=== PATIENT | female | born 1990 | race Caucasian/White ===

== ENCOUNTER → 2018-01-16 18:10 | Outpatient (CLI) | payer MEDICAID, SELFPAY ==
[2018-01-20 15:41] LABS: HPV Reflexed? NOT INDICATED
== END ==
PROVIDERS: Visit Provider Nurse Practitioner Women's Health
DX: Z12.4 Encounter for screening for malignant neoplasm of cervix (principal)
CPT/HCPCS: 88175; G0145

== ENCOUNTER → 2018-01-21 16:35 | Outpatient (CLI) | payer MEDICAID, SELFPAY ==
[2018-01-21 17:49] LABS: Prolactin 17.6 ng/mL; Thyroid Stim Hormone (TSH) 1.02 uIU/mL (0.358-3.74)
[2018-01-21 17:51] LABS: Progesterone Level 13.64 ng/mL (See Comment)
== END ==
PROVIDERS: Family Provider Family Medicine; PCP Family Medicine; Visit Provider Nurse Practitioner Women's Health
DX: N92.6 Irregular menstruation, unspecified (principal)
CPT/HCPCS: 36415; 84144; 84146; 84443

== ENCOUNTER → 2018-01-28 16:33 | Outpatient (CLI) | payer MEDICAID, SELFPAY ==
[2018-01-28 18:45] LABS: Estradiol 35.6 pg/mL
== END ==
PROVIDERS: Family Provider Family Medicine; PCP Family Medicine; Visit Provider Nurse Practitioner Women's Health
DX: N92.6 Irregular menstruation, unspecified (principal)
CPT/HCPCS: 36415; 82670; 83001

== ENCOUNTER → 2021-03-14 15:18 | Outpatient (CLI) | payer MEDICAID, SELFPAY ==
[2021-02-08 13:20] VITALS: BMI 25.7
--- NOTE | 2021-03-14 15:19 | MRI_ITS ---
STUDY: MRI LUMBAR SPINE WITHOUT CONTRAST REASON FOR EXAM: Female, 30 years old. pain TECHNIQUE: Standardized fat and water weighted pulse sequences were obtained in the sagittal and axial following administration of . COMPARISON: None FINDINGS: T12-L1: Normal endplates. Normal disc height, hydration and morphology. Normal bilateral facet joints. Normal central canal and bilateral lateral recesses. Normal bilateral intervertebral neural foramina. Normal lumbar lordosis. There is no substantial scoliosis. Normal conus medullaris that terminates at the L1-L2 level. L1-2: Normal endplates. Normal disc height, hydration and morphology. Normal bilateral facet joints. Normal central canal and bilateral lateral recesses. Normal bilateral intervertebral neural foramina. L2-3: Normal endplates. Normal disc height, hydration and morphology. Normal bilateral facet joints. Normal central canal and bilateral lateral recesses. Normal bilateral intervertebral neural foramina. L3-4: Normal endplates. Normal disc height, hydration and morphology. Normal bilateral facet joints. Normal central canal and bilateral lateral recesses. Normal bilateral intervertebral neural foramina. L4-5: Normal endplates. Normal disc height, hydration and morphology. Normal bilateral facet joints. Normal central canal and bilateral lateral recesses. Normal bilateral intervertebral neural foramina. L5-S1: Normal endplates. Normal disc height, hydration and morphology. Normal bilateral facet joints. Normal central canal and bilateral lateral recesses. Normal bilateral intervertebral neural foramina. Normal visualized sacral ala. Normal visualized paraspinous soft tissue structures. There is an incompletely visualized presumed cystic possibly adnexal structure in the pelvis at 5.5 cm. MRI/Spine Lumbar (Routine) IMPRESSION: 1. Normal lumbar spine. 2. Patent canal, no neural compression. 3. Pelvic cystic structure, refer to pelvic ultrasonography. Electronically Signed: Margo Harris MD at 16:57 EDT Tel , Service support ,
== END ==
PROVIDERS: PCP Family Medicine; Referring Provider Orthopaedic Surgery; Visit Provider Orthopaedic Surgery
DX: M51.37 Other intervertebral disc degeneration, lumbosacral region (principal)
CPT/HCPCS: 72148

== ENCOUNTER 2025-06-10 05:27 | Day surgery (SDC) | payer MEDICAID, SELFPAY ==
[2025-06-10] VITALS (9 sets, daily range): BP systolic 87–112; BP diastolic 58–85; PULSE 81–94; RESP 14–16; TEMP 36.1–36.6; O2SAT 97–100; BMI 25.4
--- OUTSIDE RECORDS SUMMARY | 2025-06-10 05:30 | XMS RPT_ITS | CCD ---
Author Organization [facility] Care Team Providers Care Civil Engineering Specialist Name Role Phone Joyce Montoya PA-C Unavailable Joyce Montoya PA-C Unavailable Podiatry Provider Unavailable Unavailable ENT Provider Unavailable Unavailable Jasvir HARDING, Dr. Sherman Unavailable Orthopedic Provider Unavailable Unavailable Physical Therapy, Gio Mcmahan Unavailable Sterile Proc Tech/Gynecology Prov. Unavailable Un available [facility], [facility] Unavail able Neurology Provider Unavailable Unavailable Cody KING, Tramaine Garcia Unavailable Ella Ferrari MD Unavailable Jeffrey Collins MD Unavailable Whitney MEYERS, Rosemarie Samuel Unavailable Kinza CAR CHANGER, Michaela Unavailable Bel Dias Unavailable Vess CAR CHANGER, Neilee L Unavailable Unavailable Adolfo CAR CHANGER, Leslie Shirley Unavailable Unavailable Jeremy GARG, Ysabel Wright Unavailable Unavailable Danny CAR CHANGER, Nadia Linares Unavailable Unavailab harry Rc CAR CHANGER, Rebeca Ramirez Unavailable Unavailab harry Mathew CAR CHANGER, Page Unavailable Unavailsalina Head PA-C, Manju Garzon Unavailable [phone] Rosemarie Beltran RN Unavailable Unavaila chris Schultz NP-C, Ernesto Figueredo Unavailable Guerrero CAR CHANGER, Genny Unavailable Unavailable Raul WIN, Jennie Sharma Unavailable Ekta CAR CHANGER, Tess Unavailable Unavailable Fernie SANTOS, Genny Unavailable Unavailable Wai SANTOS, Roro Unavailable Unavailable Vahe SANTOS, Beena Unavailable Unavailable Abdirizak CAR CHANGER, Kadeem Unavailable Unavailable Unavailable Unavailable Antunez LATRICEKarolina Unavailable Unavailabl e Physical Therapy Provider Unavailable Unavai lable MONTOYA, JOYCE PAC Consulting Unavailable MONTOYA, JOYCE PAC Primary Care Unavailable MONTOYA, JOYCE PAC Admitting Unavailable MONTOYA, JOYCE PAC Attending Unavailable PROVIDER, UNKNOWN Consulting Unavailable MONTOYA, JOYCE PAC Consulting Unavailable MONTOYA, JOYCE PAC Primary Care Unavailable MONTOYA, JOYCE PAC Admitting Unavailable MONTOYA, JOYCE PAC Attending Unavailable PROVIDER, UNKNOWN Consulting Unavailable ANA, MAT PAC Primary Care Unavailable ANA, MAT PAC Admitting Unavailable MONTOYA, JOYCE PAC Consulting Unavailable ANA, MAT PAC Attending Unavailable PROVIDER, UNKNOWN Consulting Unavailable MONTOYA, JOYCE PAC Attending Unavailable MONTOYA, JOYCE PAC Consulting Unavailable MONTOYA, JOYCE PAC Primary Care Unavailable MONTOYA, JOYCE PAC Admitting Unavailable PROVIDER, UNKNOWN Consulting Unavailable VASSAS, MANJU Attending Unavailable VASSAS, MANJU Primary Care Unavailable VASSAS, MANJU Admitting Unavailable MONTOYA, JOYCE PAC Consulting Unavailable MONTOYA, JOYCE PAC Referring Unavailable PROVIDER, UNKNOWN Consulting Unavailable VASSAS, MANJU Attending Unavailable VASSAS, MANUJ Primary Care Unavailable VASSAS, MANJU Admitting Unavailable MONTOYA, JOYCE PAC Consulting Unavailable PROVIDER, UNKNOWN Consulting Unavailable VEGA ROSADO Attending Unavailable VEGA ROSADO Primary Care Unavailable VEGA ROSADO Admitting Unavailable MONTOYA, JOYCE PAC Referring Unavailable MONTOYA, JOYCE PAC Consulting Unavailable PROVIDER, UNKNOWN Consulting Unavailable DEON JUAREZ DO Attending Unavailable DEON JUAREZ DO Primary Care Unavailable DEON JUAREZ DO Admitting Unavailable MONTOYA, JOYCE PAC Consulting Unavailable MONTOYA, JOYCE PAC Referring Unavailable PROVIDER, UNKNOWN Consulting Unavailable MONTOYA, JOYCE PAC Consulting Unavailable JORDAN BEAN DR Attending Unavailable JORDAN BEAN DR Primary Care Unavailable JORDAN BEAN DR Admitting Unavailable PROVIDER, UNKNOWN Consulting Unavailable Seville TERESE-CRosemarie Primary Care Provider Whitney GUDINO-CRosemarie Referring Provider [phone] Tramaine Fuentes MD Attending Provider Dr. Jr Pacheco MD Attending Provider [phone] Tramaine Fuentes Attending Unavailable Seville Rosemarie GUDINO Primary Care Unavailable Seville Rosemarie GUDINO Referring Unavailable [facility] Unavailable Jr Pacheco Attending Unavailable Tramaine Fuentes Attending Unavailable Tramaine Fuentes Referring Unavailable [facility] Rosemarie [facility] Unavailable Medications Current Medications Medication Drug Class(es) Dates Sig (Normalized) Sig (Original) acetaminophen 500 mg / pamabrom 25 mg oral tablet (2 sources) Start: 05-14-2025 Acetaminophen-Pama brom (Midol) 500-25 mg tablet Active 1 {tbl} PO EVERY 6 HOURS as needed May 14, 2025 12:00am famciclovir 500 mg oral tablet (20 sources) Herpes Simplex Virus Nucleoside Analog DNA Polymerase Inhibitor Start: 10-30-2024 famciclovir 500 mg tablet ; 3 (three) Tablet now for 0 days Quantity: 3 {Tablet} Refills: 0 Ordered: 30-Oct-2024 MIRA Montoya Start: 30-Oct-2024 Start: 01-15-2024 End: 09-23-2024 famciclovir 500 mg tablet ; 3 (three) Tablet now for 0 days Quantity: 3 {Tablet} Refills: 0 Ordered: 23-Sep-2024 DANIELLE Carreno Start: 15-Jan-2024 End: 23-Sep-2024 Status: Inactive Start: 11-02-2020 End: 01-17-2021 Famciclovir 500 MG Oral Tabl et ; 3 (three) Tablet now for 0 days Quantity: 3 {Tablet} Refills: 0 Ordered: 17-Jan-2021 LATRICE Solano Start: 02-Nov-2020 End: 17-Jan-2021 Status: Inactive 72 hr scopolamine 0.0139 mg/hr transdermal system (20 sources) Anticholinergic Start: 11-20-2023 apply 1 dose transdermal route once daily as needed scopolamine 1 mg over 3 days transdermal patch ; 1 (one) Patch every 3rd day prn for 0 days Quantity: 6 {Patch} Refills: 0 Ordered: 20-Nov-2023 DANIELLE Carreno Start: 20-Nov-2023 Start: 11-15-2021 End: 03-20-2022 apply 1 dose transdermal route every hour Scopolamine 1 MG/3DAYS Transdermal Patch 72 Hour ; 1 (one) Patch every 3rd day for 0 days Quantity: 6 {Patch} Refills: 0 Ordered: 20-Mar-2022 DANIELLE Enciso Start: 15-Nov-2021 End: 20-Mar-2022 Status: Inactive Completed/Discontinued Medications Medication Drug Class(es) Dates Sig (Normalized) Sig (Original) acetaminophen 325 mg / HYDROcodone bitartrate 5 mg oral tablet (20 sources) Opioid Agonist NORCO, 5-325MG (Oral Tablet) ; (5-325 MG) Status: Inactive [id number] actuat albuterol 0.09 mg/actuat metered dose inhaler (20 sources) beta2-Adrenergic Agonist Start: 11-18-2019 End: 05-11-2020 take 2 puff(s) by inhalation every four to six hours ProAir HFA 108 (90 Base) MCG/ACT Inhalation Aerosol Solution ; 2 (two) puffs Every 4-6 hours for 0 days Quantity: 1 {Inhaler} Refills: 0 Ordered: 11-May-2020 LATRICE Solano Start: 18-Nov-2019 End: 11-May-2020 Status: Inactive Comments: Maximum 12 puffs/day Start: 06-04-2019 End: 07-14-2019 take 2 puff(s) by inhalation every four to six hours as needed Ventolin HFA 108 (90 Base) MCG/ACT Inhalation Aerosol Solution ; 2 (two) puff(s) every 4-6hrs prn for 0 days Quantity: 1 {Inhaler} Refills: 0 Ordered: 14-Jul-2019 BRITANY Luna Start: 04-Jun-2019 End: 14-Jul-2019 Status: Inactive Comment on above: Maximum 12 puffs/day amoxicillin 875 mg / clavulanate 125 mg oral tablet (20 sources) Penicillin-class Antibacterial Start: 7 End: 7 take 1 tablet by mouth twice daily at mealtime Augmentin 875-125 MG Oral Tablet ; 1 Tab two times daily for 10 days Quantity: 20 {Tablet} Refills: 0 Ordered: 19-Jun-2017 MIRA Olson Start: 19-Jun-2017 End: 29-Jun-2017 Status: Inactive Comments: Take with food Comment on above: Take with food azithromycin 250 mg oral tablet (20 sources) Macrolide Antimicrobial Start: 9 End: 9 Zithromax Z-Vance 250 MG Oral Tablet ; 2 (two) Tabs day one, then one daily for 4 days for 0 days Quantity: 1 {Package} Refills: 0 Ordered: 14-Jul-2019 BRITANY Luna Ysabel Wright Start: 04-Jun-2019 End: 14-Jul-2019 Status: Inactive Start: 09-27-2015 End: 09-30-2015 take 1 tablet by mouth once daily AZITHROMYCIN, 500MG (Oral Tablet) ; 1 (one) Tablet daily for 3 days Quantity: 3 {Tablet} Refills: 0 Ordered: 27-Sep-2015 MD Ella Ferrari Start: 27-Sep-2015 End: 30-Sep-2015 Status: Inactive Start: 09-29-2014 End: 04-15-2015 ZITHROMAX Z-VANCE, 250MG (Oral Tablet) ; 2 (two) Tabs day one, then one daily for 4 days for 0 days Quantity: 1 {Package} Refills: 0 Ordered: 15-Apr-2015 LATRICE Delgado Start: 29-Sep-2014 End: 15-Apr-2015 Status: Inactive ciprofloxacin 250 mg oral tablet (20 sources) Quinolone Antimicrobial Start: 08-31-2023 End: 09-05-2023 ciprofloxacin 250 mg tablet ; 1 (one) tablet two times daily for 5 days Quantity: 10 {Tablet} Refills: 0 Ordered: 31-Aug-2023 MIRA Montoya Start: 31-Aug-2023 End: 05-Sep-2023 Status: Inactive Start: 05-14-2023 End: 05-19-2023 Cipro 250 mg tablet ; 1 (one ) Tablet two times daily for 5 days Quantity: 10 {Tablet} Refills: 0 Ordered: 14-May-2023 MIRA Montoya Start: 14-May-2023 End: 19-May-2023 Status: Inactive cyclobenzaprine hydrochloride 10 mg oral tablet (20 sources) Muscle Relaxant Start: 01-17-2021 End: 10-20-2021 Cyclobenzaprine HCl 10 MG Oral Tablet ; 1 (one) Tablet beofre bed if needed for muscle spasms for 0 days Quantity: 30 {Tablet} Refills: 0 Ordered: 20-Oct-2021 LATRICE Dash Start: 17-Jan-2021 End: 20-Oct-2021 Status: Inactive Comments: may cause drowsiness Comment on above: may cause drowsiness methylPREDNISolone 4 mg oral tablet (20 sources) Corticosteroid Start: 04-10-2016 End: 04-16-2016 MEDROL, 4MG (Oral Tablet Therapy Pack) ; 1 Tab as directed for 6 days Quantity: 1 {dose_pack} Refills: 0 Ordered: 01-Jun-2016 MIRA Olson Start: 10-Apr-2016 End: 16-Apr-2016 Status: Inactive Start: 01-22-2014 End: 01-28-2014 MEDROL (VANCE), 4MG (Oral Tabl et) ; 1 (one) Tablet as directed on pack for 6 days Quantity: 1 {Dose_Pack} Refills: 0 Ordered: 22-Jan-2014 MD Ella Ferrari Start: 22-Jan-2014 End: 28-Jan-2014 Status: Inactive Naproxen (20 sources) Nonsteroidal Anti-inflammatory Drug Naproxen Status: Inactive oseltamivir 75 mg oral capsule (20 sources) Neuraminidase Inhibitor Start: 017 End: take 1 capsule by mouth twice daily Tamiflu 75 MG Oral Capsule ; 1 (one) Cap twice daily for 5 days Quantity: 10 {Capsule} Refills: 0 Ordered: 24-Nov-2016 SHAHNAZ Schultz Start: 24-Nov-2016 End: 29-Nov-2016 Status: Inactive phenazopyridine hydrochloride 100 mg oral tablet (20 sources) Start: 014 End: 014 take 1 tablet by mouth three times daily PYRIDIUM, 100MG (Oral Tablet) ; 1 (one) Tablet TID for 2 days Quantity: 6 {Tablet} Refills: 0 Ordered: 13-May-2014 MIRA Head Start: 13-May-2014 End: 15-May-2014 Status: Inactive predniSONE 20 mg oral tablet (20 sources) Start: 023 End: predniSONE 20 mg tablet ; 1 (one) Tablet as directed for 0 days Quantity: 20 {Tablet} Refills: 0 Ordered: 23-Sep-2024 DANIELLE Carreno Start: 20-Aug-2023 End: 23-Sep-2024 Status: Inactive Comments: Take 3tabs qd for 3 days thenTake 2tabs qd for 3 days thenTake 1tab qd for 3 days thenTake 1/2tab qd for 4 days. Start: 03-20-2022 End: 06-29-2022 take 3 tablets by mouth once daily, then take 2 tablets by mouth once daily, then take 1 tablet by mouth once daily, then take 0.5 tablet by mouth once daily predniSONE 20 MG Oral Tablet ; 1 (one) Tablet as directed for 0 days Quantity: 20 {Tablet} Refills: 0 Ordered: 29-Jun-2022 LATRICE Dash Amanda Start: 20-Mar-2022 End: 29-Jun-2022 Status: Inactive Comments: Take 3tabs qd for 3 days thenTake 2tabs qd for 3 days thenTake 1tab qd for 3 days thenTake 1/2tab qd for 4 days. Comment on above: Take 3tabs qd for 3 days thenTake 2tabs qd for 3 days thenTake 1tab qd for 3 days thenTake 1/2tab qd for 4 days. progesterone 200 mg oral capsule (20 sources) Progesterone Start: 07-08-2024 End: 09-23-2024 proGESTerone micronized 200 mg capsule ; 1 (one) Capsule by mouth and 1 capusle vaginal at night before bed for 0 days Quantity: 60 {Capsule} Refills: 2 Ordered: 23-Sep-2024 DANIELLE Carreno Start: 08-Jul-2024 End: 23-Sep-2024 Status: Inactive Start: 01-29-2023 End: 02-12-2023 take 1 capsule by mouth at bedtime Progesterone 200 MG Oral Capsule ; 1 (one) Capsule at bedtime for 0 days Quantity: 30 {Capsule} Refills: 3 Ordered: 12-Feb-2023 DANIELLE Carreno Start: 29-Jan-2023 End: 12-Feb-2023 Status: Inactive sulfamethoxazole 800 mg / trimethoprim 160 mg oral tablet (20 sources) Dihydrofolate Reductase Inhibitor Antibacterial, Sulfonamide Antimicrobial Start: 08-27-2023 End: 09-01-2023 sulfamethoxazole 800 mg-trimethoprim 160 mg tablet ; 1 (one) tablet two times daily for 5 days Quantity: 10 {Tablet} Refills: 0 Ordered: 27-Aug-2023 MIRA Montoya Start: 27-Aug-2023 End: 01-Sep-2023 Status: Inactive Start: 03-14-2023 End: 03-19-2023 take 1 tablet by mouth twice daily Sulfamethoxazole-Trimethoprim 800-160 MG Oral Tablet ; 1 (one) Tablet two times daily for 5 days Quantity: 10 {Tablet} Refills: 0 Ordered: 14-Mar-2023 MIRA Montoya Start: 14-Mar-2023 End: 19-Mar-2023 Status: Inactive Start: 03-20-2022 End: 03-23-2022 take 1 tablet by mouth twice daily Sulfamethoxazole-Trimethoprim 800-160 MG Oral Tablet ; 1 (one) Tablet two times daily for 3 days Quantity: 6 {Tablet} Refills: 0 Ordered: 20-Mar-2022 MIRA Montoya Start: 20-Mar-2022 End: 23-Mar-2022 Status: Inactive Start: 04-04-2018 End: 04-11-2018 take 1 tablet by mouth twice daily Bactrim DS 800-160 MG Oral Tablet ; 1 Ta b two times daily for 7 days Quantity: 14 {Tablet} Refills: 0 Ordered: 04-Apr-2018 MIRA Olson Start: 04-Apr-2018 End: 11-Apr-2018 Status: Inactive SUMAtriptan 50 mg oral tablet (20 sources) Serotonin-1b and Serotonin-1d Receptor Agonist Start: 10-27-2015 End: 06-19-2017 Imitrex 50 MG Oral Tablet ; 1 (one) Tablet Tablet at headache onset and then repeat dose 2 hours later if headache persists for 0 days Quantity: 9 {Tablet} Refills: 0 Ordered: 19-Jun-2017 LATRICE Solano Start: 27-Oct-2015 End: 19-Jun-2017 Status: Inactive traMADol hydrochloride 50 mg oral tablet (20 sources) Opioid Agonist Start: 04-10-2016 End: 06-19-2017 take 1 tablet by mouth every six hours as needed Ultram 50 MG Oral Tablet ; 1 (one) Tablet Tablet every 6 hours as needed for 0 days Quantity: 30 {Tablet} Refills: 0 Ordered: 19-Jun-2017 LATRICE Solano Start: 10-Apr-2016 End: 19-Jun-2017 Status: Inactive Comments: Medication taken as needed. Comment on above: Medication taken as needed. Problems Active Problems Problem Classification Problem Date Documented Da te Episodic/Chronic Abdominal pain (20 sources) Finding of sensation of abdomen; Translations: [Unspecified abdominal pain] 01-26-2023 Episodic Acute bronchitis (20 sources) Acute bronchitis; Translations: [Acute bronchitis, unspecified] 06-19-2017 Episodic Administrative/social admission (20 sources) Issue of repeat prescriptions 07-19-2016 Episodic Allergic reactions (20 sources) Contact dermatitis; Translations: [Unspecified contact dermatitis, unspecified cause] 03-23-2022 Episodic Conditions associated with dizziness or vertigo (20 sources) Dizziness; Translations: [Dizziness and giddiness] 10-20-2021 Episodic Contraceptive and procreative management (20 sources) Reproductive finding; Translations: [Encounter for procreative management, unspecified] 06-06-2016 Episodic Genitourinary symptoms and ill-defined conditions (20 sources) Dysuria; Translations: [Dysuria] 03-14-2023 Episodic Headache; including migraine (20 sources) Acute headache; Translations: [Headache] 10-27-2015 Episodic Hemorrhage during ; abruptio placenta; placenta previa (20 sources) Antepartum hemorrhage; Translations: [Antepartum hemorrhage, unspecified, unspecified trimester] 08-30-2016 Episodic Influenza (20 sources) Influenza; Translations: [Influenza due to unidentified influenza virus with other respiratory manifestations] 11-24-2016 Episodic Lymphadenitis (20 sources) Cervical lymphadenopathy; Translations: [Localized enlarged lymph nodes] 03-03-2019 Episodic Menstrual disorders (20 sources) Missed period; Translations: [Irregular menstruation, unspecified] 02-02-2023 Chronic Noninfectious gastroenteritis (20 sources) Acute gastroenteritis; Translations: [Noninfective gastroenteritis and colitis, unspecified] 07-24-2017 Episodic Other bone disease and musculoskeletal deformities (20 sources) Costal chondritis; Translations: [Chondrocostal junction syndrome [Tietze]] 04-10-2016 Episodic Other circulatory disease (20 sources) Pulmonary congestion ; Translations: [Other specified symptoms and signs involving the circulatory and respiratory systems] 06-04-2019 Episodic Other complications of (20 sources) H/O: miscarriage; Translations: [Supervision of with other poor reproductive or obstetric history, unspecified trimester] 02-05-2023 Episodic Other connective tissue disease (20 sources) Pain in right foot; Translations: [Pain in right foot] 05-12-2020 Episodic Other connective tissue disease (20 sources) Muscle spasm of cervical muscle of neck; Translations: [Other muscle spasm] 12-17-2017 Episodic Other connective tissue disease (20 sources) Osteophyte of bone; Translations: [Enthesopathy, unspecified] 12-10-2017 Episodic Other female genital disorders (20 sources) Abnormal uterine bleeding; Translations: [Abnormal uterine and vaginal bleeding, unspecified] 08-27-2023 Chronic Other gastrointestinal disorders (20 sources) Dysphagia; Translations: [Dysphagia, unspecified] 10-20-2021 Episodic Other injuries and conditions due to external causes (20 sources) Injury of shoulder region; Translations: [Unspecified injury of shoulder and upper arm, unspecified arm, initial encounter] 08-27-2023 Episodic Other injuries and conditions due to external causes (20 sources) Foreign body in vagina; Translations: [Foreign body in vulva and vagina, initial encounter] 03-25-2014 Episodic Other nervous system disorders (20 sources) Carpal tunnel syndrome of left wrist; Translations: [Carpal tunnel syndrome, left upper limb] 04-04-2018 Chronic Other nervous system disorders (20 sources) Hyperreflexia; Translations: [Abnormal reflex] 07-14-2019 Episodic Other non-traumatic joint disorders (20 sources) Pain in left knee; Translations: [Pain in joint, lower leg] 11-04-2018 Episodic Other non-traumatic joint disorders (20 sources) Ankle pain; Translations: [Pain in right ankle and joints of right foot] 03-11-2018 Episodic Other non-traumatic joint disorders (20 sources) Pain in right knee; Translations: [Pain in joint, lower leg] 03-13-2014 Episodic Other non-traumatic joint disorders (20 sources) Pain in right shoulder; Translations: [Pain in joint, shoulder region] Onset: 10-02-2024 09-23-2024 Episodic Other nutritional; endocrine; and metabolic disorders (20 sources) Overweight in adulthood with body mass index of 25 or more but less than 30; Translations: [Body mass index (BMI) 26.0-26.9, adult] 06-04-2019 Episodic Other nutritional; endocrine; and metabolic disorders (12 sources) Body mass index 25-29 - overweight; Translations: [Body mass index (BMI) 26.0-26.9, adult] 06-04-2019 Episodic Other and delivery including normal (20 sources) ; Translations: [Encounter for supervision of normal , unspecified, unspecified trimester] 08-23-2016 Episodic Other screening for suspected conditions (not mental disorders or infectious disease) (20 sources) Imaging result abnormal; Translations: [Abnormal findings on diagnostic imaging of other specified body structures] 12-18-2017 Chronic Other screening for suspected conditions (not mental disorders or infectious disease) (20 sources) Other specified abnormal findings of blood chemistry; Translations: [Other abnormal blood chemistry] 08-27-2023 Episodic Other skin disorders (20 sources) Nodule of buttock; Translations: [Localized swelling, mass and lump, trunk] 04-04-2018 Episodic Other skin disorders (20 sources) Pigmented skin lesion ; Translations: [Disorder of pigmentation, unspecified] 07-10-2022 Episodic Other skin disorders (20 sources) Mass of sacrum; Translations: [Localized swelling, mass and lump, trunk] 12-18-2017 Episodic Other upper respiratory infections (20 sources) Acute pharyngitis; Translations: [Acute pharyngitis, unspecified] 09-29-2015 Episodic Otitis media and related conditions (20 sources) Acute suppurative otitis media without spontaneous rupture of ear drum; Translations: [Acute suppurative otitis media without spontaneous rupture of ear drum, bilateral] 06-19-2017 Episodic Pneumonia (except that caused by tuberculosis or sexually transmitted disease) (20 sources) Atypical pneumonia; Translations: [Pneumonia, unspecified organism] 07-14-2019 Episodic Residual codes; unclassified (20 sources) Tobacco user; Translations: [Tobacco use] 08-27-2023 Episodic Residual codes; unclassified (20 sources) Edema of face ; Translations: [Localized edema] 08-27-2023 Episodic Spondylosis; intervertebral disc disorders; other back problems (4 sources) Degeneration of lumbosacral intervertebral disc; Translations: [Degeneration of intervertebral disc of lumbosacral region] 02-08-2021 Chronic Spondylosis; intervertebral disc disorders; other back problems (20 sources) Pain in the coccyx; Translations: [Sacrococcygeal disorders, not elsewhere classified] Onset: 01-09-2025 06-04-2019 Episodic Unclassified (20 sources) Abortions, spontaneous Onset: 01-29-2023 05-14-2023 Comment on above: 1. Unclassified (20 sources) Number of Children 05-14-2023 Comment on above: 1. Unclassified (20 sources) Number of Pregnancies 05-14-2023 Comment on above: 2. Unclassified (20 sources) Vaginal deliveries 05-14-2023 Comment on above: 1. Unclassified (14 sources) Transition into care - The patient is transitioning into care from an emergency room and a summary of care was reviewed. 07-24-2017 Unclassified (1 source) Follow up from hospital stay - Name of Hospital: [facility]. Date of Admission: 09/20/24. Date of Discharge: 09/21/24. The patient was hospitalized for upper extremity and shoulder pain . New medications include bactrim and ketorolac . Patient did not have any consultations ordered while in the hospital. No post hospital therapies were ordered. Patient was discharged to home. Current Symptoms: shoulder pain right . 09-23-2024 Unclassified (3 sources) [ADDITIONAL REASON] Follow up from hospital stay - Name of Hospital: [facility]. Date of Admission: 09/20/24. Date of Discharge: 09/21/24. The patient was hospitalized for upper extremity and shoulder pain . New medications include bactrim and ketorolac . Patient did not have any consultations ordered while in the hospital. No post hospital therapies were ordered. Patient was discharged to home. Current Symptoms: shoulder pain right . Note for Follow up from hospital stay: Patient reports that she has been having pain in her right shoulder since she had a surgery for a tubal ligation in July. She has been using Tylenol and Ibuprofen without lasting relief of her pain. She reports numbness in her arm at times, but denies any weakness of the arm. Her shoulder x-ray was normal in the ER. 09-23-2024 Unclassified (9 sources) Follow up from hospital stay - Name of Hospital: [facility]. Date of Admission: 09/20/24. Date of Discharge: 09/21/24. The patient was hospitalized for upper extremity and shoulder pain . New medications include bactrim and ketorolac . Patient did not have any consultations ordered while in the hospital. No post hospital therapies were ordered. Patient was discharged to home. Current Symptoms: shoulder pain right . Note for Follow up from hospital stay: Patient reports that she has been having pain in her right shoulder since she had a surgery for a tubal ligation in July. She has been using Tylenol and Ibuprofen without lasting relief of her pain. She reports numbness in her arm at times, but denies any weakness of the arm. Her shoulder x-ray was normal in the ER. 09-23-2024 Urinary tract infections (20 sources) Urinary tract infectious disease; Translations: [Urinary tract infection, site not specified] 11-07-2016 Episodic Viral infection (20 sources) Herpes labialis; Translations: [Herpesviral vesicular dermatitis] 11-02-2020 Episodic Past or Other Problems Problem Classification Problem Date Documented Date Episodic/Chronic Spontaneous (20 sources) Miscarriage; Translations: [Complete or unspecified spontaneous without complication] Onset: 06-06-2024 08-27-2023 Episodic Comment on above: recheck quant, dropp ing well Unclassified (20 sources) UTI - Symptoms include dysuria, urinary frequency, urinary urgency, dark urine, malodorous urine and back pain, but do not include hematuria, flank pain or abdominal pain. The pain is located in the back (low back). There is no radiation. The patient describes the pain as aching. Onset was sudden 1 week(s) ago. There is no known event that preceded symptom onset. The symptoms occur constantly. The patient describes this as moderate in severity and worsening. Associated symptoms do not include fever, chills, nausea, urinary incontinence, urethral discharge or vaginal discharge. The frequency of episodes has been 2 time(s) a year. Risk factors do not include indwelling catheter or current . Note for UTI: Used AZO yesterday with little relief of symptoms. 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 The horse suddenly jerked its head and she reports feeling something pop in her shoulder.) and has been occurring for 4 days. The course has been constant. The pain is characterized as a moderate sharp stabbing. The pain is described as being located in the right shoulder and is aggravated by any movement (Patient has bee wearing her arm in a sling she bought to prevent movement.). Relieving factors include nothing (Reports no relief from Tylenol or Ibuprofen). The symptoms have been associated with painful ROM, but have not been associated with muscle swelling, joint swelling, popping/crepitus, warmth, erythema, fever or chills. The shoulder pain was preceded by trauma. 08-20-2023 Unclassified (20 sources) Edema - The onset of the edema has been acute and has been occurring in a persistent pattern for 1 day (3 hours ( pt woke up at 630 am and noticed it then)) . The edema occurs abruptly. The edema is characterized as mild , and the course of the edema has been increasing (Patient feels that it has been getting worse). It affects the face (left cheek). The edema was precipitated by nothing (Denies any new exposures). The symptoms are relieved by nothing (Patient has not yet tried any OTC treatment). There have been no associated symptoms. Note for Edema: She denies any pain, facial weakness, vision changes, itching, or rash.She reports that she has a pus pocket above one of her upper teeth on the left side. She states that the dentist is aware of this and told her it is not a problem. She denies any associated tooth pain or fever. 07-17-2023 Unclassified (20 sources) UTI - Symptoms include dysuria, urinary frequency, hematuria (Reports blood when wiping after urinating), dark urine and back pain, but do not include urinary urgency, malodorous urine, flank pain or abdominal pain. The pain is located in the back. There is no radiation. The patient describes the pain as sharp, aching and burning. Onset was gradual 1 week(s) ago. There is no known event that preceded symptom onset. The symptoms occur constantly. The patient describes this as moderate in severity and worsening. Associated symptoms do not include fever, chills, nausea, vomiting or vaginal discharge. Note for UTI: Patient has not tried any OTC treatments at this time. 05-14-2023 Unclassified (20 sources) UTI - Symptoms include dysuria, urinary frequency, urinary urgency and malodorous urine, but do not include hematuria, dark urine, flank pain, abdominal pain or back pain. There is no assiciated pain. Onset was sudden 1 week(s) ago. There is no known event that preceded symptom onset. The symptoms occur frequently. The patient describes this as moderate in severity and unchanged. Symptoms are not relieved by phenazopyridine (Last took 3 days ago.). Associated symptoms do not include fever, chills, nausea, vomiting or vaginal discharge. 03-14-2023 Unclassified (20 sources) Menstrual problems - The menstrual problems are characterized as heavy menses and have been occurring in an episodic pattern. Each episode lasts 2 hours. The first day of the last menstrual period was : (currently). Currently : no (miscarriage). The symptoms have been associated with dizziness, but have not been associated with abdominal pain, anxiety, breast engorgement, chills, abdominal cramps, depression, diaphoresis, painful intercourse, fever, hot flashes, nausea, pallor, syncope, vomiting, weight gain, weight loss, acne, low back pain, hirsutism, galactorrhea or stress. There is no medical history of diabetes, thyroid disease, , miscarriage, pelvic inflammatory disease, ectopic , uterine/cervical cancer, emotional problems, endometriosis, blood dyscrasias, anorexia nervosa, gonadal dysgenesis, hypoplastic uterus, menopause, endocrine disorder or vaginitis. The patient denies the use of oral contraceptives, anticoagulants, aspirin, digitalis, adrenal steroids, thyroid medications or chemotherapy. There is no history of use of intrauterine device, hormone replacement therapy, infertility treatment or radiation treatment. Note for Menstrual problems: pt states bleeding is still very heavy changing pads every two hours went to ER- ER doctor was going to give medication to slow down bleeding and did not approve it 02-12-2023 Unclassified (20 sources) Absence of Menstruation/Amenorrh ea - Contraception is not used. The first day of the LMP was : (12/26/22). Menstrual history is described as regular. Note for Absence of menstruation: having abdominal cramping and did have some spotting a couple of days ago, no other symptoms 01-26-2023 Unclassified (20 sources) Procedure - Patient is here today to have skin lesion removed from the right side of neck. Patient had this lesion evaluated approximately 2 weeks ago and wanted to reschedule at a later time for removal. 07-10-2022 Unclassified (20 sources) Skin lesion - The skin lesion appeared gradually and has been occurring for years (pt states she has had it almost her whole life.). It has been increasing in size. The lesion is characterized as brown, murphy, crusty and raised above the skin. The lesion is located on the neck (right side.). Note for Skin lesion: lesion is skin colored with some brown/martins coloring. Patient reports that is feels firm to touch. She reports that she is not bothered by the spot, but her wanted her to have it checked. 06-29-2022 Unclassified (20 sources) Rash - The onset of the rash has been sudden and has been occurring in a persistent pattern for 3 days. The course has been increasing. The rash is characterized as red and raised above the skin. The rash was first seen on the lower extremity (both legs). It spread to the lower extremity (Has been spreading up both legs, but she also feels itchy all over.). There has been associated itching and erythema, while there has been no associated pain, drainage or edema. There has been associated itching, while there has been no chills, fever, malaise or pain. Note for Rash: Patient was working outside before the rash started 03-20-2022 Unclassified (20 sources) [ADDITIONAL REASON] UTI - Symptoms include dysuria, urinary frequency, urinary urgency, dark urine, abdominal pain (lower) and back pain, but do not include hematuria, malodorous urine or flank pain. The pain is located in the suprapubic area, in the back and in the left lumbar area. There is no radiation. The patient describes the pain as burning. Onset was sudden 1 week(s) ago. There is no known event that preceded symptom onset. The symptoms occur constantly. Symptoms are relieved by cranberry juice (helps only temporarily). Associated symptoms do not include fever, nausea or vaginal discharge. Note for UTI: Patient has a history of frequent UTIs 03-20-2022 Unclassified (20 sources) Dizziness - The onset of the dizziness has been sudden and has been occurring in a persistent pattern for 3 weeks. The course has been constant. The dizziness is characterized as spinning of the environment. The dizziness is precipitated by position change, head turning and standing suddenly. There has been associated nausea, vomiting, tinnitus and neck pain (She has noted a tender spot on the back of her head/neck that seems to make the dizziness worse when she presses on it), while there has been no associated headache, fever, ear pain, ear fullness, neck stiffness, visual changes, facial paralysis or falling episodes. The dizziness is relieved by rest. The dizziness is exacerbated by head turning, bending over, lying down, rolling over in bed, getting up quickly, standing and walking. The symptoms have been associated with tinnitus, while the symptoms have not been associated with anxiety, diplopia, fever, headache, loss of balance, loss of hearing, neurologic disease, paresthesia, recent head trauma or syncope. Note for Dizziness: States she has been wearing bands to help with vertigo and nausea along with going to chiropractor. This has worked for her in the past, but does not seem to be helping now. She reports that this usually happens once a year. Has tried meclizine in the past without relief of symptoms. Saw neurology 2 years ago for similar symptoms and was diagnosed with severe vertigo.States it feels like something is stuck in throat when she swallows and when she is laying down. This has been happening for the past 2 weeks. She denies any pain with swallowing. Has not noted worsening of symptom with swallowing solids vs liquids. 10-20-2021 Unclassified (20 sources) Back pain - The onset of the back pain has been gradual and has been occurring in an intermittent pattern for months. The course has been increasing. The pain is characterized as a dull ache (spasms). The pain is located in the lower back (left) and does not radiate. There are no precipitating factors. The symptoms have no relieving factors. There has been no associated bladder dysfunction, dysmenorrhea, dysuria, fever, hip pain, history of back surgery, incontinence of stool, incontinence of urine, leg weakness, paresthesias in leg or trauma. Note for Back pain: she was in office for this in August 2020 , had back xrays followed by physical therapy/she stopped the PT -stated it was not helping 01-17-2021 Unclassified (20 sources) Back pain - The onset of the back pain has been gradual and has been occurring in a persistent pattern for 2 months. The course has been increasing. The pain is characterized as stabbing and piercing. The pain is located in the lower back (left flank) and does not radiate. There are no precipitating factors. The symptoms are aggravated by exertion and have no relieving factors. The pain has been associated with flank pain, while there has been no associated abdominal pain, chills, bladder dysfunction, dysuria or fever. Note for Back pain: LMP last week 08-24-2020 Unclassified (20 sources) Foot pain - The pain is in the right foot and is located in the lateral column. The onset of the foot pain was sudden following no specific incident and has been occurring in a persistent pattern for 2 months. The course has been increasing. The pain is moderate. The pain is characterized as a dull aching. The pain is aggravated by physical activity and prolonged standing. The pain has not been relieved by anything. There has been no associated swelling or pain in ankle. There have been no previous diagnostic tests. There have been no previous evaluations. 05-11-2020 Unclassified (18 sources) Follow up consultation - The patient is here to follow-up after Emergency Room/Urgent Care on : (11/15/2019). Current symptoms include cough (chest hurts with coughing and shortness of breath). Note for Consultation follow-up: treated with injections-rocephin and augmentin-pneumonia; negative for flu; cough is worse at night when fever returns... 11-18-2019 Unclassified (18 sources) [ADDITIONAL REASON] Transition into care - The patient is transitioning into care from an emergency room and a summary of care was not provided. 11-18-2019 Unclassified (20 sources) Follow up consultation - The patient is here to follow-up after Emergency Room/Urgent Care on : (07/13/19). Current symptoms include dizziness (had been vomiting initially, but no nausea or vomiting today.). Note for Consultation follow-up: Pt. was given an rx antivert in ER, which she did not fill, since she has had it before and it was ineffective. They requested referral to neuro; labs reviewed : CBC, CMP, UA all WNL 07-14-2019 Unclassified (20 sources) Cold Symptoms - Symptoms include sneezing, nasal congestion, runny nose, non-purulent sputum, ear pain (draining), ear fullness, sore throat, dry cough (left rib area pain with cough), wheezing, fever, chills, general malaise and headache. The onset was gradual 5 day(s) ago. The symptoms occur frequently. The patient describes this as moderate in severity and worsening. Current treatment includes non-prescription cold medication and cough suppressants. The patient has been exposed to an individual with similar symptoms. Patient denies history of seasonal allergies, recurrent sinusitis, asthma or recurrent ear infections. 06-04-2019 Unclassified (20 sources) Lump - Patient is here today with a concern of lump located on left side of jawline. Noticed the lump being present yesterday and has increased in size. Will have pain of the area if she turns her head to the left. Area is tender to touch. No sore throat, mouth/toothpain, fever or chills. 03-03-2019 Unclassified (20 sources) Knee Pain - The onset of the knee pain has been sudden following no specific incident (woke up one morning with knee pain and popping) and has been occurring in a persistent pattern for 2 weeks. The course has been gradually worsening. The knee pain is moderate in the left knee. The knee pain is characterized as a dull aching. The knee pain is described as being located in the anterior knee. The knee pain is aggravated by physical activity. There were no relieving factors. The symptoms have been associated with catching, locking, painful ROM, decreased ROM and popping/crepitus, but have not been associated with joint swelling, instability, warmth, erythema, fever or other joint complaints. There were no previous diagnostic tests. There were no previous evaluations. There has been no previous physical therapy. There has been no previous surgeries. Assistive devices include bracing. Note for Knee pain: denies historical injury to knee 10-31-2018 Unclassified (18 sources) UTI - Symptoms include dysuria, urinary frequency, urinary urgency, dark urine, abdominal pain and back pain, but do not include hematuria or flank pain. The pain is located in the suprapubic area and in the back. The pain radiates to the back. The patient describes the pain as burning. Onset was gradual 1 week(s) ago. The symptoms occur frequently. The patient describes this as moderate in severity and worsening. Symptoms are relieved by cranberry juice. Associated symptoms do not include fever, chills, nausea, vomiting or urinary incontinence. 04-04-2018 Unclassified (18 sources) [ADDITIONAL REASON] Wrist Pain - The pain is in the left wrist. The onset of the wrist pain has been gradual and has been occurring in a persistent pattern for months. The course has been worsening. The wrist pain is characterized as a moderate to severe burning sensation. Aggravating factors include any movement. There are no relieving factors. Associated features include painful ROM, but do not include joint swelling, instability, popping/crepitus, warmth, erythema or fever. 04-04-2018 Unclassified (20 sources) Ankle pain - The onset of the ankle pain has been sudden following no specific incident and has been occurring in a persistent pattern for 2 days. The course has been gradually worsening. The pain is characterized as a moderate sharp stabbing. The pain is in the right ankle and is described as being located in the lateral ankle. The pain is aggravated by physical activity. There are no relieving factors. There have been no previous diagnostic tests. There has been no previous medication use. Note for Ankle pain: Pt. has used an haresh wrap and ankle brace with no improvement. requesting off work slip for today 03-11-2018 Unclassified (20 sources) Neck Pain - The onset of the neck pain has been gradual following no specific incident and has been occurring in a persistent pattern for 4 days. The course has been gradually worsening. The neck pain is described as a moderate sharp stabbing. The neck pain is described as being located in the right lateral neck and radiating to the into right shoulder. Aggravating factors include lifting, position of arm and extension. There have been no relieving factors. Associated features include neck stiffness, shoulder pain (right) and arm weakness, but there is no associated catching, fever or paresthesias in arms. There have been no previous diagnostic tests. There have been no previous evaluations. There has been no previous physical therapy. There has been no previous neck surgery. Previous medications have included anti-inflammatory medication (ibuprofen). 12-17-2017 Unclassified (20 sources) tailbone pain - present for 3 months, feels it on the inside but is not visible on the outside, pain is at the base of the tailbone and has worsened recently , but has not gotten larger. She denies trauma/fall...denies drainage from area 09-11-2017 Unclassified (20 sources) Back pain - The onset of the back pain has been sudden and has been occurring in a persistent pattern for 1 day. The course has been constant. The pain is characterized as a dull ache. The pain is located in the lower back and does not radiate. There are no precipitating factors. The symptoms are relieved by nothing (has used tylenol and ibuprofen). There has been no associated abdominal pain, dysuria or fever. Note for Back pain: Recently had gastroenteritis which is improving. Across entire low back.Pain increases with movement.No radiation.No numbness/tingling. 07-30-2017 Unclassified (19 sources) Follow up consultation - The patient is here to follow-up after Emergency Room/Urgent Care on : (07/23/2017). Current symptoms include diarrhea, dizziness. Note for Consultation follow-up: patient went to ER for vomiting and diarrhea but had a syncopal episode while there, pt states that at one point her BP was extremely low. She received 3 L of fluid and sent home dx:syncope secondary to dehydration--afebrile Continues with diarrhea, but vomiting has resolved 07-24-2017 Unclassified (20 sources) [ADDITIONAL REASON] Transition into care - The patient is transitioning into care from an emergency room and a summary of care was reviewed. 07-24-2017 Unclassified (20 sources) Cold Symptoms - Symptoms include nasal congestion, runny nose, purulent discharge, ear fullness, sore throat, scratchy throat, dry cough, productive cough, wheezing, fever, chills and general malaise, but do not include sneezing or ear pain. The onset was sudden 4 day(s) ago. The symptoms occur constantly. The patient describes this as moderate in severity and worsening. Current treatment includes non-prescription cold medication (dayquil & nyquil). Risk factors include smoking. The patient has not been exposed to an individual with a cough or an individual with similar symptoms. Patient denies history of seasonal allergies, recurrent sinusitis or asthma. 06-19-2017 Unclassified (20 sources) UTI - Symptoms include dysuria, urinary frequency, hematuria, malodorous urine, abdominal pain and back pain. The pain is located in the suprapubic area. There is no radiation. The patient describes the pain as burning and colicky (cramping started today). Onset was gradual 2 day(s) ago. There is no known event that preceded symptom onset. The patient describes this as moderate in severity and worsening. Associated symptoms do not include fever, chills, nausea, vomiting, urethral discharge or vaginal discharge. Risk factors do not include current or diaphragm use. Note for UTI: Has not taken anything for symptoms. 11-07-2016 Unclassified (20 sources) threatened - lmp 07/23/2016, started bleeding sunday, went to er, bloodwork showed , no u/s done/ 08-30-2016 Unclassified (20 sources) Follow up consultation - The patient is here to follow-up after Emergency Room/Urgent Care on : (04/08/16). Current symptoms include chest pain (Pt. continues with left chest discomfort radiating into abdomen with palpatino of the central sternum. Ibuprofen is ineffective. Percocet helps at times, but makes her sleepy. Notes that deep breaths, movement, and plapation increase her pain. denies fever, SOB, diaphoresis...). Note for Consultation follow-up: EKG and CXR were negative in ER; patient declines IVs and Labs in the ER 04-10-2016 Unclassified (20 sources) Headache - The onset of the headache has been sudden and has been occurring in a persistent pattern for hours (started at 3am and hasn't let up. At 4am she took ibuprofen 800mg without improvement.). The course has been constant. The headache is characterized as severe and pounding. The headache is experienced upon awakening and any time of the day (no diurnal variation). The headache is described as being located in the entire head. The symptoms are aggravated by noise and bright light. The symptoms have been associated with nausea and vomiting, while the symptoms have not been associated with migraine in the past or sore throat. Note for Headache: Pain is 8/10. Currently on menses. No family history of migraines. No recent cold symptoms. Headache is in entire head but is moving behind eyes. 10-27-2015 Unclassified (20 sources) Cold Symptoms - Symptoms include nasal congestion, runny nose, ear pain (bilateral), sore throat and facial pain (pressure), but do not include ear fullness, hoarseness, dry cough, productive cough, fever, chills, general malaise or headache. The onset was sudden 1 day(s) ago (started last evening.). The symptoms occur constantly. The patient describes this as mild and worsening. The patient is not currently being treated for this problem. 09-27-2015 Unclassified (20 sources) Follow up consultation - The patient is here to follow-up after Emergency Room/Urgent Care on : (04-12-15). Follow up visit with no current symptoms. Note for Consultation follow-up: Pt was in the ER for abd pain. Was told it was likely an ovarian cyst since this has happened 2 months back to back.... Pain has resolved. 04-15-2015 Unclassified (20 sources) Cold Symptoms - Symptoms include nasal congestion, runny nose, ear pain, ear fullness, dry cough, productive cough, fever (upset stomach x one week, vomited this am, diarrhea) and general malaise, but do not include sneezing, sore throat or wheezing. The onset was gradual 1 week(s) ago. The symptoms occur frequently. The patient describes this as moderate in severity and unchanged. The patient is not currently being treated for this problem. The patient has not been exposed to an individual with similar symptoms. Patient denies history of seasonal allergies, recurrent sinusitis, recurrent strep pharyngitis, asthma, tonsillectomy or recurrent ear infections. 09-29-2014 Unclassified (20 sources) Cold Symptoms - Symptoms include ear pain and sore throat, but do not include sneezing, nasal congestion, runny nose, dry cough, wheezing, fever, general malaise, headache or facial pain. The onset was sudden 1 day(s) ago. The symptoms occur frequently. The patient describes this as mild and worsening. The patient is not currently being treated for this problem. Risk factors include smoking. The patient has not been exposed to an individual with strep. Patient denies history of seasonal allergies, recurrent sinusitis, recurrent strep pharyngitis, asthma, tonsillectomy or recurrent ear infections. 09-08-2014 Unclassified (20 sources) Cold Symptoms - Symptoms include sneezing, nasal congestion, runny nose, purulent discharge and scratchy throat, but do not include ear pain, ear fullness, dry cough, productive cough, fever, headache or facial pain. The onset was gradual 10 day(s) ago. The symptoms occur constantly. The patient describes this as moderate in severity and worsening. The patient is not currently being treated for this problem. Risk factors include smoking. The patient has not been exposed to an individual with similar symptoms. Patient denies history of seasonal allergies. 06-16-2014 Unclassified (20 sources) UTI - Symptoms include dysuria, urinary frequency, urinary urgency and back pain. The pain is located in the back. There is no radiation. The patient describes the pain as aching. Onset was sudden 1 week(s) ago. The symptoms occur constantly. The patient describes this as moderate in severity and unchanged. Symptoms are not relieved by cranberry juice. Associated symptoms include vomiting, but do not include fever or chills. Note for UTI: No frequent UTIs. 05-13-2014 Unclassified (20 sources) possible retained condom - partner was wearing a condom last night with intercourse. However, he was unable to find the condom when they were done. She does not believe it is still within her, however partner is conviced that it is. Denies pain, foul odor, discharge 03-25-2014 Unclassified (20 sources) Follow up consultation - The patient is here to follow-up after Emergency Room/Urgent Care on : (03/08/14). Current symptoms include decreased ROM and joint injury. There is no family history of other condition(s). Note for Consultation follow-up: Pt saw [facility] 11/25/13 with c/o right knee pain and an MRI was done at the time. Pt was to see an orthopedic Dr, but was unable to get off of work for an appt. Pt was wrestling with brother this weekend and heard her knee pop and c/o pain and swelling to area. Knee was wrapped in ER but nothing further was done. Pt. notes that her boss is very upset with her taking off of work, but she is going to take care of her knee this time and do whatever it takes. 03-09-2014 Unclassified (17 sources) Rash - The onset of the rash has been acute and has been occurring in a persistent pattern for 5 hours. The course has been increasing. The rash is characterized as red. The rash was first seen on the trunk (Chest). It spread to the trunk (abdomen). There has been associated itching. 01-22-2014 Unclassified (17 sources) [ADDITIONAL REASON] Eye Symptoms - The onset of the eye symptoms has been acute and has been occurring in an increasing pattern for 1 day. The course has been increasing. The eye symptoms are described as moderate and involve the left eye. The symptoms are described as pain, itching and drainage. There has been associated watery eyes. 01-22-2014 Unclassified (20 sources) Knee pain - The onset of the knee pain has been sudden following an incident not at work and has been occurring in a persistent pattern for 2 months. The course has been worsening. The knee pain is moderate. Note for Knee pain: she had an MRI of the right knee which was normal and then was referred for Physical Therapy, she did this for 6 weeks but the last week of PT her sx became worse. 01-13-2014 Unclassified (18 sources) Follow up consultation - The patient is here to follow-up after Emergency Room/Urgent Care on : (11/19/13). Current symptoms include other (knee pain). Note for Consultation follow-up: playing Wii she twisted her right knee, she is feeling crackles and Pops in that knee, xray did not show any fractures. She continues to be unable to bear weight, remains in knee immobilizer. SHe continues to use ice and ibuprofen. ER felt that a tear was possible and she states since it has not started to feel better in this past week, she would like to proceed with additional testing. pain is present down the entire front of the right knee; she states that pain is present all of the time, and there is giving way of the knee when she tries to bear weight..... 11-25-2013 Unclassified (18 sources) [ADDITIONAL REASON] Transition into care - The patient is transitioning into care from an emergency room . 11-25-2013 Unclassified (20 sources) Cold Symptoms - Symptoms include runny nose, non-purulent sputum, ear pain (bilateral), sore throat and general malaise, but do not include sneezing, nasal congestion, dry cough, productive cough, fever or headache. The onset was sudden 3 hour(s) ago. The symptoms occur constantly. The patient describes this as mild and unchanged. The patient is not currently being treated for this problem. Risk factors include smoking. The patient has not been exposed to an individual with an upper respiratory infection or an individual with strep. Patient denies history of seasonal allergies, recurrent sinusitis, recurrent strep pharyngitis, asthma, tonsillectomy or recurrent ear infections. Note for Upper respiratory infection: she awoke with sypmtoms this morning 10-14-2013 Unclassified (10 sources) UTI - Symptoms include dysuria, urinary frequency, urinary urgency, dark urine, abdominal pain (lower) and back pain, but do not include hematuria, malodorous urine or flank pain. The pain is located in the suprapubic area, in the back and in the left lumbar area. There is no radiation. The patient describes the pain as burning. Onset was sudden 1 week(s) ago. There is no known event that preceded symptom onset. The symptoms occur constantly. Symptoms are relieved by cranberry juice (helps only temporarily). Associated symptoms do not include fever, nausea or vaginal discharge. Note for UTI: Patient has a history of frequent UTIs 03-20-2022 Unclassified (10 sources) [ADDITIONAL REASON] Rash - The onset of the rash has been sudden and has been occurring in a persistent pattern for 3 days. The course has been increasing. The rash is characterized as red and raised above the skin. The rash was first seen on the lower extremity (both legs). It spread to the lower extremity (Has been spreading up both legs, but she also feels itchy all over.). There has been associated itching and erythema, while there has been no associated pain, drainage or edema. There has been associated itching, while there has been no chills, fever, malaise or pain. Note for Rash: Patient was working outside before the rash started 03-20-2022 Unclassified (12 sources) Transition into care - The patient is transitioning into care from an emergency room and a summary of care was not provided. 11-18-2019 Unclassified (12 sources) [ADDITIONAL REASON] Follow up consultation - The patient is here to follow-up after Emergency Room/Urgent Care on : (11/15/2019). Current symptoms include cough (chest hurts with coughing and shortness of breath). Note for Consultation follow-up: treated with injections-rocephin and augmentin-pneumonia; negative for flu; cough is worse at night when fever returns... 11-18-2019 Unclassified (13 sources) Eye Symptoms - The onset of the eye symptoms has been acute and has been occurring in an increasing pattern for 1 day. The course has been increasing. The eye symptoms are described as moderate and involve the left eye. The symptoms are described as pain, itching and drainage. There has been associated watery eyes. 01-22-2014 Unclassified (13 sources) [ADDITIONAL REASON] Rash - The onset of the rash has been acute and has been occurring in a persistent pattern for 5 hours. The course has been increasing. The rash is characterized as red. The rash was first seen on the trunk (Chest). It spread to the trunk (abdomen). There has been associated itching. 01-22-2014 Unclassified (12 sources) Transition into care - The patient is transitioning into care from an emergency room . 11-25-2013 Unclassified (12 sources) [ADDITIONAL REASON] Follow up consultation - The patient is here to follow-up after Emergency Room/Urgent Care on : (11/19/13). Current symptoms include other (knee pain). Note for Consultation follow-up: playing Wii she twisted her right knee, she is feeling crackles and Pops in that knee, xray did not show any fractures. She continues to be unable to bear weight, remains in knee immobilizer. SHe continues to use ice and ibuprofen. ER felt that a tear was possible and she states since it has not started to feel better in this past week, she would like to proceed with additional testing. pain is present down the entire front of the right knee; she states that pain is present all of the time, and there is giving way of the knee when she tries to bear weight..... 11-25-2013 Unclassified (12 sources) Wrist Pain - The pain is in the left wrist. The onset of the wrist pain has been gradual and has been occurring in a persistent pattern for months. The course has been worsening. The wrist pain is characterized as a moderate to severe burning sensation. Aggravating factors include any movement. There are no relieving factors. Associated features include painful ROM, but do not include joint swelling, instability, popping/crepitus, warmth, erythema or fever. 04-04-2018 Unclassified (12 sources) [ADDITIONAL REASON] UTI - Symptoms include dysuria, urinary frequency, urinary urgency, dark urine, abdominal pain and back pain, but do not include hematuria or flank pain. The pain is located in the suprapubic area and in the back. The pain radiates to the back. The patient describes the pain as burning. Onset was gradual 1 week(s) ago. The symptoms occur frequently. The patient describes this as moderate in severity and worsening. Symptoms are relieved by cranberry juice. Associated symptoms do not include fever, chills, nausea, vomiting or urinary incontinence. 04-04-2018 Unclassified (11 sources) [ADDITIONAL REASON] Follow up consultation - The patient is here to follow-up after Emergency Room/Urgent Care on : (07/23/2017). Current symptoms include diarrhea, dizziness. Note for Consultation follow-up: patient went to ER for vomiting and diarrhea but had a syncopal episode while there, pt states that at one point her BP was extremely low. She received 3 L of fluid and sent home dx:syncope secondary to dehydration--afebrile Continues with diarrhea, but vomiting has resolved 07-24-2017 Results Test Name Value Interpretation Reference Range Facility Orthopedic Visit Reporton Orthopedic Visit Report [facility] [address] [place] [address] OFFICE VISIT Date of Service: 05/14/25 MR#: [id number] Acct: [id number] Name: CANDIE ALCARAZ Rep #: [id number] : 1990 Provider: Dr. Tramaine rivera MD Age/Sex: 34/F Location[place] [facility] Status: Signed Intake Vital Signs 02/08/21 13:20 05/14/25 12:57 Height 5 ft 3 in 5 ft 3 in Weight: 147 lb 2 oz BMI 26.0 Intake Visit Reasons: RIGHT SHOULDER Chief Complaint: Right shoulder pain Accompanied by: Self Is patient in pain?: Yes Pain scale (1-10): 8 Allergies No Known Allergies Allergy (Verified 05/14/25 13:00) Medications ???Medication ???Instructions ???Recorded ???Confirmed ???Type acetaminophen-pamabrom 500 mg-25 1 tab PO Q6H PRN 05/14/25 05/14/25 History mg tablet (Midol) Have you fallen in the past year?: No PFSH Medical History (Updated 05/14/25 @ 13:32 by Tramaine Fuentes MD) Right rotator cuff tear Right shoulder pain Surgical History Surgical history of tubal ligation H/O knee surgery Social History Smoking Status: Light Smoker (<10/day) alcohol intake: never substance use type: does not use caffeine: Yes frequency: 1-2 times per week seatbelt use: never do you feel safe at home: Yes additional social history: Frank- ([facility]) Patient works at [employer] HPI RIGHT SHOULDER Details: This documentation accurately reflects the service provided and the decisions made by me, Dr. Tramaine Fuentes MD 05/14/25 1053. Part of today???s visit was documented by [ ], acting as scribe. CANDIE ALCARAZ is a 34 year old F here today for R shoulder pain, NEED XR. work at [employer]. RHD. anterior / lat pain. loses strength. no numbness. going down the arm. 1 year hx. no injury. going to the back. did 6 weeks of PT at [place] and for the neck as well. POS night time symptoms, never had it before. no surgery on the shoulder. 1/2 PPD smoker. Supplemental Info R shoulder xr 4 view - nil acute. normal GH joint space. MRI of the right shoulder without contrast on 12/04/2024 radiologist conclusion 1. Articular surface tear of the supraspinatus tendon. 2. Interstitial tear of the supraspinatus muscle at the myotendinous junction. 3. 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 I independently reviewed the imaging. Concur with radiologist report. Coding Level of Care Code Off vis,new,level 4 Diagnoses Right shoulder pain M25.511 Right rotator cuff tear M75.101 Assessment and Plan Assessment and Plan (1) Right shoulder pain: Status: Acute Plan: CANDIE ALCARAZ is a 34 year old F here today for R shoulder pain, patient has a small partial articular surface tear of the supraspinatus tendon. This is likely causing her shoulder pain. The patient failed 3 months of physical therapy. Patient is not interested in further conservative management including declining cortisone injections and other continue nonoperative management. Surgery would be in the form of right shoulder arthroscopy, subacromial decompression, rotator cuff repair. This would likely do a takedown and the repair given the articular surface tear has retracted somewhat significantly and would be quite difficult to capture using trans tendon repair techniques. Patient understands is a half pack-a-day smoker that can increase the chance of complications as well as decrease the chance of healing of this tear. Patient understands we will try to quit or cut back and wishes to proceed with the surgery as booked. Pros and cons risks and benefits were discussed with the patient including but not limited to infection, pain, stiffness, bleeding, damage to surrounding structures, neurovascular injury, recu rrence or retear, failure or wear of hardware or fixation, instability, fracture, deep vein thrombosis and pulmonary embolism, anesthetic risks, , patient dissatisfaction, need for further surgery and other risks. Patient understood and wished to proceed with surgery, and signed the informed consent documentation. Patient counselled on non-operative and operative means of treating shoulder pain. Conservative options include but not limited to: 1. Rest and Activity Modification: Giving your shoulder time to heal by avoiding movements that cause pain can help. This may involve limiting overhead activities or heavy lifting. 2. Physical Therapy: A physical therapist can guide you through exercises that strengthen the muscles around the shoulder, improve flexibility, and reduce strain on the rotator cuff tendon. 3. Ice and Heat Therapy: Applying ice to the sh (more content not included)... Normal [facility] Shoulder min 2 Viewson 05-14 Shoulder min 2 Views [facility] [address] [place] [address] Shoulder min 2 Views MR#: [id number] Acct: [id number] Name: JACQUICANDIE MICHAEL Nikko Rep #: [id number] : 1990 F 34 From: Sp Chin MD PCP: Rosemarie Olson PA-C Status: DEP AMB Study: Shoulder min 2 Views Date of Exam: 05/14/25 Exam# [id number] Ordering Dr: Tramaine Fuentes MD PROCEDURE: SHOULDER MIN 2 VIEWS 05/14/2025 REASON FOR EXAM: ONGOING PAIN, NKI TECHNIQUE: SHOULDER MIN 2 VIEWS COMPARISON: Right shoulder 09/20/2024. FINDINGS: There is no evidence of fracture or dislocation. There is no arthritis of the glenohumeral joint. There is mild arthritis of the acromioclavicular joint. The periarticular soft tissues are normal. RAD/Shoulder min 2 Views IMPRESSION: Normal right shoulder. Reading Location: [place] [address] CC: MIRA Olson; Dr. Tramaine Fuentes MD Down Filler: Signed Normal [facility] MR SHOULDER W/O RTon 025 MR SHOULDER W/O RT [address] [address] Patient: CANDIE ALACRAZ Phone#: : 1990 Age: 34 Gender: F Pt. Type: Out Account: [id number] Location: [facility] Ordering: JOYCE MONTOYA Exam Date: 12/04/2024/13:55 Family Phys: Charge Code: [id number] Physician: [place] Order #: [id number] Dose#: PROCEDURE: MRI SHOULDER RT WITHOUT CONTRAST COMPARISON: None. INDICATIONS: Right shoulder pain TECHNIQUE: A variety of imaging planes and parameters were utilized for visualization of suspected pathology. Images were performed without contrast. FINDINGS: ROTATOR CUFF REGION CUFF TENDONS: Articular surface tear and interstitial tear of the supraspinatus tendon myotendinous junction. Subscapularis tendon is thickened wavy suspicious for chronic injury. CUFF MUSCLES: Interstitial tear of the supraspinatus myotendinous junction. DELTOID: Normal. No significant atrophy or tear. LONG BICEPS TENDON: Normal. No abnormal signal, attrition, or tear. LABRUM/BICEPS ANCHOR SUPERIOR: There is tear of the superior labrum. ANTERIOR/INFERIOR: There is tear of the anterior labrum. POSTERIOR: Normal. No posterior labrum abnormality. CAPSULE ANTERIOR/INFERIOR: The middle glenohumeral ligament is thickened and wavy consistent with chronic tear. POSTERIOR: Normal. No visible capsular laxity or thickening. AC JOINT REGION AC JOINT: Mild degenerative changes present at the acromioclavicular joint. AC LIGAMENTS: Normal acromioclavicular ligament. CC LIGAMENTS: Normal coracoclavicular ligaments. ACROMION: Normal horizontal (Type I) configuration. SUBACROMIAL BURSA: Normal. No significant effusion. HYALINE CARTILAGE: Normal. No visible cartilage narrowing or focal defect. OTHER BONES: There is mild superior subluxation at the glenohumeral joint. OTHER OBSERVATIONS: Negative. No other significant findings or glenohumeral effusion. CONCLUSION: 1. Articular surface tear of the supraspinatus tendon. 2. Interstitial tear of the supraspinatus muscle at the myotendinous junction. Continued Report - Page 2 of 2 Patient: CANDIE ALCARAZ Phone#: : 1990 Age: 34 Gender: F Pt. Type: Out Account: [id number] Location: 052 Ordering: JOYCE MONTOYA Exam Date: 12/04/2024/13:55 Family Phys: Charge Code: [id number] Physician: [place] Order #: [id number] Dose#: 3. 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 Dictated by: Sima Perez MD on 12/05/2024 at 16:54 Approved by: Sima Perez MD on 12/05/2024 at 17:06 Normal [facility] URINE CULTURE [CCL]on 2023 Bacteria identified Cx Nom (U) URCUL See Results Below See Below CULTURE, URINE KLEBSIELLA (ENTEROBACTER) AEROGENES >=100,000 CFU/ml Klebsiella (enterobacter) aerogenes ORGANISM: KLEBSIELLA (ENTEROBACTER) AEROGENES ANTIBIOTIC DANIELA DILUTN DANIELA INTERP Ampicillin Resistant Cefepime <=1 Susceptible Ertapenem <=0.5 Susceptible Meropenem <=0.25 Susceptible Ampicillin/Sulbact Resistant Piperacillin/Tazobac <=4 Susceptible Gentamicin <=1 Susceptible Tobramycin <=1 Susceptible Trimeth sulfameth <=20 Susceptible Ciprofloxacin <=0.25 Susceptible Nitrofurantoin 64 Intermediate This test was developed and its performance characteristics determined by the [facility]'s [facility] [place] ([facility]). It has not been cleared or approved by the FDA. [facility] is regulated under CLIA as qualified to perform high-complexity testing. This test is used for clinical purposes. It should not be regarded as investigational or for research. SOURCE: Urine (Nonspecific) [facility] [employer] [address] [place] [address] Tanvir Cain III, M.D. [id number] SEND TO IC YES Normal [facility] Comment on above: Performed By: #### 2 [id number] ####[facility],[address] [place] [address] CHEST (PE PROTOCOL)on CT CHEST (PE PROTOCOL) [address] [address] Patient: CANDIE ALCARAZ Phone#: : 1990 Age: 33 Gender: F Pt. Type: ER Account: [id number] Location: [facility] Ordering: DEON JUAREZ Exam Date: 09/21/2024/0:14 Family Phys: JOYCE MONTOYA Charge Code: [id number] Physician: [place] Order #: [id number] Dose#: 3.7 mGy PROCEDURE: CT CHEST WITH CONTRAST FOR PE COMPARISON: None. INDICATIONS: Chest pain. TECHNIQUE: After obtaining the patient's consent, CT images were obtained with non-ionic intravenous contrast material. Multi-planar images were created to optimize visualization of vascular anatomy with MPR/MIPS and 3D imaging. All CT scans at this facility use dose modulation, iterative reconstruction, and/or weight based dosing when appropriate to reduce radiation dose to as low as reasonably achievable. IV CONTRAST: Omnipaque 350,80ml TOTAL DOSE: 3.7 CTDIvol(mGy) FINDINGS: VASCULATURE: Normal. No visible pulmonary arterial thrombus or attenuation. AORTA: Normal. No aneurysm or dissection. LUNGS: Normal. No visible pulmonary disease. MARIA LUISA: Normal. No mass or adenopathy. MEDIASTINUM: Normal. No mass or adenopathy. CARDIAC: Normal. No enlargement, pericardial thickening, or significant calcification. PLEURA: Normal. No mass or effusion. CHEST WALL: Normal. No mass or axillary adenopathy. LIMITED ABDOMEN: Normal. Limited images of the upper abdomen are unremarkable. BONES: Normal. No bony lesion or fracture. OTHER: Negative. CONCLUSION: 1. There is no evidence of pulmonary embolus. 2. There is no evidence of acute pulmonary abnormality. Dictated by: Sima Perez MD on 09/21/2024 at 20:59 Continued Report - Page 2 of 2 Patient: CANDIE ALCARAZ Phone#: : 1990 Age: 33 Gender: F Pt. Type: ER Account: [id number] Location: 052 Ordering: DEON JUAREZ Exam Date: 09/21/2024/0:14 Family Phys: JOYCE MONTOYA Charge Code: [id number] Physician: [place] Order #: [id number] Dose#: 3.7 mGy Approved by: Sima Perez MD on 09/21/2024 at 21:03 Normal [facility] ED MED ADMINISTRATION DETAIL on 09-21-2024 ED MED ADMINISTRATION DETAIL Lead C Developer Medication Administration Record [address] [address] [id number] 09/20/2024 Patient: CANDIE ALCARAZ Sex: Female : 1990 Age: 33y MEASUREMENTS: Wt: 72.6 kg ALLERGIES: No known drug allergies Medication Ordered Medication Administration Date/Time IV NS 0.9 % 1000 21:08 09/20 IV NS 0.9 % 1000 mL started in bag#1 1000 mL at Started mL at 999 mL/hr 999 mL/hr via Site# 1. - 21:09 Irene Campbell R.N. 21:08 09/20/2024 (NOW x1) Irene Campbell, 01:00 09/21 Medication Discontinued: bag #1 infused upon R.N. discharge. Total amount infused: 1000 mL. IV patency established. Stopped IV site checked: no pain, redness, or swelling. IV flushed thoroughly 01:00 09/21/2024 post-medication administration. - 01:53 Nancy Domingo R.N. Scanned KetorOLAC 22:49 09/20 KetorOLAC (Toradol) IVP 30 mg given via Site# 1. Given (Toradol) IVP 30 mg Allergies verified and confirmed 5 rights. IV patency established. IV 22:49 09/20/2024 (NOW x1) site checked: no pain, redness, or swelling. IV flushed thoroughly Bry Lopez R.N. pre-medication administration. IVP given by cdw. Information Scanned reviewed with patient including reason for taking this medication. Verbalizes understanding. (8 right shoulder pain). - 22:52 Bry Lopez R.N. 23:50 09/20 Medication Response: No adverse reaction. Symptoms are the same. The patient feels the same. ED physician notified. - 01:52 Irene Campbell R.N. 1 of 2 Lead C Developer Medication Ordered Medication Administration Date/Time cefTRIAXone 01:03 09/21 cefTRIAXone (Rocephin) IVPB 1gm/50ml NS 1 g Started (Rocephin) IVPB started at 100 mL/hr diluted in sodium chloride IVPB 0.9 % 01:03 09/21/2024 1gm/50ml NS 1 g Minibag+ 50 mL via Site# 1. Allergies verified and confirmed 5 Irene Campbell, diluted in sodium rights. IV patency established. IV site checked: no pain, redness, or R.N. chloride IVPB 0.9 % swelling. IV flushed thoroughly pre-medication administration. Stopped Minibag+ 50 mL at Information reviewed with patient including sedative warning. 01:44 09/21/2024 100 mL/hr (NOW x1) Verbalizes understanding. - 01:03 Nancy Domingo R.N. 01:44 09/21 Medication Discontinued: IV infused upon discharge. Scanned Total amount infused: 50 mL. IV patency established. IV site checked: no pain, redness, or swelling. IV flushed thoroughly post-medication administration. - 01:54 Irene Campbell R.N. HYDROmorphone 01:00 09/21 HYDROmorphone (Dilaudid) IVP 1 mg given via Site# Given (Dilaudid) IVP 1 mg 1. Allergies verified and confirmed 5 rights. IV patency established. 01:00 09/21/2024 (NOW x1, HIGH IV site checked: no pain, redness, or swelling. IV flushed thoroughly CLAYTON Domingo pre-medication administration. IVP given by nurse. Information R.N. MEDICATION) reviewed with patient including reason for taking this medication, Scanned signs of allergic reaction and precautions. Verbalizes understanding. - 01:00 Irene Campbell R.N. 01:44 09/21 Medication Response: Pain is improving. Symptoms have improved. The patient feels better. - 01:54 Irene Campbell R.N. Zofran IVP 4 mg 00:58 09/21 Zofran IVP 4 mg given via Site# 1. Allergies verified Given (NOW x1) and confirmed 5 rights. IV patency established. IV site checked: no 00:58 09/21/2024 pain, redness, or swelling. IV flushed thoroughly pre-medication rossy Domingo. IVP given by nurse. Information reviewed with R.Hayden. patient including reason for taking this medication, signs of allergic Scanned reaction and precautions. Verbalizes understanding. - 00:58 Irene Campbell R.N. 2 of 2 [facility] ED NURSES CLINICAL NOTEon ED NURSES CLINICAL NOTE Nurse Narrative Nurse Clinical [address] [place] [address] [phone] 09/20/2024 Patient: CANDIE ALCARAZ Sex: Female : 1990 Age: 33y Disposition: Discharge to Home Disposition Decision Time: :09/21/2024 Departure Time: 01:50 09/21/2024 TRIAGE Arrived by private vehicle. Historian: patient. Triage time: 19:25 09/20/2024. Acuity: LEVEL 3. Chief Complaint: RIGHT UPPER EXTREMITY PAIN. Onset. (2 months). -- 19:09/20/24 CASSY Hinds R.N. 19:09/20/24. BP: 141/90 MAP: 107. HR: 84. RR: 18. O2 saturation: 98% Temperature: 98.2 F. Pain level now 10/10. -- 19:09/20/24 CASSY Hinds R.N. 19:09/20/24. SEPSIS SCREEN: NEGATIVE. SIRS criteria negative. No possible sources of infection. -- :09/20/24 CASSY Hinds R.N. Measurements: 19:09/20/24 Wt: 72.6 kg -- :09/20/24 CASSY Hinds R.N. Medications: ondansetron HCl 4 mg tablet: 1 tablet every six to eight hours . -- :09/20/24 CASSY Hinds R.N. 1 of 4 Nurse Narrative Allergies: no known drug allergies -- 19:09/20/24 CASSY Hinds R.N. Problems: no known problem -- :09/20/24 CASSY Hinds R.N. ADDITIONAL SURGERIES: Knee Surgery. left -- :09/20/24 CASSY Hinds R.N. Dilatation Curettage -- 09/20/24 CASSY Hinds R.N. Tubal Ligation -- :09/20/24 CASSY Hinds R.N. History 19:09/20/24. SOCIAL HX: Never smoker. No alcohol use or drug use. The patient has not traveled outside the [place] Infectious disease exposure: No infectious disease exposure. ABUSE ASSESSMENT: The patient answered yes to the question(s) Do you feel safe in your home? and no to the question(s) Are you afraid to go home?. FALL RISK ASSESSMENT: Fall risk assessment completed. No risk factors identified. -- 09/20/24 CASSY Hinds R.N. 19:09/20/24. SELF HARM ASSESSMENT: Self harm assessment was performed. The patient answered no to the question(s) Have you recently felt down, depressed, or hopeless? and Do you have thoughts of harming or killing yourself?. -- 19:09/20/24 CASSY Hinds R.N. Interventions 19:09/20/24. Advanced care plan discussed with patient. Patient does not have advanced directive. -- 09/20/24 CASSY Hinds R.N. PHYSICAL ASSESSMENT 2 of 4 Nurse Narrative 19:45 09/20/24. Ambulatory to room. GENERAL / NEURO / PSYCH: Oriented X 4. Alert. Appears in no acute distress. The patient has numbness. EXTREMITIES: Right scapula area: tenderness. Limited ROM in the right arm secondary to pain (diminished abduction). Limited ROM present. Neuro-vascular status intact to the extremity. No upper extremity edema. SKIN: Skin intact. Skin is warm and dry. -- 19:45 09/20/24 CASSY Campbell R.N. NURSING PROGRESS NOTES 20:44 09/20/24. Site #1 started via IV in the right antecubital space with an 18g angiocath with aseptic technique and good blood return; 1 attempt. Blood drawn: rainbow set tube(s). Saline lock flushed with 5 mL saline. -- 21:09 09/20/24 CASSY Campbell R.N. 21:08 09/20/24. IV NS 0.9 % 1000 mL started in bag#1 1000 mL at 999 mL/hr via Site# 1. -- 21:09 09/20/24 CASSY Campbell R.N. 22:38 09/20/24. BP: 119/72 MAP: 87 mmHg. HR: 61 bpm. -- 22:59 09/20/24 CASSY Lopez R.N. 22:42 09/20/24. HR: 62 bpm. O2 saturation: 97%. -- 22:59 09/20/24 CASSY Lopez R.N. 22:49 09/20/24. KetorOLAC (Toradol) IVP 30 mg given via Site# 1. Allergies verified and confirmed 5 rights. IV patency established. IV site checked: no pain, redness, or swelling. IV flushed thoroughly pre-medication administration. IVP given by cdw. Information reviewed with patient including reason for taking this medication. Verbalizes understanding. (8/10 right shoulder pain). -- 22:52 09/20/24 CASSY Lopez R.N. 22:54 09/20/24. The patient is calm and resting quietly. GENERAL / NEURO / PSYCH: Alert. Oriented X 4. RESPIRATORY: No respiratory distress. EXTREMITIES: Neuro-vascular status intact to the extremity. SKIN: Skin is warm. Family at bedside. -- 22:59 09/20/24 CASSY Lopez R.N. 22:55 09/20/24. BP: 126/78 MAP: 88 mmHg. HR: 55 bpm. -- 22:59 09/20/24 CASSY Lopez R.N. 22:57 09/20/24. HR: 69 bpm. O2 saturation: 93%. -- 22:59 09/20/24 CASSY Lopez R.N. 00:58 09/21/24. Zofran IVP 4 mg given via Site# 1. Allergies verified and confirmed 5 rights. IV patency established. IV site checked: no pain, redness, or swelling. IV flushed thoroughly pre-medication administration. IVP given by nurse. Information reviewed with patient including reason for taking this medication, signs of allergic reaction and precautions. Verbalizes understanding. -- 00:58 09/21/24 CASSY Campbell R.N. (more content not included)... [facility] ED ORDER SHEET ([facility] ONLY)on 09-21-2024 ED ORDER SHEET (CPOE ONLY) Order Sheet Order Sheet [address] [address] [id number] 09/20/2024 Patient: CANDIE ALCARAZ Sex: Female : 1990 Age: 33y MEASUREMENTS: Wt: 72.6 kg ALLERGIES: No known drug allergies MEDICATION/IV/DRIP/FLUI D ORDERS Order Description Priority Entered Acknowledged Completed IV NS 0.9 %1000 mL at 999 20:34 09/20/2024 20:49 21:09 mL/hr (NOW x1) Deon Juarez D.O. 09/20/2024 09/20/2024 Nancy Chandra R.N. Ondansetron ODT PO2 mg 20:57 09/20/2024 Cancelled: Wrong Order (NOW x1) Deon Juarez D.O. 20:57 EST Deon Juarez D.O. KetorOLAC (Toradol) IVP30 mg 22:42 09/20/2024 22:47 22:52 (NOW x1) Deon Juarez D.O. 09/20/2024 09/20/2024 Bry Gan R.N. R.N. cefTRIAXone (Rocephin) IVPB 00:09 09/21/2024 00:33 01:03 1gm/50ml NS1 g diluted in Deon Juarez D.O. 09/21/2024 09/21/2024 sodium chloride IVPB 0.9 % Irene Bonilla Minibag+ 50 mL at 100 mL/hr Nancy Campbell R.N. (NOW x1) HYDROmorphone (Dilaudid) 00:52 09/21/2024 00:52 01:00 1 of 4 Order Sheet IVP1 mg (NOW x1, HIGH ALERT Deon Juarez D.O. 09/21/2024 09/21/2024 MEDICATION) Nancy Chandra R.N. Zofran IVP4 mg (NOW x1) 00:52 09/21/2024 00:52 00:58 Deon Juarez D.O. 09/21/2024 09/21/2024 Nancy Chandra R.N. LAB ORDERS Order Description Priority Entered Acknowledged Collected Completed CBC w Diff Stat Stat 20:29 09/20/2024 20:29 09/20/2024 20:49 09/20/2024 Florentino Hackett R.N. [place], R.N. Troponin-I Stat Stat 20:29 09/20/2024 20:29 09/20/2024 20:49 09/20/2024 Florentino Hackett R.N. [place], R.N. EKG - ED Stat Stat 20:29 09/20/2024 20:29 09/20/2024 20:49 09/20/2024 Florentino Hackett R.N. [place], R.N. CMP Stat Stat 20:29 09/20/2024 20:29 09/20/2024 20:49 09/20/2024 Florentino Hackett R.N. [place], R.N. HCG, Qual Serum Stat Stat 20:29 09/20/2024 20:29 09/20/2024 20:49 09/20/2024 Florentino Hackett R.N. [place], R.N. CRP Stat Stat 20:31 09/20/2024 20:49 09/20/2024 Florentino Hackett R.N. Lipase Stat Stat 20:31 09/20/2024 20:49 09/20/2024 20:49 09/20/2024 Florentino Hackett R.N. [place], R.N. 2 of 4 Order Sheet Urinalysis Stat Stat 20:34 09/20/2024 20:49 09/20/2024 21:57 09/20/2024 Florentino Hackett R.N. [place], R.N. Urine Culture [CCL] Stat Stat 00:09 09/21/2024 00:32 09/21/2024 00:50 09/21/2024 Florentino Hackett R.N. [place], R.N. DIAGNOSTIC STUDY ORDERS Order Description Priority Entered Acknowledged Completed CT Chest PE Study Stat Stat 20:29 09/20/2024 20:29 00:50 Deon Juarez D.O. 09/20/2024 09/21/2024 Nancy Chandra R.N. Order Comments: 20:29 09/20/2024: Status: Not . Deon Juarez D.O. Reason for Study: Chest Pain Shoulder R Complete Stat Stat 20:30 09/20/2024 20:30 21:57 Deon Juarez D.O. 09/20/2024 09/20/2024 Nancy Chandra R.N. Reason for Study: Shoulder Pain STAFF ORDERS Order Description Priority Entered Acknowledged Collected Completed Oxygen titrate to 92% 20:29 09/20/2024 20:29 09/20/2024 20:49 09/20/2024 Florentino Hackett R.N. [place], R.N. [employer] 20:29 09/20/2024 20:29 09/20/2024 20:49 09/20/2024 Florentino Hackett R.N. [place], R.N. Vital signs every 15 20:29 09/20/2024 20:29 09/20/2024 20:49 09/20/2024 minutes Florentino Hackett 3 of 4 Order Sheet Nancy Campbell R.N. IV Saline Lock 20:29 09/20/2024 20:29 09/20/2024 20:49 09/20/2024 Florentino Hackett R.N. [place], R.N. [Electronically signed by Deon Juarez D.O. (09/21/2024 06:44 EST)] 4 of 4 [facility] ED PHYSICIAN CLINICAL REPORT on 09-21-2024 ED PHYSICIAN CLINICAL REPORT Narrative Physician Clinical Narrative [address] [address] [id number] 09/20/2024 Patient: CANDIE ALCARAZ Sex: Female : 1990 Age: 33y Disposition: Discharge to Home Disposition Decision Time: 01:21 09/21/2024 Departure Time: 01:50 09/21/2024 Measurements Wt: 72.6 kg Initial Vital Sign Measured Time BP MAP HR RR O2Sat ETCO2 Temp Pain GCS RTS 19:27 09/20/2024 141/90 107 84 18 98% 98.2 F 10 Time Seen: 19:32 09/20/2024. Arrived- By private vehicle. Historian- patient. HISTORY OF PRESENT ILLNESS Chief Complaint: UPPER EXTREMITY PAIN and ; ;(complaining of right shoulder pain ever since she had a tubal ligation 2 months ago. Denies any injury.). Severity is described as being moderate in degree. The quality is noted to be sharp. It is described as radiating to the right shoulder. This started 2 months ago. Modifying factors- worsened by movement. Made better by not moving. Symptoms located in the area of the right scapula. No chest pain, difficulty breathing, swelling, sensory loss or motor loss. No repetitive hand use at work. The patient has not had redness. Patient denies an injury. Similar symptoms previously. None. Recent medical care: The patient was seen recently by a health care provider. 1 of 12 Narrative REVIEW OF SYSTEMS EYES: No eye discomfort. : No difficulty with urination, urinary frequency or hematuria. NEUROLOGICAL: No headache. PSYCHIATRIC: No depression. THROAT: No sore throat. RESPIRATORY: No cough. SKIN: No skin rash. CONSTITUTIONAL: No fever or chills. MUSCULOSKELETAL: No neck pain. GI: No abdominal pain, nausea, vomiting or diarrhea. ENDO/HEME/LYMPH: No enlarged lymph nodes. Status: Not . PAST HISTORY See nurses notes. no known problem Surgeries: Dilatation Curettage Knee Surgery: Body Site left Tubal Ligation Medications: ondansetron HCl 4 mg tablet: 1 tablet every six to eight hours . Allergies: no known drug allergies SOCIAL HISTORY Never smoker. No alcohol use or drug use. ADDITIONAL NOTES The nursing notes have been reviewed. PHYSICAL EXAM Appearance: Alert. Oriented X3. No acute distress. Eyes: Pupils equal, round and reactive to light. ENT: Nose normal. Pharynx normal. 2 of 12 Narrative Neck: Normal inspection. Neck supple. CVS: Normal heart rate and rhythm. Heart sounds normal. Respiratory: No respiratory distress. Decreased air movement in the right lung base. No crackles or rhonchi. Abdomen: Soft and nontender. No organomegaly. Back: Soft tissue tenderness in the right upper thoracic paraspinous region. (no redness warmth or erythema. No crepitance.). Skin: Skin intact. Skin warm and dry. Extremities: Upper extremities normal to inspection. Upper extremities exhibit normal ROM. Upper extremities nontender. No upper extremity edema. Extremities otherwise negative. Neuro: Oriented X 3. No motor deficit. No sensory deficit. LABS, X-RAYS, AND EKG 12-LEAD EKG: EKG time: 20:46 09/20/2024. Normal sinus rhythm. Rate: 60. Normal P waves. Normal QRS complex. Normal axis. Normal ST and T waves. The study has been interpreted contemporaneously by me. Interpretation time: 20:47 09/20/2024. Chest CT: No acute disease. Laboratory Tests: C-REACTIVE PROTEIN Final AMI: 09/20/2024 20:50:00 EST MsgRcvd: 09/20/2024 21:43 EST Lab Test Result Reference Status Received Comments 09/20/2024 21:43 CRP <0.50 mg/dl 0.00 - 0.90 Final EST CBC + DIFF Final AMI: 09/20/2024 20:50:00 EST MsgRcvd: 09/20/2024 21:34 EST Lab Test Result Reference Status Received Comments 09/20/2024 21:34 CBC-COMPLETE CBC + DIFF Final EST BLOOD COUNT 3 of 12 Narrative 09/20/2024 21:34 WBC 7.6 x 10/UL 4.5 - 10.8 Final EST 4.07 x 10/UL 09/20/2024 21:34 RBC 4.10 - 5.30 Final Below low normal EST 09/20/2024 21:34 HEMOGLOBIN 13.2 g/dl 12.0 - 16.0 Final EST 09/20/2024 21:34 HEMATOCRIT 37.8 % 34.0 - 46.0 Final EST 09/20/2024 21:34 MCV 93 fl 80 - 99 Final EST 09/20/2024 21:34 MCH 32 pg 27 - 33 Final EST 09/20/2024 21:34 MCHC 35 X10 3 32 - 36 Final EST 09/20/2024 21:34 RDW/CV 12.7 % 12.0 - 15.6 Final EST 09/20/2024 21:34 PLATELET 312 x10/UL 150 - 450 Final EST 09/20/2024 21:34 AUTOMATED MPV 7.9 fl 6.6 - 10.5 Final EST DIFFERENTIAL 09/20/2024 21:34 NEUT % 50.5 % 46.0 - 76.0 Final EST 09/20/2024 21:34 LYMPH % 39.0 % 20.0 - 45.0 Final EST 09/20/2024 21:34 MONOS % 5.3 % 0.0 - 10.0 Final EST 09/20/2024 21:34 EO % 4.8 % 0.0 - 7.0 Final EST 4 of 12 Narrative 09/20/2024 21:34 BASO % 0.3 % 0.0 - 2.0 Final EST 2.94 x10/UL 09/20/2024 21:34 Lymph # 0.80 - 2.80 Final Above high normal EST 09/20/2024 21:34 Neut # 3.82 x10/UL 1.50 - 7.1 (more content not included)... [facility] ED SUPER BILLon 09-21-2024 ED SUPER BILL [place] [id number] [facility] [place] [address] [phone] 09/20/2024 Patient: CANDIE ALCARAZ Sex: Female : 1990 Age: 33y Item Facility Professional Category Description Code Code Quantity Fee Total Nurse/E/M EMERGENCY 148903 1 $0.00 $0.00 DEPARTMENT VISIT HIGH/URGENT SEVERITY (91607-38) Nurse/IV/IM/Infusions Drip/IVPB initial 230571 1 $0.00 $0.00 (31812) Nurse/IV/IM/Infusions Hydration 977378 4 $0.00 $0.00 additional hour (91111) Nurse/IV/IM/Infusions IVP additional 195922 3 $0.00 $0.00 push (63086) Grand Total $0.00 Providers Deon Juarez D.O. Chief Complaint 1 of 2 [facility] UPPER EXTREMITY PAIN and ; ;(complaining of right shoulder pain ever since she had a tubal ligation 2 months ago. Denies any injury.). Principal Diagnosis Acute urinary tract infection with cystitis. No hematuria. Not associated with indwelling catheter. (right shoulder pain). ICD-10 Codes N30.90: Cystitis, unspecified without hematuria 2 of 2 [facility] ED VISIT SUMMARYon ED VISIT SUMMARY Visit Overview Visit Overview [address] [address] [id number] 09/20/2024 Patient: CANDIE ALCARAZ Sex: Female : 1990 Age: 33y 09/21/2024 06:44 AM EST ED Arrival:19:12 09/20/2024 EST Status:not Recent Travel:no Language:eng Adv Directive:No Isolation Status: Ethnicity:N Fall Risk:no risk Infectious Disease Exposure:no Measurements:160.0 lb / 72.6 kg Self-Harm Status:no risk Sepsis Screen:negative Chief Complaint:RIGHT UPPER EXTREMITY PAIN and (2 months) ALLERGIES No Known Drug Allergies HOME MEDICATIONS ondansetron HCl 4 mg tablet: 1 tablet every six to eight hours . PAST MEDICAL HISTORY / PROBLEMS None See nurses notes PAST SURGICAL HISTORY 1 of 3 Visit Overview Dilatation Curettage Knee Surgery. left Tubal Ligation SOCIAL HISTORY Smoking status: No Alcohol use: No Drug use: No ED COURSE MEDICATIONS GIVEN IN EMERGENCY DEPARTMENT 21:08 09/20/24 IV NS 0.9 % 1000 mL 999 mL/hr 22:49 09/20/24 KetorOLAC (Toradol) IVP 30 mg 00:58 09/21/24 Zofran IVP 4 mg 01:00 09/21/24 HYDROmorphone (Dilaudid) IVP 1 mg cefTRIAXone (Rocephin) IVPB 1gm/50ml NS 1 g diluted in sodium chloride IVPB 0.9 % 01:03 09/21/24 Minibag+ 50 mL 100 mL/hr IV SITE INFORMATION INTAKE OUTPUT REASSESMENT (most recent) 22:54 09/20/24. The patient is calm and resting quietly. GENERAL / NEURO / PSYCH: Alert. Oriented X 4. RESPIRATORY: No respiratory distress. EXTREMITIES: Neuro-vascular status intact to the extremity. SKIN: Skin is warm. Family at bedside. VITAL SIGNS First Vitals Last Vitals Temp 19:27 09/20/24 98.2 F Temp 01:45 09/21/24 BP 19:27 09/20/24 141/90 BP 01:45 09/21/24 HR 19:27 09/20/24 84 HR 01:45 09/21/24 RR 19:27 09/20/24 18 RR 01:45 09/21/24 O2 Sat 19:27 09/20/24 98% O2 Sat 01:45 09/21/24 2 of 3 Visit Overview First Vitals Last Vitals Pain 19:27 09/20/24 10 Pain 01:45 09/21/24 4 ETCO2 19:27 09/20/24 ETCO2 01:45 09/21/24 GCS 19:27 09/20/24 GCS 01:45 09/21/24 RTS 19:27 09/20/24 RTS 01:45 09/21/24 PROCEDURES NURSING INTERVENTIONS LABS / STUDIES LABS / STUDIES ORDERED CBC w Diff CMP CRP CT Chest PE Study EKG - ED HCG, Qual Serum Lipase Shoulder R Complete Troponin-I Urinalysis Urine Culture [CCL] CLINICAL IMPRESSION ACUTE URINARY TRACT INFECTION WITH CYSTITIS. NO HEMATURIA. NOT ASSOCIATED WITH INDWELLING CATHETER 3 of 3 [facility] ED VITALS FLOW SHEETon 09-21 ED VITALS FLOW SHEET Vitals Vital Sign Flow Sheet [facility] [address] [place] [address] [id number] 09/20/2024 Patient: CANDIE ALCARAZ Sex: Female : 1990 Age: 33y Measurements Wt: 72.6 kg Measured Time BP MAP HR RR O2Sat ETCO2 Temp Pain GCS RTS 01:45 09/21/2024 4 01:42 09/21/2024 73 89% 01:38 09/21/2024 112/74 81 68 01:37 09/21/2024 66 91% 01:32 09/21/2024 72 91% 01:27 09/21/2024 83 88% 01:23 09/21/2024 109/70 87 75 01:22 09/21/2024 69 90% 01:17 09/21/2024 69 91% 01:12 09/21/2024 78 91% 01:08 09/21/2024 124/78 98 83 01:07 09/21/2024 77 92% 01:02 09/21/2024 71 95% 00:57 09/21/2024 84 96% 00:53 09/21/2024 115/82 92 77 1 of 5 Vitals Measured Time BP MAP HR RR O2Sat ETCO2 Temp Pain GCS RTS 00:52 09/21/2024 82 97% 00:47 09/21/2024 76 96% 00:42 09/21/2024 79 97% 00:38 09/21/2024 111/69 83 78 00:37 09/21/2024 78 96% 00:32 09/21/2024 82 97% 00:27 09/21/2024 84 99% 00:24 09/21/2024 116/75 89 83 00:21 09/21/2024 81 98% 00:16 09/21/2024 76 97% 00:07 09/21/2024 78 97% 00:02 09/21/2024 85 97% 23:57 09/20/2024 79 97% 23:53 09/20/2024 112/75 87 69 23:52 09/20/2024 67 99% 23:47 09/20/2024 75 97% 23:42 09/20/2024 64 99% 23:38 09/20/2024 109/72 83 57 23:37 09/20/2024 0% 23:32 09/20/2024 60 100% 23:27 09/20/2024 57 97% 23:23 09/20/2024 117/74 89 56 23:22 09/20/2024 61 97% 23:17 09/20/2024 69 86% 23:12 09/20/2024 64 96% 2 of 5 Vitals Measured Time BP MAP HR RR O2Sat ETCO2 Temp Pain GCS RTS 23:08 09/20/2024 109/70 83 55 23:07 09/20/2024 67 98% 23:02 09/20/2024 66 97% 22:57 09/20/2024 69 93% 22:55 09/20/2024 126/78 88 55 22:52 09/20/2024 58 100% 22:47 09/20/2024 67 98% 22:42 09/20/2024 62 97% 22:38 09/20/2024 119/72 87 61 22:37 09/20/2024 64 94% 22:32 09/20/2024 71 98% 22:27 09/20/2024 69 97% 22:23 09/20/2024 115/71 95 66 22:22 09/20/2024 66 98% 22:17 09/20/2024 63 100% 22:08 09/20/2024 126/78 93 65 22:07 09/20/2024 62 100% 22:02 09/20/2024 78 99% 21:57 09/20/2024 75 100% 21:53 09/20/2024 128/89 97 58 21:52 09/20/2024 74 100% 21:47 09/20/2024 72 100% 21:42 09/20/2024 61 94% 21:38 09/20/2024 117/78 98 58 21:37 09/20/2024 65 99% 3 of 5 Vitals Measured Time BP MAP HR RR O2Sat ETCO2 Temp Pain GCS RTS 21:32 09/20/2024 58 100% 21:27 09/20/2024 62 100% 21:23 09/20/2024 126/80 93 58 21:22 09/20/2024 69 100% 21:17 09/20/2024 62 99% 21:12 09/20/2024 62 99% 21:09 09/20/2024 115/77 91 60 21:07 09/20/2024 58 99% 21:02 09/20/2024 59 96% 20:57 09/20/2024 68 99% 20:53 09/20/2024 112/78 92 55 20:52 09/20/2024 64 100% 20:39 09/20/2024 136/57 100 55 20:37 09/20/2024 61 96% 20:32 09/20/2024 70 99% 20:27 09/20/2024 76 99% 20:23 09/20/2024 138/84 102 64 20:22 09/20/2024 66 99% 20:17 09/20/2024 70 97% 20:08 09/20/2024 120/80 88 69 20:07 09/20/2024 74 95% 20:02 09/20/2024 78 98% 19:57 09/20/2024 80 100% 19:53 09/20/2024 123/78 88 76 19:52 09/20/2024 75 98% 4 of 5 Vitals Measured Time BP MAP HR RR O2Sat ETCO2 Temp Pain GCS RTS 19:47 09/20/2024 88 94% 19:42 09/20/2024 71 98% 19:27 09/20/2024 141/90 107 84 18 98% 98.2 F 10 5 of 5 [facility] C-REACTIVE PROTEINon 024 CRP [Mass/Vol] mg/L Normal 0.00 - 0.90 [facility] Comment on above: Performed By: #### 2 [id number] #### [facility],[address] [place] [address] CBC + DIFFon 09-20-2024 Baso # 0.02 x10EE3/UL Normal 0.00 - 0.10 [facility] Comment on above: Performed By: #### 2 [id number] #### [facility],[address] [place] [address] 89197 Basophils/100 WBC (Bld) 0.3 % Normal 0.0 - 2.0 [facility] Comment on above: Performed By: #### 2 [id number] #### [facility],[address] [place] [address] CBC + DIFF Normal [facility] Comment on above: Result Comment: CBC- COMPLETE BLOOD COUNT Performed By: #### 2 [id number] #### [facility],[address] [place] [address]347 EO # 0.36 x10EE3/UL Normal 0.00 - 0.50 [facility] Comment on above: Performed By: #### 2 53874 #### [facility],[address] [place] [address] 35655 Eosinophils/100 WBC (Bld) 4.8 % Normal 0.0 - 7.0 [facility] Comment on above: Performed By: #### 2 [id number] #### [facility],[address] [place] [address] 08167 Erythrocyte distribution width (RBC) [Ratio] 12.7 % Normal 12.0 - 15.6 [facility] Comment on above: Performed By: #### 2 [id number] #### [facility],[address] [place] [address] 60803 Hematocrit (Bld) [Volume fraction] 37.8 % Normal 34.0 - 46.0 [facility] Comment on above: Performed By: #### 2 [id number] #### [facility],[address] [place] [address] 31222 Hemoglobin (Bld) [Mass/Vol] 13.2 g/dL Normal 12.0 - 16.0 [facility] Comment on above: Performed By: #### 2 61165 #### [facility],[address] [place] [address] 23581 Lymph # 2.94 x10EE3/UL High 0.80 - 2.80 [facility] Comment on above: Performed By: #### 2 92874 #### [facility],[address] [place] [address] 81496 Lymphocytes/100 WBC (Bld) 39.0 % Normal 20.0 - 45.0 [facility] Comment on above: Performed By: #### 2 08174 #### [facility],[address] [place], [place] [id number] MANUAL DIFF N/A Normal [facility] Comment on above: Performed By: #### 2 86937 #### [facility],[address] [place], [place] [id number] MCH (RBC) [Entitic mass] 32 pg Normal 27 - 33 [facility] Comment on above: Performed By: #### 2 34191 #### [facility],[address] [place] [address] 17018 MCHC 35 X10 3 Normal 32 - 36 [facility] Comment on above: Performed By: #### 2 [id number] #### [facility],[address] [place] [address] 97254 MCV (RBC) [Entitic vol] 93 fL Normal 80 - 99 [facility] Comment on above: Performed By: #### 2 27281 #### [facility],[address] [place] [address]001 [place] # 0.40 x10EE3/UL Normal 0.20 - 1.00 [facility] Comment on above: Performed By: #### 2 02137 #### [facility],[address] [place] [address] 18516 MONOS % 5.3 % Normal 0.0 - 10.0 [facility] Comment on above: Performed By: #### 2 18728 #### [facility],[address] [place] [address] 18659 Morphology Steffen (Bld) [Interp] N/A Normal [facility] Comment on above: Performed By: #### 2 60576 #### [facility],[address] [place] [address] 99035 Neut # 3.82 x10EE3/UL Normal 1.50 - 7.10 [facility] Comment on above: Performed By: #### 2 58686 #### [facility],[address] [place] [address] 37093 Neutrophils/100 WBC (Bld) 50.5 % Normal 46.0 - 76.0 [facility] Comment on above: Performed By: #### [id number] #### [facility],[address] [place] [address] [id number] PLATELET 312 x10EE3/UL Normal 150 - 450 [facility] Comment on above: Performed By: #### [id number] #### [facility],[address] [place] [address] [id number] Platelet mean volume (Bld) [Entitic vol] 7.9 fL Normal 6.6 - 10.5 [facility] Comment on above: Result Comment: AUTO MATED DIFFERENTIAL Performed By: #### [id number] #### [facility],[address] [place] [address] [id number] RBC 4.07 x 10EE6/UL Low 4.10 - 5.30 [facility] Comment on above: Performed By: #### 2 73460 #### [facility],[address] [place] [address] 66932 WBC 7.6 x 10EE3/UL Normal 4.5 - 10.8 [facility] Comment on above: Performed By: #### 2 63860 #### [facility],[address] [place] [address] 02696 CMP with eGFRon 09-20-2024 AGE 33 years Normal [facility] Comment on above: Performed By: #### 2 18395 #### [facility],[address] [place] [address] 70316 Albumin [Mass/Vol] 4.1 g/dL Normal 3.4 - 5.0 [facility] Comment on above: Performed By: #### 2 81758 #### [facility],[address] [place] [address] 72195 Albumin/Globulin [Mass ratio] 1.3 {ratio} Normal 0.9 - 1.6 [facility] Comment on above: Performed By: #### 2 17925 #### [facility],[address] [place] [address] 47343 ALK PHOS 66 U/L Normal 46 - 116 [facility] Comment on above: Performed By: #### 2 17657 #### [facility],[address] [place] [address] 17092 ALT [Catalytic activity/Vol] 16 U/L Normal 16 - 63 [facility] Comment on above: Performed By: #### 2 26616 #### [facility],[address] [place] [address] 43357 Anion gap [Moles/Vol] 11 mmol/L Normal 10 - 20 [facility] Comment on above: Performed By: #### 2 80649 #### [facility],[address] [place] [address] 95249 AST [Catalytic activity/Vol] 14 U/L Normal 13 - 39 [facility] Comment on above: Performed By: #### 2 73405 #### [facility],[address] [place] [address] 41366 B/C RATIO 22 ratio Normal 0 - 30 [facility] Comment on above: Performed By: #### 2 91817 #### [facility],[address] [place] [address] 92072 Bilirubin [Mass/Vol] 0.3 mg/dL Normal 0.2 - 1.0 [facility] Comment on above: Performed By: #### 2 75963 #### [facility],[address] [place] [address] 54102 Calcium [Mass/Vol] 9.2 mg/dL Normal 8.5 - 10.1 [facility] Comment on above: Performed By: #### 2 60875 #### [facility],[address] [place] [address] 53396 Chloride [Moles/Vol] 106 mmol/L Normal 98 - 107 [facility] Comment on above: Performed By: #### 2 69460 #### [facility],[address] [place], [place] [address] CMP with eGFR Normal [facility] Comment on above: Result Comment: COMP REHENSIVE METABOLIC PANEL Performed By: #### 2 28202 #### [facility],[address] [place] [address] CO2 [Moles/Vol] 27.8 mmol/L Normal 21.0 - 32.0 [facility] Comment on above: Performed By: #### 2 49203 #### [facility],[address] [place], [place] [address] Creatinine [Mass/Vol] 0.79 mg/dL Normal 0.55 - 1.02 [facility] Comment on above: Performed By: #### 2 19779 #### [facility],[address] [place], [place] [address] GFR/1.73 sq M.predicted among non-blacks MDRD (S/P/Bld) [Vol rate/Area] mL/min/{1.73_m2} Normal 60 - 999 [facility] Comment on above: Performed By: #### 2 28300 #### [facility],[address] [place] [address] Result Comment: ACCO RDING TO THE NATIONAL KIDNEY DISEASE EDUCATION PROGRAM(NKDE), A NORMAL eGFR IS A VALUE GREATER THAN OR EQUAL TO 60 ML/MIN/1.73 SQ METERS. CHRONIC KIDNEY DISEASE: <60mL/MIN/1.73 SQ METERS KIDNEY FAILURE: <15mL/MIN/1.73 SQ METERS THIS TEST SHOULD ONLY BE USED FOR PATIENTS 18 YEARS OF AGE AND OLDER. Globulin (S) [Mass/Vol] 3.2 g/dL Normal 1.5 - 3.8 [facility] Comment on above: Performed By: #### 2 41093 #### [address] [address] Glucose [Mass/Vol] 95 mg/dL Normal 74 - 106 [facility] Comment on above: Performed By: #### 2 96657 #### [address] [address] Potassium [Moles/Vol] 3.6 mmol/L Normal 3.5 - 5.1 [facility] Comment on above: Performed By: #### 2 47441 #### [address] [address] Protein [Mass/Vol] 7.3 g/dL Normal 6.4 - 8.2 [facility] Comment on above: Performed By: #### 2 72433 #### [address] [address] Sodium [Moles/Vol] 141 mmol/L Normal 136 - 145 [facility] Comment on above: Performed By: #### 2 78138 #### [address] [address] Urea nitrogen [Mass/Vol] 17 mg/dL Normal 7 - 18 [facility] Comment on above: Performed By: #### 2 04528 #### [address] [address] LIPASEon 09-20-2024 Lipase [Catalytic activity/Vol] 35.0 U/L Normal 15.0 - 78.0 [facility] Comment on above: Result Comment: *PLE ASE NOTE THAT RANGES FOR LIPASE HAVE CHANGED OF 09/28/23 DUE TO AN ASSAY UPDATE BY THE CHAIR INSPECTOR AND LEVELER.THE NEW ASSAY RANGE IS 6-250 U/L, WITH A REFERENCE RANGE OF 16-77 U/L. Performed By: #### 2 62091 #### [facility],[address] [place] [address] SERUM QUALon 09-20 EXTERNAL QC DONE? YES Normal [facility] Comment on above: Performed By: #### 2 15061 #### [facility],[address] [place] [address] INTERNAL QC PASS Normal [facility] Comment on above: Performed By: #### 2 89928 #### [facility],[address] [place] [address] SER Negative Normal NEGATIVE [facility] Comment on above: Performed By: #### 2 35143 #### [facility],[address] [place] [address] SHOULDER COMPLETE RTon 09-20 SHOULDER COMPLETE RT [place] [address] Patient: CANDIE ALCARAZ Phone#: : 1990 Age: 33 Gender: F Pt. Type: ER Account: [id number] Location: [facility] Ordering: DEON JUAREZ Exam Date: 09/20/2024/20:50 Family Phys: JOYCE MONTOYA Charge Code: 803262 Physician: [place] Order #: [id number] Dose#: PROCEDURE: X-RAY SHOULDER COMPLETE RT MIN 2 VIEWS COMPARISON: [facility], XR, SHOULDER RT, 08/20/2023, 15:21. INDICATIONS: Shoulder pain. FINDINGS: BONES: Normal. No significant arthropathy or acute abnormality. No fracture or dislocation. SOFT TISSUES: Negative. No visible soft tissue swelling. EFFUSION: None visible. OTHER: Negative. CONCLUSION: No acute osseous abnormality Dictated by: Audra Allen MD on 09/20/2024 at 21:14 Approved by: Audra Allen MD on 09/20/2024 at 21:18 Normal [facility] TROPONINon 09-20-2024 HS TROPONIN 4.6 pg/mL Normal 0.0 - 51.4 [facility] Comment on above: Performed By: #### 2 47584 #### [facility],[address] [place] [address] 20220 URINALYSISon 09-20-2024 Amorphous NONE Normal [facility] Comment on above: Performed By: #### 2 44515 #### [facility],[address] [place] [address] 91046 Bacteria 4+ Normal [facility] Comment on above: Performed By: #### 2 84750 #### [facility],[address] [place] [address] 73351 Bilirubin Ql (U) Negative Normal NORMAL: NEGATIVE [facility] Comment on above: Performed By: #### 2 34838 #### [facility],[address] [place], [place] [phone] Casts NONE Normal [facility] Comment on above: Performed By: #### 2 18580 #### [facility],[address] [place] [address] 47488 Clarity (U) very cloudy Normal NORMAL: CLEAR [facility] Comment on above: Performed By: #### 2 93485 #### [facility],[address] [place] [address] 05763 Color (U) yellow Normal NORMAL: YELLOW [facility] Comment on above: Performed By: #### 2 93898 #### [facility],[address] [place] [address] 47457 Crystals LM Nom (Urine sed) NONE Normal [facility] Comment on above: Performed By: #### 2 28249 #### [facility],[address] [place] [address] 59983 Epi Cells MODERATE Normal [facility] Comment on above: Performed By: #### 2 36420 #### [facility],[address] [place] [address] 23291 Glucose Ql (U) NORM Normal NORMAL: NORMAL [facility] Comment on above: Performed By: #### 2 71539 #### [facility],[address] [place] [address] 39930 Hemoglobin Ql (U) 50 Abnormal NORMAL: NEGATIVE [facility] Comment on above: Performed By: #### 2 21644 #### [facility],[address] [place] [address] 55292 Ketone Negative Normal NORMAL: NEGATIVE [facility] Comment on above: Performed By: #### 2 55905 #### [facility],[address] [place] [address] 82626 Leukocytes 100 Abnormal NORMAL: NEGATIVE [facility] Comment on above: Performed By: #### 2 59871 #### [facility],[address] [place], [place] [phone] Mucous NONE Normal [facility] Comment on above: Performed By: #### 2 50279 #### [facility],[address] [place] [address] 16923 Nitrite Ql (U) Positive Normal NORMAL: NEGATIVE [facility] Comment on above: Performed By: #### 2 41161 #### [facility],[address] [place] [address] 59979 pH (U) 6 [pH] Normal NORMAL: 5.0-8.0 [facility] Comment on above: Performed By: #### 2 63731 #### [facility],[address] [place] [address] 34527 Protein Ql (U) 15 Abnormal NORMAL: NEGATIVE [facility] Comment on above: Performed By: #### 2 48481 #### [facility],[address] [place] [address] 03398 Rbc 0-5 Normal 0-3/hpf [facility] Comment on above: Performed By: #### 2 33242 #### [facility],[address] [place] [address] Sp Percival 1.025 Normal NORMAL: 1.010-1.030 [facility] Comment on above: Performed By: #### 2 34597 #### [facility],[address] [place] [address] Specimen Type R Normal [facility] Comment on above: Performed By: #### 2 75084 #### [facility],[address] [place] [address] Urinalysis dipstick W Reflex Microscopic panel (U) SEE BELOW Normal [facility] Comment on above: Result Comment: MICR OSCOPIC Performed By: #### 2 63234 #### [facility],[address] [place] [address] Urobilinog NORM Normal NORMAL: NORMAL [facility] Comment on above: Performed By: #### 2 61215 #### [place] [address] Wbc 1-5 Normal 0-5/hpf [facility] Comment on above: Performed By: #### 2 99293 #### [facility],[address] [place] [address] Yeast NONE Normal [facility] Comment on above: Performed By: #### 2 33795 #### [place] [address] Final Surgical Pathology Rep [facility] 07-24-2024 Final Surgical Pathology Report . 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 Centrally the serosal surface has a area of defect measuring 1.5 x 1.2 cm. In the container is a adherent portion of soft tissue and blood clot measuring 3 x 1.5 x 0.7 cm. A1 -A3- dilated fallopian tube with separately received blood clot. RS-3 Ella Woody, Pathologists' Field Captain (ASCP) Performed by ELLA WOODY MICROSCOPIC DESCRIPTION: The microscopic examination is performed, except in the case of Gross Only. Electronically Signed by Pathology Report verified by [facility] MERON DOUGLASS Sign out Date: 07/24/2024 11:23 Performing Lab: [facility], [address] [place] [address] Pathology Dept Disclaimer If ancillary studies were utilized, the following Laboratory Developed Test (LDT) disclaimer will apply: Under CLIA requirements, [facility] is qualified to perform high complexity testing. For all ancillary stains, positive and negative controls stain appropriately. Performance characteristics of immunohistochemical and chromogenic in-situ hybridization tests have been determined by [facility]. These tests are used for clinical purposes, They should not be regarded as investigational or for research. Normal [facility] BB TYPE & SCREENon 4 ABO O Normal [facility] Comment on above: Performed By: #### 2 38409 #### [facility],[address] [place] [address] ANTIBODY SCR Negative Normal [facility] Comment on above: Performed By: #### 2 21145 #### [facility],[address] [place] [address] BB TYPE & SCREEN Normal [facility] Comment on above: Result Comment: TYPE , Rh, AND SCREEN Performed By: #### 2 35464 #### [facility],[address] [place] [address] Rh Nom (Bld) Positive Normal [facility] Comment on above: Performed By: #### 2 54203 #### [facility],[address] [place] [address] CBC + DIFFon 07-20-2024 Baso # 0.02 x10EE3/UL Normal 0.00 - 0.10 [facility] Comment on above: Performed By: #### 2 89210 ####[facility],[address] [place] [address] 51895 Basophils/100 WBC (Bld) 0.2 % Normal 0.0 - 2.0 [facility] Comment on above: Performed By: #### 2 22057 ####[facility],[address] [place] [address] CBC + DIFF Normal [facility] Comment on above: Result Comment: CBC- COMPLETE BLOOD COUNT Performed By: #### 2 94604 ####[facility],[address] [place] [address] 64519 EO # 0.21 x10EE3/UL Normal 0.00 - 0.50 [facility] Comment on above: Performed By: #### 2 17826 ####[facility],[address] [place] [address] 22974 Eosinophils/100 WBC (Bld) 2.6 % Normal 0.0 - 7.0 [facility] Comment on above: Performed By: #### 2 77488 ####[facility],[address] [place] [address] 90153 Erythrocyte distribution width (RBC) [Ratio] 12.4 % Normal 12.0 - 15.6 [facility] Comment on above: Performed By: #### 2 46215 ####[facility],[address] [place] [address] 96671 Hematocrit (Bld) [Volume fraction] 36.7 % Normal 34.0 - 46.0 [facility] Comment on above: Performed By: #### 2 52531 ####[facility],[address] [place] [address] 59415 Hemoglobin (Bld) [Mass/Vol] 12.1 g/dL Normal 12.0 - 16.0 [facility] Comment on above: Performed By: #### 2 14448 ####[facility],[address] [place] [address] 64140 Lymph # 2.81 x10EE3/UL High 0.80 - 2.80 [facility] Comment on above: Performed By: #### 2 42120 ####[facility],[address] [place] [address] 10527 Lymphocytes/100 WBC (Bld) 34.5 % Normal 20.0 - 45.0 [facility] Comment on above: Performed By: #### 2 80350 ####[facility],[address] [place] [address] 23674 MANUAL DIFF N/A Normal [facility] Comment on above: Performed By: #### 2 46580 ####[facility],[address] [place], [place] [address] MCH (RBC) [Entitic mass] 31 pg Normal 27 - 33 [facility] Comment on above: Performed By: #### 2 90346 ####[facility],[address] [place] [address] 37421 MCHC 33 X10 3 Normal 32 - 36 [facility] Comment on above: Performed By: #### 2 40635 ####[facility],[address] [place] [address] 37349 MCV (RBC) [Entitic vol] 93 fL Normal 80 - 99 [facility] Comment on above: Performed By: #### 2 47082 ####[facility],[address] [place] [address] 11498 [place] # 0.38 x10EE3/UL Normal 0.20 - 1.00 [facility] Comment on above: Performed By: #### 2 29130 ####[facility],[address] [place] [address] 56376 MONOS % 4.7 % Normal 0.0 - 10.0 [facility] Comment on above: Performed By: #### 2 54155 ####[facility],[address] [place] [address] 77993 Morphology Steffen (Bld) [Interp] N/A Normal [facility] Comment on above: Performed By: #### 2 01586 ####[facility],[address] [place] [address] 08214 Neut # 4.71 x10EE3/UL Normal 1.50 - 7.10 [facility] Comment on above: Performed By: #### 2 49330 ####[facility],[address] [place] [address] 87780 Neutrophils/100 WBC (Bld) 57.9 % Normal 46.0 - 76.0 [facility] Comment on above: Performed By: #### 2 06700 ####[facility],[address] [place] [address] 70269 PLATELET 332 x10EE3/UL Normal 150 - 450 [facility] Comment on above: Performed By: #### 2 40395 ####[facility],[address] [place] [address] 80097 Platelet mean volume (Bld) [Entitic vol] 7.5 fL Normal 6.6 - 10.5 [facility] Comment on above: Result Comment: AUTO MATED DIFFERENTIAL Performed By: #### 2 97381 ####[facility],[address] [place] [address] 81284 RBC 3.94 x 10EE6/UL Low 4.10 - 5.30 [facility] Comment on above: Performed By: #### 2 74361 ####[facility],[address] [place] [address] 06217 WBC 8.1 x 10EE3/UL Normal 4.5 - 10.8 [facility] Comment on above: Performed By: #### 2 31158 ####[facility],[address] [place] [address] 57491 CMP with eGFRon 07-20-2024 AGE 33 years Normal [facility] Comment on above: Performed By: #### 2 61459 #### [facility],[address] [place] [address] 63606 Albumin [Mass/Vol] 4.3 g/dL Normal 3.4 - 5.0 [facility] Comment on above: Performed By: #### 2 91456 #### [facility],[address] [place] [address] 65805 Albumin/Globulin [Mass ratio] 1.1 {ratio} Normal 0.9 - 1.6 [facility] Comment on above: Performed By: #### 2 47828 #### [facility],[address] [place] [address] 29232 ALK PHOS 58 U/L Normal 46 - 116 [facility] Comment on above: Performed By: #### 2 62141 #### [facility],[address] [place] [address] 03354 ALT [Catalytic activity/Vol] 18 U/L Normal 16 - 63 [facility] Comment on above: Performed By: #### 2 65577 #### [facility],[address] [place] [address] 17366 Anion gap [Moles/Vol] 16 mmol/L Normal 10 - 20 [facility] Comment on above: Performed By: #### 2 95102 #### [facility],[address] [place] [address] 87004 AST [Catalytic activity/Vol] 15 U/L Normal 13 - 39 [facility] Comment on above: Performed By: #### 2 70774 #### [facility],[address] [place] [address] 87898 B/C RATIO 20 ratio Normal 0 - 30 [facility] Comment on above: Performed By: #### 2 80313 #### [facility],[address] [place] [address] 93523 Bilirubin [Mass/Vol] 0.3 mg/dL Normal 0.2 - 1.0 [facility] Comment on above: Performed By: #### 2 10376 #### [facility],[address] [place] [address] 95852 Calcium [Mass/Vol] 9.0 mg/dL Normal 8.5 - 10.1 [facility] Comment on above: Performed By: #### 2 25259 #### [facility],[address] [place] [address] 62068 Chloride [Moles/Vol] 102 mmol/L Normal 98 - 107 [facility] Comment on above: Performed By: #### 2 42843 #### [facility],[address] [place], [place] [phone] CMP with eGFR Normal [facility] Comment on above: Result Comment: COMP REHENSIVE METABOLIC PANEL Performed By: #### 2 64547 #### [facility],[address] [place], [place] [address] CO2 [Moles/Vol] 26.1 mmol/L Normal 21.0 - 32.0 [facility] Comment on above: Performed By: #### 2 16557 #### [facility],[address] [place], [place] [address] Creatinine [Mass/Vol] 0.87 mg/dL Normal 0.55 - 1.02 [facility] Comment on above: Performed By: #### 2 51829 #### [place] [id number] GFR/1.73 sq M.predicted among non-blacks MDRD (S/P/Bld) [Vol rate/Area] mL/min/{1.73_m2} Normal 60 - 999 [facility] Comment on above: Performed By: #### 2 65247 #### [facility],[address] [place] [address] Result Comment: ACCO RDING TO THE NATIONAL KIDNEY DISEASE EDUCATION PROGRAM(NKDE), A NORMAL eGFR IS A VALUE GREATER THAN OR EQUAL TO 60 ML/MIN/1.73 SQ METERS. CHRONIC KIDNEY DISEASE: <60mL/MIN/1.73 SQ METERS KIDNEY FAILURE: <15mL/MIN/1.73 SQ METERS THIS TEST SHOULD ONLY BE USED FOR PATIENTS 18 YEARS OF AGE AND OLDER. Globulin (S) [Mass/Vol] 3.8 g/dL Normal 1.5 - 3.8 [facility] Comment on above: Performed By: #### 2 01256 #### [address] [address] Glucose [Mass/Vol] 111 mg/dL High 74 - 106 [facility] Comment on above: Performed By: #### 2 53525 #### [address] [address] Potassium [Moles/Vol] 3.5 mmol/L Normal 3.5 - 5.1 [facility] Comment on above: Performed By: #### 2 98888 #### [address] [address] Protein [Mass/Vol] 8.1 g/dL Normal 6.4 - 8.2 [facility] Comment on above: Performed By: #### 2 11315 #### [address] [address] Sodium [Moles/Vol] 141 mmol/L Normal 136 - 145 [facility] Comment on above: Performed By: #### 2 51372 #### [address] [address] Urea nitrogen [Mass/Vol] 17 mg/dL Normal 7 - 18 [facility] Comment on above: Performed By: #### 2 30326 #### [address] [address] ED FACILITY CODING SUMMARY 07-20-2024 ED FACILITY CODING SUMMARY Facility Coding Facility Coding Summary [address] [address] [id number] 07/20/2024 Patient: CANDIE ALCARAZ Sex: Female : 1990 Age: 33y Providers: Harvey Charles D.O. DIAGNOSTIC WORKUP Chief Complaint VAGINAL BLEEDING and PELVIC PAIN. -- Harvey Charles D.O. Principal Diagnosis Acute nontraumatic pain in the pelvis. -- Harvey Charles D.O. ICD-10 Codes R10.2: Pelvic and perineal pain PROCEDURES Procedures from Providers: Procedures from Nurses/Facility: IV Hydration (CPT: 36325 X3) IV Push MORPHine IVP (CPT: 06887) IV Push MORPHine IVP (CPT: 66869) IV Push Zofran IVP (CPT: 73309) SUPPLIES 1 of 2 Facility Coding [facility] [id number] This is a partial abstract of information documented in the full record. Assistant Distribution Manager must use independent judgment in selecting codes. CPT copyright 2022 [employer]. All Rights Reserved. 2 of 2 Normal [facility] ED MED ADMINISTRATION DETAIL on 07-20-2024 ED MED ADMINISTRATION DETAIL Lead C Developer Medication Administration Record [address] [place] [address] [id number] 07/20/2024 Patient: CANDIE ALCARAZ Sex: Female : 1990 Age: 33y MEASUREMENTS: Wt: 63.5 kg, Ht/Vinicius: 63.0 in, BMI: 24.80 ALLERGIES: No known drug allergies Medication Ordered Medication Administration Date/Time IV NS 0.9 % 1000 16:21 07/20 IV NS 0.9 % 1000 mL started in bag#1 1000 mL at Started mL at 999 mL/hr 999 mL/hr via Site# 1. Allergies verified and confirmed 5 rights. IV 16:21 07/20/2024 (NOW x1) patency established. IV site checked: no pain, redness, or swelling. Les Luna R.N. IV flushed thoroughly pre-medication administration. Information Stopped reviewed with patient. - 16:22 Les Luna R.N. 19:04 07/20/2024 Les Luna R.N. 19:04 07/20 Medication Discontinued: bag #1 completed. Total Scanned amount infused: 1000 mL. IV patency established. IV site checked: no pain, redness, or swelling. IV flushed thoroughly post-medication administration. - 19:04 Les Luna R.N. MORPHine IVP 4 16:22 10 MORPHine IVP 4 mg given via Site# 1. Allergies Given mg (NOW x1, HIGH verified and confirmed 5 rights. IV patency established. IV site 16:22 07/20/2024 ALERT checked: no pain, redness, or swelling. IV flushed thoroughly Les Luna R.N. MEDICATION) pre-medication administration. IVP given by nurse. Information Scanned reviewed with patient including sedative warning. - 16:23 Les Luna R.N. Zofran IVP 4 mg 16:22 10 Zofran IVP 4 mg given via Site# 1. Allergies verified Given (NOW x1) and confirmed 5 rights. IV patency established. IV site checked: no 16:22 07/20/2024 pain, redness, or swelling. IV flushed thoroughly pre-medication Les Luna R.N. administration. IVP given by nurse. Information reviewed with Scanned patient. - 16:22 Les Luna R.N. 1 of 2 Lead C Developer Medication Ordered Medication Administration Date/Time MORPHine IVP 4 19:12 07/20 MORPHine IVP 2 mg given via Site# 1. Allergies Given mg (NOW x1, HIGH verified and confirmed 5 rights. IV patency established. IV site 19:12 07/20/2024 ALERT checked: no pain, redness, or swelling. IV flushed thoroughly Bry Lopez R.N. MEDICATION) pre-medication administration. IVP given by bry. Information Scanned reviewed with patient including reason for taking this medication and sedative warning. Verbalizes understanding. - 19:16 Bry Lopez R.N. MORPHine IVP 4 19:16 10 MORPHine IVP 4 mg given via Site# 1. Allergies Given mg (NOW x1, HIGH verified and confirmed 5 rights. IV patency established. IV site 19:16 07/20/2024 ALERT checked: no pain, redness, or swelling. IV flushed thoroughly Bry Lopez R.N. MEDICATION) pre-medication administration. IVP given by nurse. Information Not Scanned reviewed with patient including reason for taking this medication, precautions and sedative warning. Verbalizes understanding. - 19:21 Bry Lopez R.N. 2 of 2 [facility] ED NURSES CLINICAL NOTEon ED NURSES CLINICAL NOTE Nurse Narrative Nurse Clinical Narrative [facility] [address] [place] [address] [phone] 07/20/2024 Patient: CANDIE ALCARAZ Sex: Female : 1990 Age: 33y Disposition: Admit to Surgery via Operating Room Disposition Decision Time: 20:06 07/20/2024 Departure Time: 20:11 07/20/2024 TRIAGE 15:35 07/20/24. BP: 112/86 MAP: 95. HR: 63. RR: 20. O2 saturation: 98% Temperature: 97.3 F. Pain level now 07/10. -- 15:40 07/20/24 EDT Anita Johnson R.N. Arrived by private vehicle. Historian: patient. Triage time: 15:36 07/20/2024. Acuity: LEVEL 3. Chief Complaint: ABDOMINAL PAIN, NAUSEA and VOMITING. Alert. No acute distress. Onset. (seen sunday- worse today). The patient has had nausea, vomiting and abdominal pain. No diarrhea, constipation or fever. SEPSIS SCREEN: NEGATIVE. SIRS criteria negative. SEVERE SEPSIS SCREEN NEGATIVE. No signs of organ dysfunction present. -- 15:40 07/20/24 EDT Anita Johnson R.N. Measurements: 15:40 07/20/24 Wt: 63.5 kg, Ht/Vinicius: 63.0 in, BMI: 24.80 -- 15:40 07/20/24 EDT Anita Johnson R.N. Medications: ondansetron HCl 4 mg tablet: 1 tablet every six to eight hours . -- 15:37 07/20/24 EDT Anita Johnson R.N. 1 of 4 Nurse Narrative Allergies: no known drug allergies -- 15:37 07/20/24 EDT Anita Johnson R.N. Problems: no known problem -- 15:37 07/20/24 EDT Anita Johnson R.N. ADDITIONAL SURGERIES: Knee Surgery. left -- 15:37 07/20/24 ULISES Johnson R.N. Dilatation Curettage -- 15:37 07/20/24 ULISES Johnson R.N. History 15:36 07/20/24. PAST MEDICAL HX: Immunizations: up-to-date. Last normal menstrual period- 7 weeks. Currently . SOCIAL HX: Light tobacco smoker- less than 1/2 a pack per day. No alcohol use or drug use. No recent travel. No known contact with a sick individual. The patient has not traveled outside the [place] Infectious disease exposure: No infectious disease exposure. ABUSE ASSESSMENT: Abuse denied. No suspicion of abuse. SELF HARM ASSESSMENT: Self harm assessment was performed. The patient answered no to the question(s) Have you recently felt down, depressed, or hopeless? and Do you have thoughts of harming or killing yourself?. FALL RISK ASSESSMENT: Fall risk assessment completed. No risk factors identified. -- 15:40 07/20/24 ULISES Johnson R.N. Interventions 15:36 07/20/24. Identification band on patient. To treatment room. Advanced care plan. Patient does not have advanced directive. -- 15:40 07/20/24 ULISES Johnson R.N. PHYSICAL ASSESSMENT 2 of 4 Nurse Narrative 15:57 07/20/24. Ambulatory to room. GENERAL / NEURO / PSYCH: Alert. Oriented X 4. Appears in no acute distress. RESPIRATORY: Respirations not labored. Breath sounds within normal limits. CVS: Capillary refill less than 2 seconds. GI / : The patient has had nausea. Abdomen soft. Abdominal tenderness. Bowel sounds within normal limits. ( pt started bleeding vaginally while dry heaving). SKIN: Skin is warm and dry. -- 15:57 07/20/24 ULISES Luna R.N. NURSING PROGRESS NOTES 16:09 07/20/24. Site #1 started via IV in the right antecubital space with an 18g angiocath with aseptic technique and good blood return; 2 attempts. Blood drawn: rainbow set tube(s) and blood bank tube. Labeled in the presence of the patient and sent to the lab. Saline lock flushed with 5 mL saline. -- 16:13 07/20/24 ULISES Luna R.N. 16:21 07/20/24. IV NS 0.9 % 1000 mL started in bag#1 1000 mL at 999 mL/hr via Site# 1. Allergies verified and confirmed 5 rights. IV patency established. IV site checked: no pain, redness, or swelling. IV flushed thoroughly pre-medication administration. Information reviewed with patient. -- 16:22 07/20/24 EDT Les Luna R.N. 16:22 07/20/24. Zofran IVP 4 mg given via Site# 1. Allergies verified and confirmed 5 rights. IV patency established. IV site checked: no pain, redness, or swelling. IV flushed thoroughly pre-medication administration. IVP given by nurse. Information reviewed with patient. -- 16:22 07/20/24 EDT Les Luna R.N. 16:22 07/20/24. MORPHine IVP 4 mg given via Site# 1. Allergies verified and confirmed 5 rights. IV patency established. IV site checked: no pain, redness, or swelling. IV flushed thoroughly pre-medication administration. IVP given by nurse. Information reviewed with patient including sedative warning. -- 16:23 07/20/24 EDT Les Luna R.N. 16:57 07/20/24. Patient transported to sonogram by stretcher with i&c tech. -- 16:57 07/20/24 EDT Les Luna R.N. 17:29 07/20/24. Patient returned from sonogram with i&c tech. -- 17:29 07/20/24 EDT Les Luna R.N. 18:27 07/20/24. Chute Greaser provided for the general and pelvic exam by the physician. -- 18:27 07/20/24 EDT Les Luna R.N. 19:04 07/20/24. IV NS 0.9 %: Medication Disc (more content not included)... [facility] ED ORDER SHEET ([facility] ONLY)on 07-20-2024 ED ORDER SHEET ([facility]OE ONLY) Order Sheet Order Sheet [address] [place] [address] [id number] 07/20/2024 Patient: CANDIE ALCARAZ Sex: Female : 1990 Age: 33y MEASUREMENTS: Wt: 63.5 kg, Ht/Vinicius: 63.0 in, BMI: 24.80 ALLERGIES: No known drug allergies MEDICATION/IV/DRIP/FLUI D ORDERS Order Description Priority Entered Acknowledged Completed IV NS 0.9 %1000 mL at 999 16:06 07/20/2024 16:11 16:22 mL/hr (NOW x1) Harvey Charles D.O. 07/20/2024 07/20/2024 Les Bliss, R.N. R.N. MORPHine IVP4 mg (NOW x1, 16:07 07/20/2024 16:11 16:23 HIGH ALERT MEDICATION) Harvey Charles D.O. 07/20/2024 07/20/2024 Les Bliss R.N. R.N. Zofran IVP4 mg (NOW x1) 16:07 07/20/2024 16:11 16:22 Harvey Charles D.O. 07/20/2024 07/20/2024 Les Bliss R.N. R.N. MORPHine IVP4 mg (NOW x1, 18:32 07/20/2024 18:40 19:14 HIGH ALERT MEDICATION) Harvey Charles D.O. 07/20/2024 07/20/2024 Bry Bliss, R.N. R.NRosita 1 of 3 Order Sheet Reason for ordering with alerts: Benefits outweigh risks --18:32 07/20/2024 Harvey Charles D.O. Fentanyl GAY646 mcg (NOW x1) 20:01 07/20/2024 Harvey Charles D.O. Reason for ordering with alerts: Benefits outweigh risks --20:01 07/20/2024 Harvey Charles D.O. LAB ORDERS Order Description Priority Entered Acknowledged Collected Completed CBC w Diff Stat Stat 16:06 07/20/2024 16:11 07/20/2024 16:27 07/20/2024 Les Mosqueda Jamie Burgett D.O. R.N. R.NRosita CMP Stat Stat 16:06 07/20/2024 16:11 07/20/2024 16:27 07/20/2024 Les Mosqueda Jamie Burgett, D.O. R.N. R.N. Urinalysis Stat Stat 16:06 07/20/2024 16:11 07/20/2024 Les Mosqueda D.O. R.N. Beta-HCG, Quant Stat 16:06 07/20/2024 16:11 07/20/2024 16:27 07/20/2024 Serum Stat Les Mosqueda Jamie Burgett, D.O. R.N. R.NRosita Blood Bank Order Stat Stat 16:06 07/20/2024 16:11 07/20/2024 16:27 07/20/2024 Les Mosqueda Jamie Burgett, D.O. R.N. R.NRosita DIAGNOSTIC STUDY ORDERS Order Description Priority Entered Acknowledged Completed US Pelvic Stat Stat 16:06 07/20/2024 16:08 16:27 Harvey Charles D.O. 07/20/2024 07/20/2024 2 of 3 Order Sheet Israel Luna, R.N. Reason for Study: Pain,Possible Ectopic US Pelvis Endo Vag Stat Stat 16:16 07/20/2024 16:17 16:27 Harvey Charles D.O. 07/20/2024 07/20/2024 Les Bliss R.N. R.N. Reason for Study: Possible Ectopic US OB<14WK Single Gestation Stat 16:17 07/20/2024 16:18 16:27 Stat Harvey Charles D.O. 07/20/2024 07/20/2024 Israel Luna R.N. Reason for Study: Possible Ectopic STAFF ORDERS Order Description Priority Entered Acknowledged Collected Completed Start 2 large bore 16:06 07/20/2024 16:11 07/20/2024 16:27 07/20/2024 peripheral IVs Harvey Charles, Les Bliss D.O. R.NRosita RRositaNRosita [Electronically signed by Harvey Charles D.O. (07/20/2024 16:08 EDT)] [Electronically signed by Harvey Charles D.O. (07/20/2024 20:10 EDT)] 3 of 3 [facility] ED PHYS CODING ABST SUMMARYo n 07-20-2024 ED PHYS CODING ABST SUMMARY Coding Summary Coding Summary [address] [address] [id number] 07/20/2024 Patient: CANDIE ALCARAZ Sex: Female : 1990 Age: 33y ICD-10 Codes R10.2: Pelvic and perineal pain This is a partial abstract of information documented in the full record. Assistant Distribution Manager must use independent judgment in selecting codes. CPT copyright 2022 [employer]. All Rights Reserved. 1 of 1 [facility] ED PHYSICIAN CLINICAL REPORT on 07-20-2024 ED PHYSICIAN CLINICAL REPORT Narrative Physician Clinical Narrative [address] [address] [id number] 07/20/2024 Patient: CANDIE ALCARAZ Sex: Female : 1990 Age: 33y Disposition: Transfer Disposition Decision Time: 20:06 07/20/2024 Measurements Wt: 63.5 kg, Ht/Vinicius: 63.0 in, BMI: 24.80 Initial Vital Sign Measured Time BP MAP HR RR O2Sat ETCO2 Temp Pain GCS RTS 15:35 07/20/2024 112/86 95 63 20 98% 97.3 F 10 Time Seen: 15:57 07/20/2024. Arrived- By private vehicle. Historian- patient. HISTORY OF PRESENT ILLNESS Chief Complaint: VAGINAL BLEEDING and PELVIC PAIN. Last normal menstrual period- june 03. Gestational age is ( 5, 1 living child, 3 miscarriages). This started just prior to arrival 1 hours ago. The patient has had vaginal bleeding (and spotting). Is still present. It was abrupt in onset and has been constant (sudden onset 1 hour ago). No contractions, complaint of leakage of fluid or vaginal discharge. (on progesterone: no ultrasound with this ). Similar symptoms previously. None. REVIEW OF SYSTEMS 1 of 12 Narrative GI: The patient has had nausea. No vomiting, diarrhea or black stools. NEUROLOGICAL: No headache. PAST HISTORY Negative. ( 5, 3 previous miscarriages, 1 living child no prior tubal or ectopic pregnancies. No prior STI). The patient has had care (no ultrasound done yet). no known problem Surgeries: Dilatation Curettage Knee Surgery: Body Site left Medications: ondansetron HCl 4 mg tablet: 1 tablet every six to eight hours . Allergies: no known drug allergies SOCIAL HISTORY Heavy tobacco smoker- less than 1 pack per day. No alcohol use or drug use. No recent travel. ADDITIONAL NOTES The nursing notes have been reviewed with agreement regarding the chief complaint, PMH and patient medications and allergies. PHYSICAL EXAM Vital Signs: Have been reviewed. Appearance: Alert. Oriented X3. Anxious. Appears to be in pain. Patient in moderate distress. HEENT: Normal external inspection. ENT: Pharynx normal. Neck: Neck supple. CVS: Heart sounds normal. Respiratory: No respiratory distress. Painless inspiration. Breath sounds normal. Chest nontender. Abdomen: Soft and nontender. Bowel sounds normal. No organomegaly. No mass. Back: Normal external inspection. 2 of 12 Narrative Pelvic: Speculum and bimanual exam performed. Normal external exam: bleeding (cervical motion tenderness). No contractions present. Uterine size not consistent with term . Not . FHTs: 0. (female exam reveals cervical motion tenderness and bilateral adnexal tenderness worse on the left than on right.). Skin: Normal skin color. Extremities: Extremities nontender. No pathologic edema. Neuro: Oriented X 3. LABS, X-RAYS, AND EKG Diagnostic Tests: Diagnostic tests have been ordered, with results reviewed and considered in the medical decision making process. Note - Tests: (pelvic ultrasound was performed by all ultrasound/radiology. It shows no intrauterine . It shows a complex fluid collection around the left adnexa. In light of the patient's cervical motion tenderness and pain I am concerned about possible ectopic .). Laboratory Tests: CBC + DIFF Final AMI: 07/20/2024 16:09:00 EDT MsgRcvd: 07/20/2024 16:30 EDT Lab Test Result Reference Status Received Comments 07/20/2024 16:30 CBC-COMPLETE CBC + DIFF Final EDT BLOOD COUNT 07/20/2024 16:30 WBC 8.1 x 10/UL 4.5 - 10.8 Final EDT 3.94 x 10/UL 07/20/2024 16:30 RBC 4.10 - 5.30 Final Below low normal EDT 07/20/2024 16:30 HEMOGLOBIN 12.1 g/dl 12.0 - 16.0 Final EDT 07/20/2024 16:30 HEMATOCRIT 36.7 % 34.0 - 46.0 Final EDT 3 of 12 Narrative 07/20/2024 16:30 MCV 93 fl 80 - 99 Final EDT 07/20/2024 16:30 MCH 31 pg 27 - 33 Final EDT 07/20/2024 16:30 MCHC 33 X10 3 32 - 36 Final EDT 07/20/2024 16:30 RDW/CV 12.4 % 12.0 - 15.6 Final EDT 07/20/2024 16:30 PLATELET 332 x10/UL 150 - 450 Final EDT 07/20/2024 16:30 AUTOMATED MPV 7.5 fl 6.6 - 10.5 Final EDT DIFFERENTIAL 07/20/2024 16:30 NEUT % 57.9 % 46.0 - 76.0 Final EDT 07/20/2024 16:30 LYMPH % 34.5 % 20.0 - 45.0 Final EDT 07/20/2024 16:30 MONOS % 4.7 % 0.0 - 10.0 Final EDT 07/20/2024 16:30 EO % 2.6 % 0.0 - 7.0 Final EDT 07/20/2024 16:30 BASO % 0.2 % 0.0 - 2.0 Final EDT 2.81 x10/UL 07/20/2024 16:30 Lymph # 0.80 - 2.80 Final Above high normal EDT 07/20/2024 16:30 Neut # 4.71 x10/UL 1.50 - 7.10 Final EDT 07/20/2024 16:30 [place] # 0.38 x10/UL 0.20 - 1.00 Final EDT 4 of 12 Narrative 07/20/2024 16:30 EO # 0.21 x10/UL 0.00 - 0.50 Final EDT 07/20/2024 16:30 Baso # 0.02 x10/UL 0.00 - 0.10 Final EDT 07/20/2024 16:30 MAN (more content not included)... [facility] ED SUPER BILLon 07-20-2024 ED [facility]PER [facility]ILL [facility] [address] [address] [id number] 07/20/2024 Patient: CANDIE ALCARAZ Sex: Female : 1990 Age: 33y Facility Professional Category Item Description Code Code Quantity Fee Total Nurse/E/M EMERGENCY 986370 1 $0.00 $0.00 DEPT VISIT HIGH SEVERITYFUNCJ (69418-12) Nurse/IV/IM/Infusions Hydration 103047 3 $0.00 $0.00 additional hour (62553) Nurse/IV/IM/Infusions IVP additional 609572 1 $0.00 $0.00 push (29258) Nurse/IV/IM/Infusions IVP initial (79376) 262898 1 $0.00 $0.00 Nurse/IV/IM/Infusions IVP same med 513938 1 $0.00 $0.00 (31 min apart) (46816) Grand $0.00 Total Providers Harvey Charles D.O. 1 of 2 [facility] Chief Complaint VAGINAL BLEEDING and PELVIC PAIN. Principal Diagnosis Acute nontraumatic pain in the pelvis. Probable ovarian ectopic ; positive test in emergency department. ICD-10 Codes R10.2: Pelvic and perineal pain 2 of 2 [facility] ED VISIT SUMMARYon ED VISIT SUMMARY Visit Overview Visit Overview [address] [address] [id number] 07/20/2024 Patient: CANDIE ALCARAZ Sex: Female : 1990 Age: 33y 07/20/2024 10:15 PM EDT ED Arrival:15:34 07/20/2024 EDT Status: Recent Travel:no Language:eng Adv Directive:No Isolation Status: Ethnicity:N Fall Risk:no risk Infectious Disease Exposure:no Measurements:5'3 / 160.0 Self-Harm Status:risk Sepsis Screen:negative cm 140.0 lb / 63.5 kg Chief Complaint:ABDOMINAL PAIN, NAUSEA, VOMITING, and (seen sunday- worse today) ALLERGIES No Known Drug Allergies HOME MEDICATIONS ondansetron HCl 4 mg tablet: 1 tablet every six to eight hours . PAST MEDICAL HISTORY / PROBLEMS Currently Immunizations: up-to-date 3 Visit Overview Last normal menstrual period- 7 weeks Negative None The patient has had care (no ultrasound done yet) PAST SURGICAL HISTORY Dilatation Curettage Knee Surgery. left SOCIAL HISTORY Smoking status: Yes Alcohol use: No Drug use: No ED COURSE MEDICATIONS GIVEN IN EMERGENCY DEPARTMENT 16:21 07/20/24 IV NS 0.9 % 1000 mL 999 mL/hr 16:22 07/20/24 Zofran IVP 4 mg 16:22 07/20/24 MORPHine IVP 4 mg 19:12 07/20/24 MORPHine IVP 2 mg 19:16 07/20/24 MORPHine IVP 4 mg IV SITE INFORMATION 16:09 07/20/24 Site #1 right AC, 18g. Saline lock. INTAKE OUTPUT REASSESMENT (most recent) 15:57 07/20/24. Ambulatory to room. GENERAL / NEURO / PSYCH: Alert. Oriented X 4. Appears in no acute distress. RESPIRATORY: Respirations not labored. Breath sounds within normal limits. CVS: Capillary refill less than 2 seconds. GI / : The patient has had nausea. Abdomen soft. Abdominal tenderness. Bowel sounds within normal limits. ( pt started bleeding vaginally while dry heaving). SKIN: Skin is warm and dry. 3 Visit Overview VITAL SIGNS First Vitals Last Vitals Temp 15:35 07/20/24 97.3 F Temp 20:07 07/20/24 BP 15:35 07/20/24 112/86 BP 20:07 07/20/24 HR 15:35 07/20/24 63 HR 20:07 07/20/24 RR 15:35 07/20/24 20 RR 20:07 07/20/24 16 O2 Sat 15:35 07/20/24 98% O2 Sat 20:07 07/20/24 Pain 15:35 07/20/24 10 Pain 20:07 07/20/24 9 ETCO2 15:35 07/20/24 ETCO2 20:07 07/20/24 GCS 15:35 07/20/24 GCS 20:07 07/20/24 RTS 15:35 07/20/24 RTS 20:07 07/20/24 PROCEDURES NURSING INTERVENTIONS LABS / STUDIES LABS / STUDIES ORDERED Beta-HCG, Quant Serum Blood Bank Order CBC w Diff CMP Urinalysis US OB<14WK Single Gestation US Pelvic US Pelvis Endo Vag CLINICAL IMPRESSION ACUTE NONTRAUMATIC PAIN IN THE PELVIS PROBABLE OVARIAN ECTOPIC ; POSITIVE TEST IN EMERGENCY DEPARTMENT 3 of 3 [facility] PREG SERUM QUANTon 4 HCG QUANTITATIVE 30344 mIU/mL High 0 - 6 [facility] Comment on above: Result Comment: Refe rence Range: Male: <5 Female: Non: <5 1 - 7 days : 5 - 50 1 - 2 weeks: 50 - 500 2 - 3 weeks: 100 - 5000 3 - 4 weeks: 500 - 10,000 4 - 5 weeks: 1000 - 50,000 5 - 6 weeks: 10,000 - 100,000 6 - 8 weeks: 15,000 - 200,000 2 - 3 months: 10,000 - 100,000 2ND TRIMESTER 3000-50,000 3RD TRIMESTER 1000-50,000 Performed By: #### 2 [id number] #### [facility],[address] [place] [address] OB ENDO VAGINALon 024 OB ENDO VAGINAL [place] [address] Patient: CANDIE ALCARAZ Phone#: : 1990 Age: 33 Gender: F Pt. Type: ER Account: [id number] Location: [facility] Ordering: HARVEY CHARLES Exam Date: 07/20/2024/16:49 Family Phys: JOYCE MONTOYA Charge Code: [id number] Physician: [place] Order #: [id number] Dose#: PROCEDURE: OB INITIAL <14 WEEKS ULTRASOUND, TRANSABDOMINAL ENDOVAGINAL COMPARISON: [facility], US, OB INITIAL <14 WEEKS, 02/08/2023, 9:13. INDICATIONS: First trimester pain, bleeding TECHNIQUE: Transabdominal and endovaginal pelvic ultrasound examinations were performed. FINDINGS: GESTATIONAL SAC: No intrauterine gestational sac. In the left adnexa there is a fluid collection with peripheral rim. It measures 2.5 x 3.3, presuming this represents a gestational sac this would proximally be a 6 week 5 day gestation. There is flow within the rim of this collection. POLE: Not visualize YOLK SAC: Not visualized UTERUS: Uterus measures 9.4 x 5.3 x 5.7 cm. At the lower uterine segment there is small amount of fluid. ADNEXAE/OVARIES: Normal. Right ovary measures 2.8 x 1.7 x 2.9 cm. Left ovary measures 3.2 x 1.7 x 2.6 cm CUL-DE-SAC: Small amount of free fluid in the pelvis. CLINICAL AGE: 6 weeks 5 days, estimated date of delivery 03/10/2025 SONOGRAPHIC AGE: Suspected ectopic gestational sac measures 6 weeks 5 days PLACENTA: Unable to visualize due to age. AMNIOTIC FLUID VOLUME: Normal for age. OTHER: Negative. CONCLUSION: 1. No intrauterine gestational sac. In the left adnexa there is a fluid collection with thick surrounding rim and blood flow highly concerning for an ectopic . Dictated by: Audra Allen MD on 07/20/2024 at 19:43 Approved by: Audra Allen MD on 07/20/2024 at 20:00 [facility] US OB INITIAL< 14 WEEKS; 1st GESTATIONon 07-20-2024 OB INITIAL< 14 WEEKS; 1st GESTATION [place] [address] Patient: CANDIE ALCARAZ Phone#: : 1990 Age: 33 Gender: F Pt. Type: ER Account: [id number] Location: [facility] Ordering: HARVEY CHARLES Exam Date: 07/20/2024/16:49 Family Phys: JOYCE MONTOYA Charge Code: [id number] Physician: [place] Order #: [id number] Dose#: PROCEDURE: OB INITIAL <14 WEEKS ULTRASOUND, TRANSABDOMINAL ENDOVAGINAL COMPARISON: [facility], US, OB INITIAL <14 WEEKS, 02/08/2023, 9:13. INDICATIONS: First trimester pain, bleeding TECHNIQUE: Transabdominal and endovaginal pelvic ultrasound examinations were performed. FINDINGS: GESTATIONAL SAC: No intrauterine gestational sac. In the left adnexa there is a fluid collection with peripheral rim. It measures 2.5 x 3.3, presuming this represents a gestational sac this would proximally be a 6 week 5 day gestation. There is flow within the rim of this collection. POLE: Not visualize YOLK SAC: Not visualized UTERUS: Uterus measures 9.4 x 5.3 x 5.7 cm. At the lower uterine segment there is small amount of fluid. ADNEXAE/OVARIES: Normal. Right ovary measures 2.8 x 1.7 x 2.9 cm. Left ovary measures 3.2 x 1.7 x 2.6 cm CUL-DE-SAC: Small amount of free fluid in the pelvis. CLINICAL AGE: 6 weeks 5 days, estimated date of delivery 03/10/2025 SONOGRAPHIC AGE: Suspected ectopic gestational sac measures 6 weeks 5 days PLACENTA: Unable to visualize due to age. AMNIOTIC FLUID VOLUME: Normal for age. OTHER: Negative. CONCLUSION: 1. No intrauterine gestational sac. In the left adnexa there is a fluid collection with thick surrounding rim and blood flow highly concerning for an ectopic . Dictated by: Audra Allen MD on 07/20/2024 at 19:43 Approved by: Audra Allen MD on 07/20/2024 at 20:00 [facility] CBC + DIFFon 07-16-2024 Baso # 0.02 x10EE3/UL Normal 0.00 - 0.10 [facility] Comment on above: Performed By: #### 2 [id number] #### [facility],[address] [place] [address] Basophils/100 WBC (Bld) 0.2 % Normal 0.0 - 2.0 [facility] Comment on above: Performed By: #### 2 86037 #### [facility],[address] [place] [address] CBC + DIFF Normal [facility] Comment on above: Result Comment: CBC- COMPLETE BLOOD COUNT Performed By: #### 2 [id number] #### [facility],[address] [place] [address] CELL COUNT 100 [facility] Comment on above: Performed By: #### 2 [id number] #### [facility],[address] [place] [address] EO 2.0 % Normal 0.0 - 7.0 [facility] Comment on above: Performed By: #### 2 96980 #### [facility],[address] [place], [place] [id number] EO # 0.18 x10EE3/UL Normal 0.00 - 0.50 [facility] Comment on above: Performed By: #### 2 84744 #### [facility],[address] [place] [address] Eosinophils/100 WBC (Bld) 2.5 % Normal 0.0 - 7.0 [facility] Comment on above: Performed By: #### 2 [id number] #### [facility],[address] [place], [place] [id number] Erythrocyte distribution width (RBC) [Ratio] 12.6 % Normal 12.0 - 15.6 [facility] Comment on above: Performed By: #### 2 [id number] #### [facility],[address] [place], [place] [id number] Hematocrit (Bld) [Volume fraction] 33.7 % Low 34.0 - 46.0 [facility] Comment on above: Performed By: #### 2 83892 #### [facility],[address] [place] [address] Hemoglobin (Bld) [Mass/Vol] 11.2 g/dL Low 12.0 - 16.0 [facility] Comment on above: Performed By: #### 2 61143 #### [facility],[address] [place] [address] Lymph # 1.57 x10EE3/UL Normal 0.80 - 2.80 [facility] Comment on above: Performed By: #### 2 18726 #### [facility],[address] [place] [address]698 Lymphocytes/100 WBC (Bld) 21.9 % Normal 20.0 - 45.0 [facility] Comment on above: Performed By: #### 2 [id number] #### [facility],[address] [place] [address] Lymphocytes/100 WBC (Bld) 23 % Normal 20 - 45 [facility] Comment on above: Performed By: #### 2 80463 #### [facility],[address] [place] [address] MANUAL DIFF SEE BELOW Normal [facility] Comment on above: Performed By: #### 2 [id number] #### [facility],[address] [place] [address] 81488 MCH (RBC) [Entitic mass] 31 pg Normal 27 - 33 [facility] Comment on above: Performed By: #### 2 [id number] #### [facility],[address] [place] [address] MCHC 33 X10 3 Normal 32 - 36 [facility] Comment on above: Performed By: #### 2 [id number] #### [facility],[address] [place] [address] 54099 MCV (RBC) [Entitic vol] 93 fL Normal 80 - 99 [facility] Comment on above: Performed By: #### 2 13543 #### [facility],[address] [place] [address] [place] # 0.36 x10EE3/UL Normal 0.20 - 1.00 [facility] Comment on above: Performed By: #### 2 [id number] #### [facility] [facility],[address] [place] [address] 88740 MONOS 4 % Normal 0 - 10 [facility] Comment on above: Performed By: #### 2 82612 #### [facility],[address] [place] [address] 57796 MONOS % 5.0 % Normal 0.0 - 10.0 [facility] Comment on above: Performed By: #### 2 15773 #### [facility],[address] [place] [address] 48012 Morphology Steffen (Bld) [Interp] REVIEWED Normal [facility] Comment on above: Performed By: #### 2 30133 #### [facility],[address] [place] [address] 24876 Neut # 5.07 x10EE3/UL Normal 1.50 - 7.10 [facility] Comment on above: Performed By: #### 2 09424 #### [facility],[address] [place] [address] 71311 Neutrophils/100 WBC (Bld) 70.4 % Normal 46.0 - 76.0 [facility] Comment on above: Performed By: #### 2 49692 #### [facility],[address] [place] [address] 01998 PLATELET 262 x10EE3/UL Normal 150 - 450 [facility] Comment on above: Performed By: #### 2 02023 #### [facility],[address] [place] [address] 34425 Platelet mean volume (Bld) [Entitic vol] 7.7 fL Normal 6.6 - 10.5 [facility] Comment on above: Result Comment: AUTO MATED DIFFERENTIAL Performed By: #### 2 05918 #### [facility],[address] [place] [address] 72161 RBC 3.63 x 10EE6/UL Low 4.10 - 5.30 [facility] Comment on above: Performed By: #### 2 80295 #### [facility],[address] [place] [address] 59166 SEGS 71 % Normal 46 - 76 [facility] Comment on above: Performed By: #### 2 86430 #### [facility],[address] [place] [address] 81949 WBC 7.2 x 10EE3/UL Normal 4.5 - 10.8 [facility] Comment on above: Performed By: #### 2 11193 #### [facility],[address] [place] [address] 05022 CMP with eGFRon 07-16-2024 AGE 33 years Normal [facility] Comment on above: Performed By: #### 2 68398 #### [facility],[address] [place] [address] 88466 Albumin [Mass/Vol] 3.5 g/dL Normal 3.4 - 5.0 [facility] Comment on above: Performed By: #### 2 74281 #### [facility],[address] [place] [address] 04921 Albumin/Globulin [Mass ratio] 1.3 {ratio} Normal 0.9 - 1.6 [facility] Comment on above: Performed By: #### 2 70033 #### [facility],[address] [place] [address] 70598 ALK PHOS 54 U/L Normal 46 - 116 [facility] Comment on above: Performed By: #### 2 51641 #### [facility],[address] [place] [address] 14604 ALT [Catalytic activity/Vol] 16 U/L Normal 16 - 63 [facility] Comment on above: Performed By: #### 2 42763 #### [facility],[address] [place] [address] 81373 Anion gap [Moles/Vol] 15 mmol/L Normal 10 - 20 [facility] Comment on above: Performed By: #### 2 82989 #### [facility],[address] [place] [address] 22078 AST [Catalytic activity/Vol] 10 U/L Low 13 - 39 [facility] Comment on above: Performed By: #### 2 02515 #### [facility],[address] [place] [address] 72251 B/C RATIO 16 ratio Normal 0 - 30 [facility] Comment on above: Performed By: #### 2 62382 #### [facility],[address] [place] [address] 84250 Bilirubin [Mass/Vol] 0.4 mg/dL Normal 0.2 - 1.0 [facility] Comment on above: Performed By: #### 2 36313 #### [facility],[address] [place] [address] 17879 Calcium [Mass/Vol] 8.5 mg/dL Normal 8.5 - 10.1 [facility] Comment on above: Performed By: #### 2 41719 #### [facility],[address] [place] [address] 12347 Chloride [Moles/Vol] 105 mmol/L Normal 98 - 107 [facility] Comment on above: Performed By: #### 2 13547 #### [facility],[address] [place] [address] 64685 CMP with eGFR Normal [facility] Comment on above: Result Comment: COMP REHENSIVE METABOLIC PANEL Performed By: #### 2 95328 #### [facility],[address] [place] [address] 00563 CO2 [Moles/Vol] 24.1 mmol/L Normal 21.0 - 32.0 [facility] Comment on above: Performed By: #### 2 87346 #### [facility],[address] [place] [address] 60813 Creatinine [Mass/Vol] 0.74 mg/dL Normal 0.55 - 1.02 [facility] Comment on above: Performed By: #### 2 05547 #### [facility],[address] [place] [address] 64429 eGFR 90 ML/MINUTE Normal 60 - 999 [facility] Comment on above: Performed By: #### 2 17288 #### [facility],[address] [place] [address] 65560 eGFR(AA) 110 ML/MINUTE Normal 60 - 999 [facility] Comment on above: Result Comment: ACCO RDING TO THE NATIONAL KIDNEY DISEASE EDUCATION PROGRAM(NKDE), A NORMAL eGFR IS A VALUE GREATER THAN OR EQUAL TO 60 ML/MIN/1.73 SQ METERS. CHRONIC KIDNEY DISEASE: <60mL/MIN/1.73 SQ METERS KIDNEY FAILURE: <15mL/MIN/1.73 SQ METERS THIS TEST SHOULD ONLY BE USED FOR PATIENTS 18 YEARS OF AGE AND OLDER. Performed By: #### 2 36397 #### [facility],[address] [place] [address] 55331 Globulin (S) [Mass/Vol] 2.7 g/dL Normal 1.5 - 3.8 [facility] Comment on above: Performed By: #### 2 04944 #### [address] [address] Glucose [Mass/Vol] 85 mg/dL Normal 74 - 106 [facility] Comment on above: Performed By: #### 2 06829 #### [facility],[address] [place] [address] 79723 Potassium [Moles/Vol] 3.9 mmol/L Normal 3.5 - 5.1 [facility] Comment on above: Performed By: #### 2 41305 #### [address] [address] Protein [Mass/Vol] 6.2 g/dL Low 6.4 - 8.2 [facility] Comment on above: Performed By: #### 2 66247 #### [facility],[address] [place] [address] 39081 Sodium [Moles/Vol] 140 mmol/L Normal 136 - 145 [facility] Comment on above: Performed By: #### 2 57362 #### [facility],[address] [place] [address] 93886 Urea nitrogen [Mass/Vol] 12 mg/dL Normal 7 - 18 [facility] Comment on above: Performed By: #### 2 67976 #### [facility],[address] [place] [address] 10005 FACILITY CODING SUMMARYon FACILITY CODING SUMMARY Facility Coding Facility Coding Summary [address] [address] [id number] 07/16/2024 Patient: CANDEI ALCARAZ Sex: Female : 1990 Age: 33y Providers: Vega Rosado D.O. DIAGNOSTIC WORKUP Chief Complaint VOMITING. -- Vega Rosado D.O. Principal Diagnosis Moderate hyperemesis gravidarum less than 21 weeks with volume depletion and dehydration. -- Vega Rosado D.O. Vomiting with nausea, dehydration and volume depletion. -- Vega Rosado D.O. ICD-10 Codes E86.0: Dehydration E86.9: Volume depletion, unspecified O21.1: Hyperemesis gravidarum with metabolic disturbance R11.2: Nausea with vomiting, unspecified Z3A.21: 21 weeks gestation of PROCEDURES Procedures from Providers: Procedures from Nurses/Facility: IV Hydration (CPT: 62987) 1 of 2 Facility Coding IV Push Zofran IVP (CPT: 62032) SUPPLIES ELEVEL 77667-19 This is a partial abstract of information documented in the full record. Assistant Distribution Manager must use independent judgment in selecting codes. CPT copyright 2022 [employer]. All Rights Reserved. 2 of 2 Normal [facility] MED ADMINISTRATION DETAILon 07-16-2024 MED ADMINISTRATION DETAIL Lead C Developer Medication Administration Record [address] [address] [id number] 07/16/2024 Patient: CANDIE ALCARAZ Sex: Female : 1990 Age: 33y MEASUREMENTS: Wt: 63.5 kg, Ht/Vinicius: 63.0 in, BMI: 24.80 ALLERGIES: No known drug allergies Medication Ordered Medication Administration Date/Time IV NS 0.9 % 1000 12:18 07/16 IV NS 0.9 % 1000 mL started in bag#1 1000 mL at Started mL (NOW x1) 999 mL/hr via Site# 1. Allergies verified and confirmed 5 rights. Via 12:18 07/16/2024 IV pump. IV patency established. IV site checked: no pain, redness, Christy Wagner R.N. or swelling. IV flushed thoroughly pre-medication administration. Stopped Information reviewed with patient including reason for taking this 13:31 07/16/2024 medication. - 12:19 Nancy Tinajero R.N. Scanned 13:07/16 Medication Discontinued: bag #1 completed. Total amount infused: 1000 mL. IV patency established. IV site checked: no pain, redness, or swelling. IV flushed thoroughly post-medication administration. - 13:31 Christy Wagner R.N. Zofran IVP 4 mg 12:14 07/16 Zofran IVP 4 mg given via Site# 1. Allergies verified Given (NOW x1) and confirmed 5 rights. IV patency established. IV site checked: no 12:14 07/16/2024 pain, redness, or swelling. IV flushed thoroughly pre-medication Christy Wagner R.N. administration. IVP given by nurse. Information reviewed with Scanned patient including reason for taking this medication. - 12:14 Christy Wagner R.N. Tylenol PO 650 mg 12:15 07/16 Tylenol PO 650 mg given. Allergies verified and Given (NOW x1) confirmed 5 rights. Information reviewed with patient including 12:15 07/16/2024 reason for taking this medication. - 12:15 Nancy Tinajero R.N. Scanned 1 of 2 Lead C Developer 2 of 2 Normal [facility] NURSES CLINICAL REPORT (NOTE S)on 07-16-2024 NURSES CLINICAL REPORT (NOTES) Nurse Narrative Nurse Clinical [address] [address] [id number] 07/16/2024 Patient: CANDIE ALCARAZ Sex: Female : 1990 Age: 33y Disposition: Discharge to Home Disposition Decision Time: 14:04 07/16/2024 Departure Time: 14:28 07/16/2024 TRIAGE Arrived by private vehicle. Historian: patient. Patient has a primary care physician. Primary physician (Jennie Carter). Triage time: 11:12 07/16/2024. Acuity: LEVEL 3. Chief Complaint: ABDOMINAL PAIN and (LLQ pain, 6 weeks , continuous vaginal spotting). This started today. Onset was abrupt. (1 hours ago). ( pt also offers on progesterone). SEPSIS SCREEN: NEGATIVE. SIRS criteria negative. No possible sources of infection. -- 11:07/16/24 EDT Christy Lizama R.N. 11:07/16/24. BP: 102/73 MAP: 83. HR: 88. RR: 16. O2 saturation: 100% Temperature: 98 F. Pain level now 8/10. Describes the pain as (shooting). Intermittent. -- 11:07/16/24 EDT Christy Lizama R.N. Measurements: 11:07/16/24 Wt: 63.5 kg, Ht/Vinicius: 63.0 in, BMI: 24.80 -- 1107/16/24 EDT Christy Lizama R.N. Medications: unable to obtain home medications -- 11:07/16/24 EDT Christy Lizama R.N. ondansetron HCl 4 mg tablet: 1 tablet every six to eight hours for nausea/vomiting. -- 14:07/16/24 EDT Vega Rosado D.O. 1 of 4 Nurse Narrative Allergies: no known drug allergies -- 11:07/16/24 IFTIKHART Christy Lizama R.N. Problems: no known problem -- 11:07/16/24 IFTIKHART Christy Lizama R.N. ADDITIONAL SURGERIES: Knee Surgery. left -- 1107/16/24 IFTIKHART Christy Lizama R.N. Dilatation Curettage -- 07/16/24 IFTIKHART Christy Lizama R.N. History 11:12 07/16/24. PAST MEDICAL HX: Immunizations: up-to-date. Last normal menstrual period- . 5. Para 1. Abortions 4. Currently . SOCIAL HX: Current every day heavy tobacco smoker (cigarette)- less than 1 pack per day. No alcohol use or drug use. The patient has not traveled outside the [place] Infectious disease exposure: No infectious disease exposure. ABUSE ASSESSMENT: The patient answered yes to the question(s) Do you feel safe in your home? and no to the question(s) Are you afraid to go home?. Abuse denied. No suspicion of abuse. SELF HARM ASSESSMENT: Self harm assessment was performed. The patient answered no to the question(s) Have you recently felt down, depressed, or hopeless? and Do you have thoughts of harming or killing yourself?. FALL RISK ASSESSMENT: Fall risk assessment completed. No risk factors identified. -- 11:07/16/24 EDT Christy Lizama R.N. Interventions 11:12 07/16/24. Advanced care plan discussed with patient (Full Code). -- 11:07/16/24 EDT Christy Lizama R.N. 2 of 4 Nurse Narrative PHYSICAL ASSESSMENT 12:00 07/16/24. ( Pt was at work at 1030 pt states she was sitting and had a stabbing sharp pain in her LLQ. Took her breath away and she wasn't able to stand up due to pain.). GENERAL / NEURO / PSYCH: Alert. Oriented X 4. Appears in pain. GI / : Abdomen soft. Abdominal tenderness in the left lower quadrant. Bowel sounds within normal limits. Scant vaginal bleeding present (just after wiping). Stool color normal. -- 12:05 07/16/24 EDT Christy Wagner R.N. 12:04 07/16/24. Pain level now 5/10. Describes the pain as sharp and (stabbing). Abrupt in onset; constant. (Positioning helps to reduce pain). -- 12:07/16/24 IFTIKHART Christy Wagner R.N. 12:07 07/16/24. 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 Pt is approx 6 weeks .). -- 12:07/16/24 EDT Christy Wagner R.N. NURSING PROGRESS NOTES 12:07 07/16/24. Site #1 started via IV in the right antecubital space with an 18g angiocath with aseptic technique and good blood return; 1 attempt. Blood drawn: rainbow set tube(s). Labeled in the presence of the patient and sent to the lab. Saline lock flushed with 5 mL saline. -- 12:14 07/16/24 EDT Christy Wagner R.N. 12:14 07/16/24. Zofran IVP 4 mg given via Site# 1. Allergies verified and confirmed 5 rights. IV patency established. IV site checked: no pain, redness, or swelling. IV flushed thoroughly pre-medication administration. IVP given by nurse. Information reviewed with patient including reason for taking this medication. -- 12:14 07/16/24 ULISES Wagner R.N. 12:15 07/16/24. Tylenol PO 650 mg given. Allergies verified and confirmed 5 rights. Information reviewed with patient including reason for taking this medication. -- 12:15 07/16/24 EDT Christy Wagner R.N. 12:18 07/16/24. IV NS 0.9 % 1000 mL started in bag#1 1000 mL at 999 mL/hr via Site# 1. Allergies verified and confirmed 5 rights. Via IV pump. IV patency established. IV site checked: no pain, redness, or swelling. IV flushed thoroughly pre-medication administration. Information reviewed with patient in (more content not included)... Normal [facility] ORDER SHEET (CPOE ONLY)on ORDER SHEET (CPOE ONLY) Order Sheet Order Sheet [address] [place] [address] [id number] 07/16/2024 Patient: CANDIE LACARAZ Sex: Female : 1990 Age: 33y MEASUREMENTS: Wt: 63.5 kg, Ht/Vinicius: 63.0 in, BMI: 24.80 ALLERGIES: No known drug allergies MEDICATION/IV/DRIP/FLUI D ORDERS Order Description Priority Entered Acknowledged Completed IV NS 0.9 %1000 mL (NOW x1) 11:49 07/16/2024 12:19 Vega Rosado, 07/16/2024 Florentino Wagner R.N. Zofran IVP4 mg (NOW x1) 11:49 07/16/2024 12:14 Vega Rosado, 07/16/2024 Florentino Wagner R.N. Tylenol PO650 mg (NOW x1) 11:49 07/16/2024 12:15 Vega Rosado, 07/16/2024 Florentino Wagner R.N. LAB ORDERS Order Description Priority Entered Acknowledged Collected Completed CBC w Diff Stat Stat 11:49 07/16/2024 12:07 07/16/2024 Christy Patino, 1 of 2 Order Sheet Florentino Young. CMP Stat Stat 11:49 07/16/2024 12:07 07/16/2024 Christy Patino D.O. RErvin Urinalysis Stat Stat 11:49 07/16/2024 12:07 07/16/2024 Christy Patino D.O. RErvin HCG, Quant Serum Stat Stat 11:49 07/16/2024 12:07 07/16/2024 Christy Patino D.O. RErvin DIAGNOSTIC STUDY ORDERS Order Description Priority Entered Acknowledged Completed STAFF ORDERS Order Description Priority Entered Acknowledged Collected Completed IV Saline Lock 11:49 07/16/2024 12:07 07/16/2024 Christy Patino D.O. RErvin [Electronically signed by Vega Rosado D.O. (07/16/2024 15:01 EDT)] 2 of 2 Normal [facility] PHYS CLINICAL REPORT AND ADD NORRISon 07-16-2024 PHYS CLINICAL REPORT AND ADDEN Narrative Physician Clinical [address] [address] [id number] 07/16/2024 Patient: CANDIE ALCARAZ Sex: Female : 1990 Age: 33y Disposition: Discharge to Home Disposition Decision Time: 14:04 07/16/2024 Departure Time: 14:28 07/16/2024 Measurements Wt: 63.5 kg, Ht/Vinicius: 63.0 in, BMI: 24.80 Initial Vital Sign Measured Time BP MAP HR RR O2Sat ETCO2 Temp Pain GCS RTS 11:20 07/16/2024 102/73 83 88 16 100% 98.0 F 8 Time Seen: 11:42 07/16/2024. Arrived- By private vehicle. Historian- patient. HISTORY OF PRESENT ILLNESS Chief Complaint: VOMITING. The patient has had nausea and vomiting. This started yesterday and is still present. The illness is described as moderate. (Patient is approximately 6 weeks . She complains of constant sharp pain actually started with nausea and vomiting yesterday and persists then about an hour prior to arrival she started having pain worse with movements better when she puts her legs up. Says pain is 8/10). REVIEW OF SYSTEMS 1 of 11 Narrative SKIN: No skin rash or jaundice. NEUROLOGICAL: No headache or dizziness. : No difficulty with urination. CONSTITUTIONAL: No fever. RESPIRATORY: No cough. PAST HISTORY no known problem Surgeries: Dilatation Curettage Knee Surgery: Body Site left Medications: unable to obtain home medications Allergies: no known drug allergies SOCIAL HISTORY Smoker- current status unknown. No alcohol use. FAMILY HISTORY Negative. ADDITIONAL NOTES The nursing notes have been reviewed. PHYSICAL EXAM Appearance: Alert. Oriented X3. No acute distress. Eyes: Eyes normal inspection. ENT: Ears normal. Nose normal. Neck: Normal inspection. Neck supple. CVS: Normal heart rate and rhythm. Heart sounds normal. Respiratory: No respiratory distress. Painless inspiration. Abdomen: Soft and nontender. No mass. 2 of 11 Narrative Back: Normal inspection. Skin: Skin warm. Normal skin color. No rash. Normal skin turgor. Extremities: Extremities exhibit normal ROM. Neuro: Oriented X 3. No motor deficit. No sensory deficit. LABS, X-RAYS, AND EKG Laboratory Tests: CBC + DIFF Final AMI: 07/16/2024 12:07:00 EDT MsgRcvd: 07/16/2024 13:04 EDT Lab Test Result Reference Status Received Comments 07/16/2024 13:04 CBC-COMPLETE CBC + DIFF Final EDT BLOOD COUNT 07/16/2024 13:04 WBC 7.2 x 10/UL 4.5 - 10.8 Final EDT 3.63 x 10/UL 07/16/2024 13:04 RBC 4.10 - 5.30 Final Below low normal EDT 11.2 g/dl 07/16/2024 13:04 HEMOGLOBIN 12.0 - 16.0 Final Below low normal EDT 33.7 % 07/16/2024 13:04 HEMATOCRIT 34.0 - 46.0 Final Below low normal EDT 07/16/2024 13:04 MCV 93 fl 80 - 99 Final EDT 07/16/2024 13:04 MCH 31 pg 27 - 33 Final EDT 07/16/2024 13:04 MCHC 33 X10 3 32 - 36 Final EDT 07/16/2024 13:04 RDW/CV 12.6 % 12.0 - 15.6 Final EDT 3 of 11 Narrative 07/16/2024 13:04 PLATELET 262 x10/UL 150 - 450 Final EDT 07/16/2024 13:04 AUTOMATED MPV 7.7 fl 6.6 - 10.5 Final EDT DIFFERENTIAL 07/16/2024 13:04 NEUT % 70.4 % 46.0 - 76.0 Final EDT 07/16/2024 13:04 LYMPH % 21.9 % 20.0 - 45.0 Final EDT 07/16/2024 13:04 MONOS % 5.0 % 0.0 - 10.0 Final EDT 07/16/2024 13:04 EO % 2.5 % 0.0 - 7.0 Final EDT 07/16/2024 13:04 BASO % 0.2 % 0.0 - 2.0 Final EDT 07/16/2024 13:04 Lymph # 1.57 x10/UL 0.80 - 2.80 Final EDT 07/16/2024 13:04 Neut # 5.07 x10/UL 1.50 - 7.10 Final EDT 07/16/2024 13:04 [place] # 0.36 x10/UL 0.20 - 1.00 Final EDT 07/16/2024 13:04 EO # 0.18 x10/UL 0.00 - 0.50 Final EDT 07/16/2024 13:04 Baso # 0.02 x10/UL 0.00 - 0.10 Final EDT 07/16/2024 13:04 MANUAL DIFF SEE BELOW Final EDT 07/16/2024 13:04 SEGS 71 % 46 - 76 Final EDT 4 of 11 Narrative 07/16/2024 13:04 LYMPH 23 % 20 - 45 Final EDT 07/16/2024 13:04 MONOS 4% 0 - 10 Final EDT 07/16/2024 13:04 EO 2.0 % 0.0 - 7.0 Final EDT 07/16/2024 13:04 CELL COUNT 100 Final EDT 07/16/2024 13:04 MORPHOLOGY REVIEWED Final EDT URINALYSIS Final AMI: 07/16/2024 12:07:00 EDT MsgRcvd: 07/16/2024 12:49 EDT Lab Test Result Reference Status Received Comments 07/16/2024 12:49 URINALYSIS Final URINALYSIS EDT 07/16/2024 12:49 Specimen Type UNSPECIFIED Final EDT NORMAL: 07/16/2024 12:49 Color yellow Final YELLOW EDT NORMAL: 07/16/2024 12:49 Clarity sl.cloudy Final CLEAR EDT NORMAL: 07/16/2024 12:49 ph 7 Final 5.0-8.0 EDT 15 NORMAL: 07/16/2024 12:49 Protein Final Abnormal NEGATIVE EDT NORMAL: 07/16/2024 12:49 Glucose NORM Final NORMAL EDT of Narrative NORMAL: 07/16/2024 12:49 Ketone NEG Final NEGATIVE EDT NORMAL: 07/16/2024 12:49 Bilirubin NEG Final NEGATIVE E (more content not included)... Normal [facility] PHYS CODING SUMMARY AIR QUALITY CONSULTANT AB Levine 07-16-2024 PHYS CODING SUMMARY AIR QUALITY CONSULTANT ABST Coding Summary Coding Summary [address] [place] [address] [id number] 07/16/2024 Patient: CANDIE ALCARAZ Sex: Female : 1990 Age: 33y ICD-10 Codes R11.2: Nausea with vomiting, unspecified O21.1: Hyperemesis gravidarum with metabolic disturbance Z3A.21: 21 weeks gestation of E86.9: Volume depletion, unspecified E86.0: Dehydration This is a partial abstract of information documented in the full record. Assistant Distribution Manager must use independent judgment in selecting codes. CPT copyright 2022 [employer]. All Rights Reserved. 1 of 1 Normal [facility] PREG SERUM QUANTon 4 HCG QUANTITATIVE 04490 mIU/mL High 0 - 6 [facility] Comment on above: Result Comment: Refe rence Range: Male: <5 Female: Non: <5 1 - 7 days : 5 - 50 1 - 2 weeks: 50 - 500 2 - 3 weeks: 100 - 5000 3 - 4 weeks: 500 - 10,000 4 - 5 weeks: 1000 - 50,000 5 - 6 weeks: 10,000 - 100,000 6 - 8 weeks: 15,000 - 200,000 2 - 3 months: 10,000 - 100,000 2ND TRIMESTER 3000-50,000 3RD TRIMESTER 1000-50,000 Performed By: #### 2 07721 #### [facility],[address] [place] [address] 07-16-2024 [facility] [place] [address] [id number] 07/16/2024 Patient: CANDIE ALCARAZ Sex: Female : 1990 Age: 33y Item Facility Professional Category Description Code Code Quantity Fee Total Nurse/E/M EMERGENCY 691255 1 $0.00 $0.00 DEPARTMENT VISIT HIGH/URGENT SEVERITY (10699-03) Nurse/IV/IM/Infusions Hydration 663900 1 $0.00 $0.00 additional hour (86955) Nurse/IV/IM/Infusions IVP initial 046300 1 $0.00 $0.00 (46794) Grand Total $0.00 Providers Vega Rosado D.O. Chief Complaint VOMITING. 1 of 2 [facility] Principal Diagnosis Vomiting with nausea, dehydration and volume depletion. Moderate hyperemesis gravidarum less than 21 weeks with volume depletion and dehydration. ICD-10 Codes R11.2: Nausea with vomiting, unspecified O21.1: Hyperemesis gravidarum with metabolic disturbance Z3A.21: 21 weeks gestation of E86.9: Volume depletion, unspecified E86.0: Dehydration 2 of 2 Normal [facility] URINALYSISon 07-16-2024 Amorphous NONE Normal [facility] Comment on above: Performed By: #### 2 10441 #### [facility],[address] [place] [address] 46482 Bacteria 1+ Normal [facility] Comment on above: Performed By: #### 2 73913 #### [facility],[address] [place] [address] 76256 Bilirubin Ql (U) Negative Normal NORMAL: NEGATIVE [facility] Comment on above: Performed By: #### 2 25795 #### [facility],[address] [place] [address] 42539 Casts NONE Normal [facility] Comment on above: Performed By: #### 2 79911 #### [facility],[address] [place] [address] 29127 Clarity (U) sl.cloudy Normal NORMAL: CLEAR [facility] Comment on above: Performed By: #### 2 68493 #### [facility],[address] [place] [address] 19753 Color (U) yellow Normal NORMAL: YELLOW [facility] Comment on above: Performed By: #### 2 97454 #### [facility],[address] [place] [address] 64887 Crystals LM Nom (Urine sed) NONE Normal [facility] Comment on above: Performed By: #### 2 59493 #### [facility],[address] [place] [address] 94414 Epi Cells MODERATE Normal [facility] Comment on above: Performed By: #### 2 32286 #### [facility],[address] [place] [address] 62544 Glucose Ql (U) NORM Normal NORMAL: NORMAL [facility] Comment on above: Performed By: #### 2 77193 #### [facility],[address] [place] [address] 26719 Hemoglobin Ql (U) 250 Abnormal NORMAL: NEGATIVE [facility] Comment on above: Performed By: #### 2 69814 #### [facility],[address] [place] [address] 56964 Ketone Negative Normal NORMAL: NEGATIVE [facility] Comment on above: Performed By: #### 2 67926 #### [facility],[address] [place] [address] 53741 Leukocytes 25 Abnormal NORMAL: NEGATIVE [facility] Comment on above: Performed By: #### 2 41466 #### [facility],[address] [place] [address] 48012 Mucous 2+ Normal [facility] Comment on above: Performed By: #### 2 29065 #### [facility],[address] [place] [address] [id number] Nitrite Ql (U) Negative Normal NORMAL: NEGATIVE [facility] Comment on above: Performed By: #### 2 [id number] #### [facility],[address] [place] [address] 48821 pH (U) 7 [pH] Normal NORMAL: 5.0-8.0 [facility] Comment on above: Performed By: #### 2 [id number] #### [facility],[address] [place] [address] 17343 Protein Ql (U) 15 Abnormal NORMAL: NEGATIVE [facility] Comment on above: Performed By: #### 2 [id number] #### [facility],[address] [place] [address] 97288 Rbc 5-10 Normal 0-3/hpf [facility] Comment on above: Performed By: #### 2 [id number] #### [facility],[address] [place] [address] 22653 Sp Percival 1.010 Normal NORMAL: 1.010-1.030 [facility] Comment on above: Performed By: #### 2 [id number] #### [facility],[address] [place] [address] 11072 Specimen Type UNSPECIFIED Normal [facility] Comment on above: Performed By: #### 2 [id number] #### [facility],[address] [place] [address] 24168 Urinalysis dipstick W Reflex Microscopic panel (U) SEE BELOW Normal [facility] Comment on above: Result Comment: MICR OSCOPIC Performed By: #### 2 [id number] #### [facility],[address] [place] [address] 61326 Urobilinog NORM Normal NORMAL: NORMAL [facility] Comment on above: Performed By: #### 2 [id number] #### [facility],[address] [place] [address] 35577 Wbc 1-5 Normal 0-5/hpf [facility] Comment on above: Performed By: #### 2 [id number] #### [facility],[address] [place] [address] 34550 Yeast NONE Normal [facility] Comment on above: Performed By: #### 2 [id number] #### [facility],[address] [place], [place] [id number] VISIT SUMMARYon 07-16-2024 VISIT SUMMARY [place] [address] [id number] 07/16/2024 Patient: CANDIE ALCARAZ Sex: Female : 1990 Age: 33y 07/16/2024 03:01 PM EDT ED Arrival:11:16 07/16/2024 EDT Status: Recent Travel:no Language:eng Adv Directive: Isolation Status: Ethnicity:N Fall Risk:no risk Infectious Disease Exposure:no Measurements:5'3 / 160.0 Self-Harm Status:risk Sepsis Screen:negative cm 140.0 lb / 63.5 kg Chief Complaint:ABDOMINAL PAIN, (1 hours ago), (Crystal Uptain), (LLQ pain, 6 weeks , continuous vaginal spotting), and (pt also offers on progesterone) ALLERGIES No Known Drug Allergies HOME MEDICATIONS Unable To Obtain 1 of 3 Visit Overview PAST MEDICAL HISTORY / PROBLEMS Currently Immunizations: up-to-date Last normal menstrual period- . 5. Para 1. Abortions 4 None PAST SURGICAL HISTORY Dilatation Curettage Knee Surgery. left SOCIAL HISTORY Smoking status: Yes Alcohol use: No Drug use: No ED COURSE MEDICATIONS GIVEN IN EMERGENCY DEPARTMENT 12:14 07/16/24 Zofran IVP 4 mg 12:15 07/16/24 Tylenol PO 650 mg 12:18 07/16/24 IV NS 0.9 % 1000 mL 999 mL/hr IV SITE INFORMATION INTAKE OUTPUT REASSESMENT (most recent) 12:07 07/16/24. 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 Pt is approx 6 weeks .). VITAL SIGNS First Vitals Last Vitals Temp 11:20 07/16/24 98.0 F Temp 12:04 07/16/24 BP 11:20 07/16/24 102/73 BP 12:04 07/16/24 2 of 3 Visit Overview First Vitals Last Vitals HR 11:20 07/16/24 88 HR 12:04 07/16/24 RR 11:20 07/16/24 16 RR 12:04 07/16/24 O2 Sat 11:20 07/16/24 100% O2 Sat 12:04 07/16/24 Pain 11:20 07/16/24 8 Pain 12:04 07/16/24 5 ETCO2 11:20 07/16/24 ETCO2 12:04 07/16/24 GCS 11:20 07/16/24 GCS 12:04 07/16/24 RTS 11:20 07/16/24 RTS 12:04 07/16/24 PROCEDURES NURSING INTERVENTIONS LABS / STUDIES LABS / STUDIES ORDERED CBC w Diff CMP HCG, Quant Serum Urinalysis CLINICAL IMPRESSION MODERATE HYPEREMESIS GRAVIDARUM LESS THAN 21 WEEKS WITH VOLUME DEPLETION AND DEHYDRATION VOMITING WITH NAUSEA, DEHYDRATION AND VOLUME DEPLETION 3 of 3 Normal [facility] HCG, TOTAL, QNon 07-15-2024 [place] [address] m[IU]/mL [facility] Comment on above: Result Comment: Refe rence Range Non or premenopausal <5 Postmenopausal <10 Values from different assay methods may vary. The use of this assay to monitor or to diagnose patients with cancer or any condition unrelated to has not been cleared or approved by the FDA or the design printer balloon of the assay. Performed By: #### 8 [id number] #### [facility] [address], [address] [place] [address] [employer] Member: Ambrosio Nicole MD Laboratory - Chemistry and C hemistry - challengeon 07-14-20[place] [address] m[IU]/mL Abnormal [facility] HCG, TOTAL, QNon 07-08-2024 HCG Qn 2229 m[IU]/mL High [facility] Comment on above: Result Comment: Veri fied by repeat analysis. Reference Range Non or premenopausal <5 Postmenopausal <10 Values from different assay methods may vary. The use of this assay to monitor or to diagnose patients with cancer or any condition unrelated to has not been cleared or approved by the FDA or the design printer balloon of the assay. Performed By: #### 8 396, 745 #### [facility] [address], [address] [place] [address] [employer] Member: Ambrosio Nicole MD PROGESTERONEon 07-08-2024 PROGESTERONE 14.5 ng/mL Normal [facility] Comment on above: Result Comment: Refe rence Ranges Female Follicular Phase < 1.0 Luteal Phase 2.6-21.5 Post menopausal < 0.5 1st Trimester 4.1-34.0 2nd Trimester 24.0-76.0 3rd Trimester 52.0-302.0 Performed By: #### 8 396, 745 #### [facility] [address], [address] [place] [address] [employer] Member: Ambrosio Nciole MD Laboratory - Chemistry and C hemistry - challengeon 07-07-2024 HCG Qn 2229 m[IU]/mL Abnormal [facility] [employer], [facility].; [facility] No Panel Informationon 07-07 PROGESTERONE 14.5 ng/mL Normal [facility], [facility] [place] [employer] [facility], [facility] CULTURE, URINE, ROUTINEon CULTURE, URINE, ROUTINE SEE NOTE Abnormal [facility] Comment on above: Result Comment: CULTURE, URINE, ROUTINE Micro Number: [id number] Test Status: Final Specimen Source: Urine Specimen Quality: Adequate Result: Greater than 100,000 CFU/mL of Escherichia coli E.coli INT DANIELA AMOX/CLAVULANATE S 8 AMPICILLIN R >=32 AMP/SULBACTAM I 16 CEFAZOLIN NR <=4 2 CEFEPIME S <=1 CEFTAZIDIME S <=1 CEFTRIAXONE S <=1 CIPROFLOXACIN S <=0.25 GENTAMICIN S <=1 IMIPENEM S <=0.25 LEVOFLOXACIN S <=0.12 NITROFURANTOIN S 32 PIP/TAZOBACTAM S <=4 TOBRAMYCIN S <=1 TRIMETHOPRIM/SULFA R >=320 S=Susceptible I=Intermediate R=Resistant * = Not Tested NR = Not Reported NN = See Therapy Comments THERAPY COMMENTS Note 1: For infections other than uncomplicated UTI caused by E. coli, K. pneumoniae or P. mirabilis: Cefazolin is resistant if DANIELA > or = 8 mcg/mL. (Distinguishing susceptible versus intermediate for isolates with DANIELA < or = 4 mcg/mL requires additional testing.) Note 2: For uncomplicated UTI caused by E. coli, K. pneumoniae or P. mirabilis: Cefazolin is susceptible if DANIELA <32 mcg/mL and predicts susceptible to the oral agents cefaclor, cefdinir, cefpodoxime, cefprozil, cefuroxime, cephalexin and loracarbef. Performed By: #### 3 95 #### [facility] [address], [address] [place] [address] [employer] Member: Ambrosio Nicole MD Laboratory - Chemistry and C hemistry - challengeon 08-27-2023 Bilirubin Ql (U) Negative Normal [facility] [employer]. Ketones Ql (U) Trace Normal [facility] [employer]. pH (U) 5.5 [pH] Normal [employer]. Specific gravity (U) [Rel density] 1.025 Normal [employer].; [employer]. Urobilinogen Qn (U) 0.2 mg/dL Normal [facility].; [employer]. Laboratory - Hematology and Cell countson 08-27-2023 Hemoglobin Ql (U) Trace, hemolyzed Abnormal [facility].; [employer]. Laboratory - Specimen inform ationon 08-27-2023 Appearance (U) Cloudy Abnormal [facility] [employer].; [employer]. Color (U) Dark Yellow Normal [facility].; [employer]. Laboratory - Urinalysison Glucose Test strip (U) [Mass/Vol] Negative Normal [facility] [employer] [facility].; [employer]. Leukocyte esterase Test strip Ql (U) Small Abnormal [facility].; [employer]. Nitrite Ql (U) Positive Abnormal [facility] [employer].; [employer]. Protein Ql (U) Negative Normal [facility].; [employer]. No Panel Informationon 08-27 CULTURE, URINE, ROUTINE SEE NOTE Abnormal [facility].; [employer]. Laboratory - Chemistry and C hemistry - challengeon 05-29-2023 HCG Qn 271 m[IU]/mL Abnormal [facility] [employer]. Laboratory - Chemistry and C hemistry - challengeon 05-14-2023 Bilirubin Ql (U) small Abnormal [facility] [employer].; [employer]. Ketones Ql (U) Negative Normal [facility].; [employer]. pH (U) 5.5 [pH] Normal [place] [employer] [facility].; [employer]. Specific gravity (U) [Rel density] 1.025 Normal [place] [employer] [facility].; [employer]. Urobilinogen Qn (U) 1.0 mg/dL Normal [facility].; [employer]. Laboratory - Hematology and Cell countson 05-14-2023 Hemoglobin Ql (U) large Abnormal [facility].; [place] [employer]. Laboratory - Specimen inform ationon 05-14-2023 Appearance (U) cloudy Abnormal [facility].; [place] [employer]. Color (U) Dark Yellow Normal [facility].; [employer]. Laboratory - Urinalysison Glucose Test strip (U) [Mass/Vol] Negative Normal [facility].; [employer]. Leukocyte esterase Test strip Ql (U) Negative Normal [facility].; [employer]. Nitrite Ql (U) Negative Normal [facility].; [employer]. Protein Ql (U) Negative Normal [facility].; [employer]. No Panel Informationon 05-14 CULTURE, URINE, ROUTINE SEE NOTE Normal [facility].; [employer]. Laboratory - Chemistry and C hemistry - challengeon 03-14-2023 Bilirubin Ql (U) Negative Normal [facility].; [employer]. Ketones Ql (U) 40 mg/dL Abnormal [facility].; [place] [employer]. pH (U) 6.0 [pH] Normal [facility].; [place] [employer]. Specific gravity (U) [Rel density] 1.030 Abnormal [facility].; [employer]. Urobilinogen Qn (U) 1.0 mg/dL Normal [facility].; [employer]. Laboratory - Hematology and Cell countson 03-14-2023 Hemoglobin Ql (U) small Abnormal [facility].; [place] [employer]. Laboratory - Specimen inform ationon 03-14-2023 Appearance (U) clear Normal [facility] [employer].; [employer]. Color (U) yellow Normal [place] [employer].; [employer]. Laboratory - Urinalysison Glucose Test strip (U) [Mass/Vol] Negative Normal [facility].; [facility] Leukocyte esterase Test strip Ql (U) small Abnormal [facility].; [facility] Nitrite Ql (U) Positive Abnormal [facility]; [facility] Protein Ql (U) 30 mg/dL Abnormal [facility].; [facility]. Laboratory - Chemistry and C hemistry - challengeon 02-19-2023 HCG Qn 175 m[IU]/mL Abnormal [facility].; [facility]. Laboratory - Chemistry and C hemistry - challengeon 02-12-2023 HCG Qn 271 m[IU]/mL Abnormal [facility].; [facility]. Work Phone: No Panel Informationon 02-12 [id number] See Below Normal [facility].; [facility] Work Phone: CLIENT CONTACT: RORO Vigil Normal [facility]; [place] [employer] [facility] Work Phone: HCG, TOTAL, QL Positive Abnormal [facility]; [facility]. TEST CODE: [id number] Normal [facility]; [facility] Work Phone: TEST NAME: HCG, TOTAL, QN Normal [facility]; [facility]. Work Phone: Laboratory - Chemistry and C hemistry - challengeon 02-05-2023 HCG Qn 305 m[IU]/mL Abnormal [facility].; [facility]. Laboratory - Chemistry and C hemistry - challengeon 02-02-2023 HCG Qn 347 m[IU]/mL Abnormal [facility].; [facility]. Laboratory - Chemistry and C hemistry - challengeon 01-29-2023 HCG Qn 482 m[IU]/mL Abnormal [facility].; [facility]. Laboratory - Chemistry and C hemistry - challengeon 01-26-2023 Beta HCG ( test) Ql (U) Positive Abnormal [facility].; [employer]. Bilirubin Ql (U) Negative Normal [facility].; [employer]. HCG Qn 141 m[IU]/mL Abnormal [facility].; [employer]. Ketones Ql (U) 15 mg/dL Abnormal [facility].; [employer]. pH (U) 5.5 [pH] Normal [facility] [employer] [facility].; [employer]. Specific gravity (U) [Rel density] 1.025 Normal [place] [employer]; [employer]. Urobilinogen Qn (U) 1.0 mg/dL Normal [facility].; [employer]. Laboratory - Hematology and Cell countson 01-26-2023 Hemoglobin Ql (U) trace-intact Normal [facility].; [employer]. Laboratory - Specimen inform ationon 01-26-2023 Appearance (U) clear Normal [facility] [employer].; [employer]. Color (U) yellow Normal [place] [employer].; [employer]. Laboratory - Urinalysison Glucose Test strip (U) [Mass/Vol] Negative Normal [facility].; [employer]. Leukocyte esterase Test strip Ql (U) Negative Normal [facility] [employer].; [employer]. Nitrite Ql (U) Negative Normal [facility] [employer].; [employer]. Protein Ql (U) Negative Normal [facility].; [employer]. No Panel Informationon 01-26 CULTURE, URINE, ROUTINE SEE NOTE Normal [place] [employer].; [employer]. PROGESTERONE 15.4 ng/mL Normal [facility].; [employer]. Laboratory - Cytologyon 07-01 Pathologist Cyto stain Nom (Cvx/Vag) [ID] SEE NOTE Normal [place] [employer].; [employer]. No Panel Informationon 07-10 A DIAGNOSIS SEE NOTE Normal [facility] [employer].; [employer]. A GROSS DESCRIPTION SEE NOTE Normal [facility] [employer].; [employer]. A MICRO DESCRIPTION SEE NOTE Normal [facility] [employer].; [employer]. A PROCEDURE BIOPSY Normal [facility] [employer].; [employer]. A SOURCE SEE NOTE Normal [facility].; [employer]. CLINICAL INFORMATION SEE NOTE Normal [facility] [employer].; [employer]. Laboratory - Chemistry and C hemistry - challengeon 03-20-2022 Bilirubin Ql (U) Negative Normal [facility].; [employer]. Ketones Ql (U) Negative Normal [facility] [employer].; [employer]. pH (U) 7.0 [pH] Normal [employer].; [employer]. Specific gravity (U) [Rel density] 1.025 Normal [facility].; [employer]. Urobilinogen Qn (U) 0.2 mg/dL Normal [facility] [employer] [facility].; [employer]. Laboratory - Hematology and Cell countson 03-20-2022 Hemoglobin Ql (U) trace, intact Normal [facility] [employer].; [employer]. Laboratory - Specimen inform ationon 03-20-2022 Appearance (U) cloudy Abnormal [facility] [employer].; [employer]. Color (U) dark Yellow Normal [facility].; [employer]. Laboratory - Urinalysison Glucose Test strip (U) [Mass/Vol] Negative Normal [facility].; [employer]. Leukocyte esterase Test strip Ql (U) moderate Abnormal [place] [employer].; [employer]. Nitrite Ql (U) Negative Normal [facility].; [employer]. Protein Ql (U) Negative Normal [facility].; [employer]. No Panel Informationon 03-20 CULTURE, URINE, ROUTINE SEE NOTE Abnormal [facility].; [place] [employer] [facility]. Laboratory - Chemistry and C hemistry - challengeon 10-20-2021 Albumin [Mass/Vol] 4.8 g/dL Normal 3.6 - 5.1 g/dL [facility].; [place] [employer] [facility], [facility] Albumin/Globulin [Mass ratio] 1.9 {ratio} Normal 1.0 - 2.5 [facility].; [place] [employer] [facility]. ALP [Catalytic activity/Vol] 61 U/L Normal 31 - 125 U/L [facility].; [place] [employer] [facility]. ALT [Catalytic activity/Vol] 8 U/L Normal 6 - 29 U/L [facility].; [place] [employer] [facility], [employer]. AST [Catalytic activity/Vol] 12 U/L Normal 10 - 30 U/L [facility].; [place] [employer], [facility]. Bilirubin [Mass/Vol] 0.4 mg/dL Normal 0.2 - 1 .2 mg/dL [facility].; [place] [employer], [employer]. Calcium [Mass/Vol] 9.7 mg/dL Normal 8.6 - 10. 2 mg/dL [facility].; [place] [employer] [facility], [facility]. Chloride [Moles/Vol] 105 mmol/L Normal 98 - 11 0 mmol/L [facility].; [place] [employer], [facility]. CO2 [Moles/Vol] 28 mmol/L Normal 20 - 32 mmol/L [facility].; [place] [employer] [facility], [facility]. Creatinine [Mass/Vol] 0.73 mg/dL Normal 0.50 - 1.10 mg/dL [facility], [facility].; [employer], [employer]. Free T3 [Mass/Vol] 3.2 pg/mL Normal 2.3 - 4.2 pg/mL [facility], [facility].; [place] [employer] Free T4 [Mass/Vol] 1.1 ng/dL Normal 0.8 - 1.8 ng/dL [facility].; [employer], [employer]. GFR/1.73 sq M.predicted among blacks MDRD (S/P/Bld) [Vol rate/Area] 128 mL/min/{1.73_m2} Normal [facility]; [facility], [facility] Glucose [Mass/Vol] 84 mg/dL Normal 65 - 99 mg/dL [facility]; [facility], [facility] Potassium [Moles/Vol] 4.1 mmol/L Normal 3.5 - 5.3 mmol/L [facility]; [facility], [facility] Protein [Mass/Vol] 7.3 g/dL Normal 6.1 - 8.1 g/dL [facility]; [facility], [facility] Sodium [Moles/Vol] 139 mmol/L Normal 135 - 146 mmol/L [facility]; [facility], [facility] TSH Qn 1.00 m[IU]/L Normal [facility]; [facility], [facility] Urea nitrogen [Mass/Vol] 15 mg/dL Normal 7 - 25 mg/dL [facility]; [facility] No Panel Informationon 10-20 ADRIÁN SCREEN, IFA Negative Normal [facility]; [facility], [facility] BUN/CREATININE RATIO NOT APPLICABLE Normal 6 - 22 [facility]; [facility], [facility] eGFR NON-AFR. POLISH 111 Normal [facility]; [facility] GLOBULIN 2.5 Normal 1.9 - 3.7 [facility]; [facility], [facility] RHEUMATOID FACTOR <14 Normal [facility]; [facility], [facility] Laboratory - Chemistry and C hemistry - challengeon 08-24-2020 Bilirubin Ql (U) Negative Normal [facility], [facility].; [facility], [facility] Ketones Ql (U) Negative Normal [facility]; [facility], [facility] pH (U) 7.0 [pH] Normal [facility]; [facility] [employer], [facility] Specific gravity (U) [Rel density] 1.025 Normal [facility]; [facility], Inc[facility] Urobilinogen Qn (U) 1.0 mg/dL Normal [facility]; [facility] Laboratory - Hematology and Cell countson 08-24-2020 Hemoglobin Ql (U) trace, hemolyzed Abnormal [facility]; [facility] Laboratory - Specimen inform ationon 08-24-2020 Appearance (U) Clear Normal [facility]; [place] [employer] [facility] Color (U) yellow Normal [facility]; [place] [employer] Laboratory - Urinalysison Glucose Test strip (U) [Mass/Vol] Negative Normal [facility]; [place] [employer] [facility] Leukocyte esterase Test strip Ql (U) trace Normal [facility]; [place] [employer] [facility] Nitrite Ql (U) Negative Normal [facility]; [place] [employer] [facility] Protein Ql (U) Negative Normal [facility]; [place] [employer]. Laboratory - Chemistry and C hemistry - challengeon 07-14-2019 CRP [Mass/Vol] 0.6 mg/L Normal [facility]; [place] [employer] [facility] Free T3 [Mass/Vol] 3.0 pg/mL Normal 2.3 - 4.2 pg/mL [facility]; [facility] Free T4 [Mass/Vol] 1.0 ng/dL Normal 0.8 - 1.8 ng/dL [facility]; [place] [employer] [facility]. TSH Qn 0.45 m[IU]/L Normal 0.40 - 4.50 {mIU/L} [facility]; [place] [employer] [facility]. Laboratory - Hematology and Cell countson 07-14-2019 ESR (Bld) [Velocity] 2 mm/h Normal 0 - 20 mm/h [facility]; [place] [employer] [facility] Laboratory - Microbiology an d Antimicrobial susceptibilityon 07-14-2019 B. burgdorferi Ab IA Qn (S) <0.90 Normal [facility]; [place] [employer]. Laboratory - Serology - non- microon 07-14-2019 Nuclear Ab IF (S) [Titer] <1:40 Normal [place] [employer] [facility] [employer]. Rheumatoid factor Qn [IU]/mL Normal [facility].; [employer]. TPO Ab Qn [IU]/mL Normal [facility] [employer].; [employer]. Laboratory - Chemistry and C hemistry - challengeon 04-04-2018 Bilirubin Ql (U) Negative [facility] [employer]. Ketones Ql (U) Negative Normal [facility].; [employer]. pH (U) 5.0 [pH] Abnormal [place] [employer].; [employer]. Specific gravity (U) [Rel density] 1.025 Normal [place] [employer].; [employer]. Urobilinogen Qn (U) 0.2 mg/dL Normal [facility] [employer] [facility].; [employer]. Laboratory - Hematology and Cell countson 04-04-2018 Hemoglobin Ql (U) trace, hemolyzed Abnormal [facility] [employer]. Laboratory - Specimen inform ationon 04-04-2018 Appearance (U) cloudy Abnormal [facility] [employer].; [employer]. Color (U) red tinged Normal [place] [employer].; [employer]. Laboratory - Urinalysison Glucose Test strip (U) [Mass/Vol] Negative Normal [place] [employer].; [employer]. Leukocyte esterase Test strip Ql (U) moderate Abnormal [place] [employer].; [employer]. Nitrite Ql (U) Positive Abnormal [facility] [employer].; [employer]. Protein Ql (U) trace Normal [facility] [employer].; [employer]. Laboratory - Chemistry and C hemistry - challengeon 11-07-2016 Bilirubin Ql (U) Negative Normal [facility].; [employer]. Ketones Ql (U) Negative Normal [facility] [employer].; [employer]. pH (U) 5.5 [pH] Normal [employer].; [employer]. Specific gravity (U) [Rel density] >=1.030 Normal [place] [employer].; [employer]. Urobilinogen Qn (U) 1.0 mg/dL Normal [facility] [employer]. Laboratory - Hematology and Cell countson 11-07-2016 Hemoglobin Ql (U) Large Abnormal [employer].; [employer]. Laboratory - Specimen inform ationon 11-07-2016 Appearance (U) Cloudy Abnormal [facility]; [employer]. Color (U) Dark Yellow Normal [place] [employer].; [employer]. Laboratory - Urinalysison Glucose Test strip (U) [Mass/Vol] Negative Normal [place] [employer].; [employer]. Leukocyte esterase Test strip Ql (U) Moderate Abnormal [employer].; [employer], [place]. Protein Ql (U) 100 mg/dL Abnormal [facility].; [employer]. Laboratory - UrinalysisOrder ed By: Leslie Mata on 11-07-2016 Nitrite Ql (U) Negative Normal [facility].; [employer]. Laboratory - Chemistry and C hemistry - challengeon 08-28-2016 HCG.beta subunit Qn 49.67 m[IU]/mL Normal [facility].; [employer]. Laboratory - Chemistry and C hemistry - challengeon 07-19-2016 Bilirubin Ql (U) Negative Normal [facility].; [employer]. Ketones Ql (U) Negative Normal [facility] [employer].; [employer]. pH (U) 7.5 [pH] Normal [employer].; [employer], [place]. Specific gravity (U) [Rel density] 1.020 Normal [employer].; [employer]. Urobilinogen Qn (U) 2 mg/dL Abnormal [facility] [employer] [facility].; [employer]. Laboratory - Hematology and Cell countson 07-19-2016 Hemoglobin Ql (U) Negative Normal [employer].; [employer]. Laboratory - Specimen inform ationon 07-19-2016 Appearance (U) cloudy Abnormal [facility].; [employer]. Color (U) yellow Normal [employer].; [employer]. Laboratory - Urinalysison Glucose Test strip (U) [Mass/Vol] Negative Normal [employer].; [employer]. Leukocyte esterase Test strip Ql (U) trace Normal [employer].; [employer]. Nitrite Ql (U) Positive Abnormal [facility].; [employer]. Protein Ql (U) Negative Normal [facility].; [employer]. No Panel Informationon 07-19 CHLAMYDIA & GC RNA TMA [QUEST] Normal [employer].; [employer]. Laboratory - Microbiology an d Antimicrobial susceptibilityon 09-27-2015 S. pyogenes Ag EIA Ql (Throat) Negative Normal [employer].; [employer]. Laboratory - Microbiology an d Antimicrobial susceptibilityon 09-08-2014 S. pyogenes Ag EIA Ql (Throat) Negative Normal [place] [employer].; [employer]. Laboratory - Chemistry and C hemistry - challengeon 05-13-2014 Bilirubin Ql (U) Negative Normal [facility].; [employer]. Ketones Ql (U) Negative Normal [facility] [employer].; [employer]. pH (U) 6.5 [pH] Normal [employer].; [employer]. Specific gravity (U) [Rel density] 1.025 Normal [employer].; [employer]. Urobilinogen Qn (U) 1.0 mg/dL Normal [facility] [employer].; [employer]. Laboratory - Hematology and Cell countson 05-13-2014 Hemoglobin Ql (U) trace, hemolyzed Abnormal [facility].; [employer]. Laboratory - Microbiology an d Antimicrobial susceptibilityon 05-13-2014 Bacteria identified Cx Nom (U) CULTURE URINE Normal [place] [employer] [facility].; [employer]. Laboratory - Specimen inform ationon 05-13-2014 Appearance (U) cloudy Abnormal [facility].; [employer]. Color (U) dark Yellow Normal [employer].; [employer]. Laboratory - Urinalysison Glucose Test strip (U) [Mass/Vol] Negative Normal [place] [employer].; [employer]. Leukocyte esterase Test strip Ql (U) small Abnormal [employer].; [employer]. Nitrite Ql (U) Positive Abnormal [facility].; [employer]. Protein Ql (U) Negative Normal [facility].; [employer]. Laboratory - Microbiology an d Antimicrobial susceptibilityon 10-14-2013 S. pyogenes Ag EIA Ql (Throat) Negative Normal [employer].; [employer]. Vital Signs Date Time Vital Sign Value Performing Clinician Facility 05-14-2025 12:57-0400 Body height 160.02 cm cookdinner Work Phone: [facility] 05-14-2025 12:57-0400 Body mass index (BMI) [Ratio] 26 kg/m2 RosemarieRABT Work Phone: [facility] 05-14-2025 12:57-0400 Body weight 66.73 kg Rosemarie [email or web address] Work Phone: [facility] 09-23-2024 08:45-0500 Body height 160.02 cm Roro Carreno MA [employer].; [employer]. 09-23-2024 08:45-0500 Body mass index (BMI) [Ratio] 26.79 kg/m2 Roro Carreno MA [place] [employer].; [employer]. 09-23-2024 08:45-0500 Body surface area Derived from formula 1.72 m2 Roro Carreno MA [place] [employer] [facility].; [employer] 09-23-2024 08:45-0500 Body weight 68.61 kg Roro Wai SANTOS [facility], Inc.; [employer] 09-23-2024 08:45-0500 Diastolic blood pressure 84 mm[Hg] Roro Wai SANTOS [place] [employer] [facility].; [employer] Comment on above: Patient Position: Sitting; Cuff Location : Left Arm; Cuff Size: Standard 09-23-2024 08:45-0500 Heart rate 82 /min Roro Carreno MA [place] [employer] [facility].; [employer] Comment on above: Pattern: Regular 09-23-2024 08:45-0500 Systolic blood pressure 125 mm[Hg] Roro Carreno MA [place] [employer] [facility].; [employer] Comment on above: Patient Position: Sitting; Cuff Location : Left Arm; Cuff Size: Standard 08-27-2023 09:53-0500 Body height 160.02 cm Rebeca Ramirez Rc LATRICE [employer] [facility].; [employer] 08-27-2023 09:53-0500 Body mass index (BMI) [Ratio] 26.75 kg/m2 Rebeca Ramirez Rc [email or web address] [facility].; [employer] 08-27-2023 09:53-0500 Body surface area Derived from formula 1.72 m2 TaylorAshley Tatum [employer] [place] [employer] [facility], [facility].; [employer] 08-27-2023 09:53-0500 Body temperature 98.3 [degF] Taylor [facility].; [employer] Comment on above: Method: Tympanic 08-27-2023 09:53-0500 Body weight 68.49 kg TaylorAshley Villaey LATRICE [email or web address] [facility], [facility].; [employer] 08-27-2023 09:53-0500 Diastolic blood pressure 81 mm[Hg] TaylorAshley Villaey [employer] [facility], Inc.; [email or web address] [facility]. Comment on above: Patient Position: Sitting; Cuff Location : Left Arm; Cuff Size: Large 08-27-2023 09:53-0500 Heart rate 76 /min Rebeca Tatum [employer] [facility], [facility].; [employer]. Comment on above: Pattern: Regular 08-27-2023 09:53-0500 Systolic blood pressure 117 mm[Hg] Rebeca Tatum LATRICE [facility], Inc.; [employer]. Comment on above: Patient Position: Sitting; Cuff Location : Left Arm; Cuff Size: Large 08-20-2023 14:44-0500 Body height 160.02 cm Beena Cotter MA [facility], [facility].; [place] [employer] [facility], [employer]. 08-20-2023 14:44-0500 Body mass index (BMI) [Ratio] 26.75 kg/m2 Beena Cotter MA [facility], [facility].; [place] [employer] [facility], [facility]. 08-20-2023 14:44-0500 Body surface area Derived from formula 1.72 m2 Beena Cotter MA [facility], [facility].; [employer], [employer]. 08-20-2023 14:44-0500 Body weight 68.49 kg Beena Cotter MA [facility], [facility].; [employer] [facility], [employer]. 08-20-2023 14:44-0500 Diastolic blood pressure 87 mm[Hg] Beena Cotter MA [facility], [facility].; [employer]. Comment on above: Patient Position: Sitting; Cuff Location : Left Arm; Cuff Size: Standard 08-20-2023 14:44-0500 Heart rate 91 /min Beena Cotter MA [facility], [facility].; [employer]. Comment on above: Pattern: Regular 08-20-2023 14:44-0500 Systolic blood pressure 128 mm[Hg] Beena Cotter MA [facility], [facility].; [employer]. Comment on above: Patient Position: Sitting; Cuff Location : Left Arm; Cuff Size: Standard 07-17-2023 09:51-0400 Body height 160.02 cm Genny Masters LPN [facility], [facility].; [employer]. 07-17-2023 09:51-0400 Body mass index (BMI) [Ratio] 26.39 kg/m2 Genny Masters LPN [facility], [facility].; [facility], [facility]. 07-17-2023 09:51-0400 Body surface area Derived from formula 1.71 m2 Genny Masters LPN [facility], [facility].; [facility], [facility]. 07-17-2023 09:51-0400 Body temperature 98.3 [degF] Genny Masters LPN [facility], [facility].; [place] [employer] [facility], [facility]. Comment on above: Method: Tympanic 07-17-2023 09:51-0400 Body weight 67.59 kg Genny Masters LPN [facility], [facility].; [facility], [facility]. 07-17-2023 09:51-0400 Diastolic blood pressure 83 mm[Hg] Genny Masters LPN [facility], [facility].; [place] [employer] Comment on above: Patient Position: Sitting; Cuff Location : Left Arm; Cuff Size: Standard 07-17-2023 09:51-0400 Heart rate 83 /min Genny Masters LPN [facility], [facility].; [place] [employer], [employer]. Comment on above: Pattern: Regular 07-17-2023 09:51-0400 Systolic blood pressure 128 mm[Hg] Genny Masters LPN [facility], [facility].; [place] [employer] Comment on above: Patient Position: Sitting; Cuff Location : Left Arm; Cuff Size: Standard 05-14-2023 13:30-0400 Body height 160.02 cm Roro Carreno MA [facility], [facility].; [facility], [facility]. 05-14-2023 13:30-0400 Body mass index (BMI) [Ratio] 26.31 kg/m2 Roro Carreno MA [facility], [facility].; [facility], Inc[employer] 05-14-2023 13:30-0400 Body surface area Derived from formula 1.7 m2 Roro Carreno MA [facility], [facility].; [place] [employer], [facility]. 05-14-2023 13:30-0400 Body weight 67.36 kg Roro Carreno MA [facility], Inc.; [employer]. 05-14-2023 13:30-0400 Diastolic blood pressure 71 mm[Hg] Roro Carreno MA [employer].; [employer]. Comment on above: Patient Position: Sitting; Cuff Location : Left Arm; Cuff Size: Standard 05-14-2023 13:30-0400 Heart rate 76 /min Roro Carreno MA [employer].; [employer]. Comment on above: Pattern: Regular 05-14-2023 13:30-0400 Systolic blood pressure 110 mm[Hg] Roro Carreno MA [employer].; [employer]. Comment on above: Patient Position: Sitting; Cuff Location : Left Arm; Cuff Size: Standard 03-14-2023 14:38-0400 Body height 160.02 cm Michaela Kinza [employer] Work Phone: [employer].; [employer]. 03-14-2023 14:38-0400 Body mass index (BMI) [Ratio] 26.22 kg/m2 Michaela Kinza [employer] Work Phone: [employer].; [employer]. 03-14-2023 14:38-0400 Body surface area Derived from formula 1.7 m2 Michaela Kinza [employer] Work Phone: [employer].; [employer]. 03-14-2023 14:38-0400 Body temperature 98.4 [degF] Michaela Kinza [employer] Work Phone: [employer].; [employer]. Comment on above: Method: Tympanic 03-14-2023 14:38-0400 Body weight 67.13 kg Michaela Kinza [employer] Work Phone: [employer].; [employer]. 03-14-2023 14:38-0400 Diastolic blood pressure 80 mm[Hg] Michaela Kinza [employer] Work Phone: [employer].; [employer]. Comment on above: Patient Position: Sitting; Cuff Location : Left Arm; Cuff Size: Standard 03-14-2023 14:38-0400 Heart rate 80 /min Michaela Echols LPN Work Phone: [facility].; [employer]. Comment on above: Pattern: Regular 03-14-2023 14:38-0400 Systolic blood pressure 113 mm[Hg] Michaela Echols LPN Work Phone: [facility] [employer].; [employer]. Comment on above: Patient Position: Sitting; Cuff Location : Left Arm; Cuff Size: Standard 02-12-2023 13:29-0400 Body height 160.02 cm Roro [facility]reno MA [facility].; [employer]. 02-12-2023 13:29-0400 Body mass index (BMI) [Ratio] 25.69 kg/m2 Roro Carreno MA [place] [employer] [facility].; [employer]. 02-12-2023 13:29-0400 Body surface area Derived from formula 1.69 m2 Roro Carreno MA [place] [employer] [facility].; [employer]. 02-12-2023 13:29-0400 Body weight 65.77 kg Roro Carreno MA [facility].; [employer]. 02-12-2023 13:29-0400 Diastolic blood pressure 75 mm[Hg] Roro Carreno MA [place] [employer] [facility].; [employer]. Comment on above: Patient Position: Sitting; Cuff Location : Left Arm; Cuff Size: Standard 02-12-2023 13:29-0400 Heart rate 94 /min Roro Carreno MA [employer].; [employer]. Comment on above: Pattern: Regular 02-12-2023 13:29-0400 Systolic blood pressure 114 mm[Hg] Roro Carreno MA [place] [employer].; [employer]. Comment on above: Patient Position: Sitting; Cuff Location : Left Arm; Cuff Size: Standard 01-26-2023 08:08-0400 Body height 160.02 cm Roro [facility]ren[facility].; [facility]. 01-26-2023 08:08-0400 Body mass index (BMI) [Ratio] 26.22 kg/m2 Roro Wai SANTOS [facility].; [facility]. 01-26-2023 08:08-0400 Body surface area Derived from formula 1.7 m2 Roro Carreno MA [facility].; [facility]. 01-26-2023 08:08-0400 Body weight 67.13 kg Roro Wai SANTOS [facility].; [facility]. 01-26-2023 08:08-0400 Diastolic blood pressure 81 mm[Hg] Roro Wai SANTOS [facility].; [facility]. Comment on above: Patient Position: Sitting; Cuff Location : Left Arm; Cuff Size: Standard 01-26-2023 08:08-0400 Heart rate 88 /min Roro Carreno MA [facility].; [facility]. Comment on above: Pattern: Regular 01-26-2023 08:08-0400 Systolic blood pressure 115 mm[Hg] Roro Carreno MA [facility].; [facility]. Comment on above: Patient Position: Sitting; Cuff Location : Left Arm; Cuff Size: Standard 07-10-2022 08:32-0400 Body height 160.02 cm Rosemarie Beltran RN [facility].; [facility]. 07-10-2022 08:32-0400 Body mass index (BMI) [Ratio] 28.52 kg/m2 Rosemarie Beltran RN [facility].; [place] [employer] [facility]. 07-10-2022 08:32-0400 Body surface area Derived from formula 1.76 m2 Rosemarie Beltran RN [facility].; [place] [employer] [facility]. 07-10-2022 08:32-0400 Body temperature 98.3 [degF] Rosemarie Beltran RN [facility].; [employer]. Comment on above: Method: Tympanic 07-10-2022 08:32-0400 Body weight 73.03 kg Rosemarie Beltran RN [facility], [facility].; [employer] [facility]. 07-10-2022 08:32-0400 Diastolic blood pressure 79 mm[Hg] Rosemarie Beltran RN [facility].; [employer] [facility], [employer]. Comment on above: Patient Position: Sitting; Cuff Location : Left Arm; Cuff Size: Standard 07-10-2022 08:32-0400 Heart rate 116 /min Rosemarie Beltran RN [facility], [facility].; [employer], [employer]. Comment on above: Pattern: Regular 07-10-2022 08:32-0400 Systolic blood pressure 115 mm[Hg] Rosemarie Beltran RN [facility].; [place] [employer] [facility], [facility]. Comment on above: Patient Position: Sitting; Cuff Location : Left Arm; Cuff Size: Standard 06-29-2022 13:23-0400 Body height 160.02 cm Tess Dash LPN [facility], [facility].; [place] [employer] [facility], [facility]. 06-29-2022 13:23-0400 Body mass index (BMI) [Ratio] 29.05 kg/m2 Tess Dash LPN [facility], [facility].; [place] [employer] [facility], [facility]. 06-29-2022 13:23-0400 Body surface area Derived from formula 1.78 m2 Tess Dash LPN [facility], [facility].; [place] [employer] [facility], [facility]. 06-29-2022 13:23-0400 Body weight 74.39 kg Tess Dash LPN [facility], [facility].; [employer], [facility]. 06-29-2022 13:23-0400 Diastolic blood pressure 82 mm[Hg] Tess Dash LPN [facility], [facility].; [employer], [employer]. Comment on above: Patient Position: Sitting; Cuff Location : Left Arm; Cuff Size: Standard 06-29-2022 13:23-0400 Heart rate 82 /min Tess Dash LPN [facility], [facility].; [employer], [employer]. Comment on above: Pattern: Regular 06-29-2022 13:23-0400 Systolic blood pressure 120 mm[Hg] Tess Marthey [employer] [facility].; [facility]. Comment on above: Patient Position: Sitting; Cuff Location : Left Arm; Cuff Size: Standard 03-20-2022 09:29-0400 Body height 160.02 cm Genny Enciso MA [facility], [facility].; [facility]. 03-20-2022 09:29-0400 Body mass index (BMI) [Ratio] 28.7 kg/m2 Genny Enciso MA [facility].; [facility], [facility]. 03-20-2022 09:290400 Body surface area Derived from formula 1.77 m2 Genny Enciso MA [facility].; [facility]. 03-20-2022 09:290400 Body temperature 97.3 [degF] Genny Enciso MA [facility].; [facility], [employer]. Comment on above: Method: Tympanic 03-20-2022 09:290400 Body weight 73.48 kg Genny Enciso MA [facility].; [facility]. 03-20-2022 09:29-0400 Diastolic blood pressure 72 mm[Hg] Genny Enciso MA [facility].; [facility]. Comment on above: Patient Position: Sitting; Cuff Location : Left Arm; Cuff Size: Standard 03-20-2022 09:29-0400 Heart rate 79 /min Genny Enciso MA [facility].; [facility]. Comment on above: Pattern: Regular 03-20-2022 09:29-0400 Systolic blood pressure 103 mm[Hg] Genny Enciso MA [facility].; [facility]. Comment on above: Patient Position: Sitting; Cuff Location : Left Arm; Cuff Size: Standard 10-20-2021 13:34-0500 Diastolic blood pressure 80 mm[Hg] Tess Dash LPN [facility].; [place] [employer] [facility]. Comment on above: Patient Position: Standing; Cuff Locatio n: Left Arm; Cuff Size: Standard 10-20-2021 13:34-0500 Heart rate 81 /min Tess Dash LPN [facility], [facility].; [place] [employer] [facility], [place]. Comment on above: Pattern: Regular 10-20-2021 13:34-0500 Systolic blood pressure 115 mm[Hg] Tessrachna Dash LPN [facility], [facility].; [place] [employer] [facility], [place]. Comment on above: Patient Position: Standing; Cuff Locatio n: Left Arm; Cuff Size: Standard 10-20-2021 13:34-0500 Diastolic blood pressure 82 mm[Hg] [facility], [facility].; [place] [employer] [facility], [place]. Comment on above: Patient Position: Sitting; Cuff Location : Left Arm; Cuff Size: Standard 10-20-2021 13:34-0500 Heart rate 73 /min [facility]achna [facility], [facility].; [place] [employer], [place]. Comment on above: Pattern: Regular 10-20-2021 13:34-0500 Systolic blood pressure 121 mm[Hg] [facility]achna [facility], [facility].; [place] [employer], [place]. Comment on above: Patient Position: Sitting; Cuff Location : Left Arm; Cuff Size: Standard 10-20-2021 13:31-0500 Body height 160.02 cm Tess [facility], [facility].; [place] [employer] [facility] 10-20-2021 13:31-0500 Body mass index (BMI) [Ratio] 28.34 kg/m2 Tessrachna Dash [facility], [facility].; [facility], [facility]. 10-20-2021 13:31-0500 Body surface area Derived from formula 1.76 m2 Tess Dash LPN [facility], [facility].; [place] [employer] [facility], [facility]. 10-20-2021 13:31-0500 Body weight 72.58 kg Tessrachna Dash [facility], [facility].; [place] [employer] [facility], [facility]. 10-20-2021 13:31-0500 Diastolic blood pressure 72 mm[Hg] Tessrachna Dash [facility], [facility].; [place] [employer], [place]. Comment on above: Patient Position: Supine; Cuff Location: Left Arm; Cuff Size: Standard 10-20-2021 13:31-0500 Heart rate 74 /min Tess Dash [employer] [facility] [employer], [place]. Comment on above: Pattern: Regular 10-20-2021 13:31-0500 Systolic blood pressure 106 mm[Hg] Tess Dash [employer] [facility] [employer], [place]. Comment on above: Patient Position: Supine; Cuff Location: Left Arm; Cuff Size: Standard 01-17-2021 11:22-0400 Body height 160.02 cm Neilee L Vess [employer] [facility] [employer] [employer], [facility]. 01-17-2021 11:22-0400 Body mass index (BMI) [Ratio] 27.99 kg/m2 Neilee L Vess [employer] [place] [employer] [facility] [employer], [place]. 01-17-2021 11:22-0400 Body surface area Derived from formula 1.75 m2 Neilee L Vess [employer] [place] [employer] [facility] [employer], [facility]. 01-17-2021 11:22-0400 Body weight 71.67 kg Neilee L Vess [employer] [place] [employer] [facility], [facility].; [employer], [place]. 01-17-2021 11:22-0400 Diastolic blood pressure 76 mm[Hg] Neilee L Vess [employer] [place] [employer] [facility], [facility].; [employer], [place]. Comment on above: Patient Position: Sitting; Cuff Location : Left Arm; Cuff Size: Standard 01-17-2021 11:22-0400 Heart rate 75 /min Neilee L Vess [employer] [place] [employer] [facility] [employer], [place]. Comment on above: Pattern: Regular 01-17-2021 11:22-0400 Systolic blood pressure 113 mm[Hg] Neilee L Vess [employer], [place].; [employer], [place]. Comment on above: Patient Position: Sitting; Cuff Location : Left Arm; Cuff Size: Standard 08-24-2020 08:54-0500 Body height 160.02 cm Neilee L Vess [employer] [place] [employer] [facility] [employer], [place]. 08-24-2020 08:54-0500 Body mass index (BMI) [Ratio] 27.99 kg/m2 Neilee L Vess [employer] [facility], [facility].; [place] [employer] [facility], [facility]. 08-24-2020 08:54-0500 Body surface area Derived from formula 1.75 m2 Neilee L Vess [employer] [facility], [facility].; [employer], [place]. 08-24-2020 08:54-0500 Body temperature 98.4 [degF] Neilee L Vess [employer] [facility], [facility].; [employer], [place]. Comment on above: Method: Tympanic 08-24-2020 08:54-0500 Body weight 71.67 kg Neilee L Vess [employer] [facility], [facility].; [employer], [facility]. 08-24-2020 08:54-0500 Diastolic blood pressure 80 mm[Hg] Neilee L Vess [employer] [facility], [facility].; [employer], [place]. Comment on above: Patient Position: Sitting; Cuff Location : Left Arm; Cuff Size: Standard 08-24-2020 08:54-0500 Heart rate 106 /min Magalyse L Xiomara [employer] [facility], [facility].; [employer]. Comment on above: Pattern: Regular 08-24-2020 08:54-0500 Systolic blood pressure 112 mm[Hg] Neilee L Vess [employer] [place] [employer] [facility], [facility].; [employer]. Comment on above: Patient Position: Sitting; Cuff Location : Left Arm; Cuff Size: Standard 05-11-2020 13:22-0400 Body height 1607.82 cm Neclarke Ramses Solano [employer] [facility], [facility].; [employer], [facility]. 05-11-2020 13:22-0400 Body mass index (BMI) [Ratio] 0.26 kg/m2 Neilee L Vess [employer] [place] [employer] [facility], [facility].; [employer], [place]. 05-11-2020 13:22-0400 Body surface area Derived from formula 9.12 m2 Neilee L Vess [employer] [place] [employer], [facility].; [employer], [place]. 05-11-2020 13:22-0400 Body weight 68.04 kg Neilee L Vess [employer].; [employer]. 05-11-2020 13:22-0400 Diastolic blood pressure 76 mm[Hg] Neilee L Vess [employer] [place] [employer] [facility] [employer]. Comment on above: Patient Position: Sitting; Cuff Location : Right Arm; Cuff Size: Standard 05-11-2020 13:22-0400 Heart rate 77 /min Neilee L Vess [employer] [place] [employer] [facility] [employer], [place]. Comment on above: Pattern: Regular 05-11-2020 13:22-0400 Systolic blood pressure 113 mm[Hg] Neilee L Vess [employer], [place]. Comment on above: Patient Position: Sitting; Cuff Location : Right Arm; Cuff Size: Standard 11-18-2019 13:48-0500 Body height 160.02 cm Neilee L Vess [employer] [place] [employer] [employer] [employer]. 11-18-2019 13:48-0500 Body mass index (BMI) [Ratio] 25.86 kg/m2 Neilee L Vess [employer] [facility] [employer], [place]. 11-18-2019 13:48-0500 Body surface area Derived from formula 1.69 m2 Neilee L Vess [employer], [place].; [employer], [place]. 11-18-2019 13:48-0500 Body temperature 99.4 [degF] Neilee L Vess [employer], [place]. Comment on above: Method: Tympanic 11-18-2019 13:48-0500 Body weight 66.23 kg Neilee L Vess [employer]. 11-18-2019 13:48-0500 Diastolic blood pressure 71 mm[Hg] Neilee L Vess [employer], [place].; [employer], [place]. Comment on above: Patient Position: Sitting; Cuff Location : Right Arm; Cuff Size: Standard 11-18-2019 13:48-0500 Heart rate 98 /min Neilee L Vess [employer], [place].; [employer]. Comment on above: Pattern: Regular 11-18-2019 13:48-0500 Inhaled oxygen concentration 20 % Neilee L Vess [employer]. Comment on above: Room air 11-18-2019 13:48-0500 Inhaled oxygen concentration 21 % Neilee L Vess [employer]. Comment on above: Room air 11-18-2019 13:48-0500 SaO2% (BldA) [Mass fraction] 96 % Neilee L Vess [employer] 11-18-2019 13:48-0500 Systolic blood pressure 106 mm[Hg] Neilee L Vess [employer].; [employer]. Comment on above: Patient Position: Sitting; Cuff Location : Right Arm; Cuff Size: Standard 07-14-2019 14:13-0400 Body height 160.02 cm Ysabel Luna RN [employer].; [employer]. 07-14-2019 14:13-0400 Body mass index (BMI) [Ratio] 26.5 kg/m2 Ysabel Luna RN [employer].; [employer]. 07-14-2019 14:13-0400 Body surface area Derived from formula 1.71 m2 Ysabel Luna RN [employer].; [employer]. 07-14-2019 14:13-0400 Body temperature 97.7 [degF] Ysabel Luna RN [employer].; [employer]. Comment on above: Method: Tympanic 07-14-2019 14:13-0400 Body weight 67.86 kg Ysabel Luna RN [employer].; [employer]. 07-14-2019 14:13-0400 Diastolic blood pressure 76 mm[Hg] Ysabel Luna RN [employer].; [employer]. Comment on above: Patient Position: Sitting; Cuff Location : Left Arm; Cuff Size: Standard 07-14-2019 14:13-0400 Heart rate 77 /min Ysabel Luna RN [employer].; [employer]. Comment on above: Pattern: Regular 07-14-2019 14:13-0400 Systolic blood pressure 118 mm[Hg] Ysabel Luna RN [employer].; [employer]. Comment on above: Patient Position: Sitting; Cuff Location : Left Arm; Cuff Size: Standard 06-04-2019 08:18-0400 Body height 160.02 cm Ysabel Luna RN [employer].; [employer]. 06-04-2019 08:18-0400 Body mass index (BMI) [Ratio] 26.09 kg/m2 Ysabel Luna RN [employer].; [employer]. 06-04-2019 08:18-0400 Body surface area Derived from formula 1.7 m2 Ysabel Luna RN [employer].; [employer]. 06-04-2019 08:18-0400 Body temperature 99.1 [degF] Ysabel Luna RN [employer].; [employer]. Comment on above: Method: Tympanic 06-04-2019 08:18-0400 Body weight 66.82 kg Ysabel Luna RN [employer].; [employer]. 06-04-2019 08:18-0400 Diastolic blood pressure 74 mm[Hg] Ysabel Luna RN [employer].; [employer]. Comment on above: Patient Position: Sitting; Cuff Location : Left Arm; Cuff Size: Standard 06-04-2019 08:18-0400 Heart rate 87 /min Ysabel Luna RN [employer].; [employer]. Comment on above: Pattern: Regular 06-04-2019 08:18-0400 Inhaled oxygen concentration 20 % Ysabel Luna RN [employer].; [employer]. Comment on above: Room air 06-04-2019 08:18-0400 Inhaled oxygen concentration 21 % Ysabel Luna RN [employer].; [employer]. Comment on above: Room air 06-04-2019 08:18-0400 SaO2% (BldA) [Mass fraction] 92 % Ysabel Luna RN [employer].; [employer]. 06-04-2019 08:18-0400 Systolic blood pressure 112 mm[Hg] Ysabel Luna RN [employer].; [employer]. Comment on above: Patient Position: Sitting; Cuff Location : Left Arm; Cuff Size: Standard 03-03-2019 14:13-0400 Body height 160.02 cm Rosemarie Beltran RN [employer].; [employer]. 03-03-2019 14:13-0400 Body mass index (BMI) [Ratio] 25.33 kg/m2 Rosemarie Beltran RN [employer].; [employer]. 03-03-2019 14:13-0400 Body surface area Derived from formula 1.68 m2 Rosemarie Beltran RN [employer].; [employer]. 03-03-2019 14:13-0400 Body temperature 99 [degF] Rosemarie Beltran RN [employer].; [employer]. Comment on above: Method: Tympanic 03-03-2019 14:13-0400 Body weight 64.86 kg Rosemarie Beltran RN [employer].; [employer]. 03-03-2019 14:13-0400 Diastolic blood pressure 70 mm[Hg] Rosemarie Beltran RN [employer].; [employer]. Comment on above: Patient Position: Sitting; Cuff Location : Left Arm; Cuff Size: Standard 03-03-2019 14:13-0400 Heart rate 88 /min Rosemarie Beltran RN [employer].; [employer]. Comment on above: Pattern: Regular 03-03-2019 14:13-0400 Systolic blood pressure 108 mm[Hg] Rosemarie Beltran RN [employer].; [employer]. Comment on above: Patient Position: Sitting; Cuff Location : Left Arm; Cuff Size: Standard 10-31-2018 09:05-0500 Body height 160.02 cm Ysabel Luna RN [employer].; [employer]. 10-31-2018 09:05-0500 Body mass index (BMI) [Ratio] 26.5 kg/m2 Ysabel Luna RN [employer].; [employer]. 10-31-2018 09:05-0500 Body surface area Derived from formula 1.71 m2 Ysabel Luna RN [employer]. 10-31-2018 09:05-0500 Body temperature 98.1 [degF] Ysabel Luna RN [employer].; [employer]. Comment on above: Method: Tympanic 10-31-2018 09:05-0500 Body weight 67.86 kg Ysabel Luna RN [employer].; [employer]. 10-31-2018 09:05-0500 Diastolic blood pressure 74 mm[Hg] Ysabel Luna RN [employer].; [employer]. Comment on above: Patient Position: Sitting; Cuff Location : Left Arm; Cuff Size: Standard 10-31-2018 09:05-0500 Heart rate 74 /min Ysabel Luna RN [employer].; [employer]. Comment on above: Pattern: Regular 10-31-2018 09:05-0500 Systolic blood pressure 107 mm[Hg] Ysabel Luna RN [employer].; [employer]. Comment on above: Patient Position: Sitting; Cuff Location : Left Arm; Cuff Size: Standard 04-04-2018 11:45-0400 Body height 160.02 cm Ysabel Luna RN [employer].; [employer]. 04-04-2018 11:45-0400 Body mass index (BMI) [Ratio] 26.04 kg/m2 Ysabel Luna RN [employer].; [employer]. 04-04-2018 11:45-0400 Body surface area Derived from formula 1.7 m2 Ysabel Luna RN [employer].; [employer]. 04-04-2018 11:45-0400 Body temperature 98.7 [degF] Ysabel Luna RN [employer].; [employer]. Comment on above: Method: Tympanic 04-04-2018 11:45-0400 Body weight 66.68 kg Ysabel Luna RN [place] [employer] [facility] [employer]. 04-04-2018 11:45-0400 Diastolic blood pressure 70 mm[Hg] Ysabel Luan RN [place] [employer].; [employer]. Comment on above: Patient Position: Sitting; Cuff Location : Left Arm; Cuff Size: Standard 04-04-2018 11:45-0400 Heart rate 81 /min Ysabel Luna RN [place] [employer] [facility] [employer]. Comment on above: Pattern: Regular 04-04-2018 11:45-0400 Systolic blood pressure 102 mm[Hg] Ysabel Luna RN [place] [employer].; [employer]. Comment on above: Patient Position: Sitting; Cuff Location : Left Arm; Cuff Size: Standard 03-11-2018 14:27-0400 Body height 160.02 cm Ysabel Luna RN [place] [employer] [facility] [employer]. 03-11-2018 14:27-0400 Body mass index (BMI) [Ratio] 26.13 kg/m2 Ysabel Luna RN [place] [employer].; [employer]. 03-11-2018 14:27-0400 Body surface area Derived from formula 1.7 m2 Ysabel Luna RN [place] [employer].; [employer]. 03-11-2018 14:27-0400 Body temperature 99.21 [degF] Ysabel Luna RN [place] [employer].; [employer]. Comment on above: Method: Tympanic 03-11-2018 14:27-0400 Body weight 66.91 kg Ysabel Luna RN [employer].; [employer]. 03-11-2018 14:27-0400 Diastolic blood pressure 73 mm[Hg] Ysabel Luna RN [place] [employer].; [employer]. Comment on above: Patient Position: Sitting; Cuff Location : Left Arm; Cuff Size: Standard 03-11-2018 14:27-0400 Heart rate 71 /min Ysabel Luna RN [employer].; [employer]. Comment on above: Pattern: Regular 03-11-2018 14:27-0400 Systolic blood pressure 108 mm[Hg] Ysabel Luna RN [employer].; [employer]. Comment on above: Patient Position: Sitting; Cuff Location : Left Arm; Cuff Size: Standard 12-17-2017 10:46-0400 Body height 160.02 cm Ysabel Luna RN [employer].; [employer]. 12-17-2017 10:46-0400 Body mass index (BMI) [Ratio] 26.06 kg/m2 Ysabel Luna RN [employer].; [employer]. 12-17-2017 10:46-0400 Body surface area Derived from formula 1.7 m2 Ysabel Luna RN [employer].; [employer]. 12-17-2017 10:46-0400 Body temperature 97.7 [degF] Ysabel Luna RN [employer].; [employer]. Comment on above: Method: Tympanic 12-17-2017 10:46-0400 Body weight 66.72 kg Ysabel Luna RN [employer].; [employer]. 12-17-2017 10:46-0400 Diastolic blood pressure 72 mm[Hg] Ysabel Luna RN [employer].; [employer]. Comment on above: Patient Position: Sitting; Cuff Location : Left Arm; Cuff Size: Standard 12-17-2017 10:46-0400 Heart rate 90 /min Ysabel Luna RN [employer].; [employer]. Comment on above: Pattern: Regular 12-17-2017 10:46-0400 Systolic blood pressure 110 mm[Hg] Ysabel Luna RN [employer].; [employer]. Comment on above: Patient Position: Sitting; Cuff Location : Left Arm; Cuff Size: Standard 09-11-2017 11:17-0500 Body height 160.02 cm Priscila Solano LPN [employer].; [employer]. 09-11-2017 11:17-0500 Body mass index (BMI) [Ratio] 26.39 kg/m2 Neilee L Vess [employer] 09-11-2017 11:17-0500 Body surface area Derived from formula 1.71 m2 Neilee L Vess [employer] 09-11-2017 11:17-0500 Body weight 67.59 kg Franchescailee L Vess [employer], [place]. 09-11-2017 11:17-0500 Diastolic blood pressure 70 mm[Hg] Neilee L Vess [employer], [place]. Comment on above: Patient Position: Sitting; Cuff Location : Left Arm; Cuff Size: Standard 09-11-2017 11:17-0500 Heart rate 71 /min Franchescailee L Vess [employer] Comment on above: Pattern: Regular 09-11-2017 11:17-0500 Systolic blood pressure 108 mm[Hg] Franchescailee L Vess [employer], [place]. Comment on above: Patient Position: Sitting; Cuff Location : Left Arm; Cuff Size: Standard 07-26-2017 14:53-0400 Body height 160.02 cm Page Mathew LPN [employer], [place]. 07-26-2017 14:53-0400 Body mass index (BMI) [Ratio] 26.39 kg/m2 Page Mathew LPN [employer], [place]. 07-26-2017 14:53-0400 Body surface area Derived from formula 1.71 m2 Page Mathew [employer], [place]. 07-26-2017 14:53-0400 Body weight 67.59 kg Page Priyanka POLLARD [employer], [place]. 07-26-2017 14:53-0400 Diastolic blood pressure 74 mm[Hg] Page Mathew LPN [employer]. Comment on above: Patient Position: Sitting; Cuff Location : Left Arm; Cuff Size: Standard 07-26-2017 14:53-0400 Heart rate 76 /min Page Priyanka ORTEGAN [employer], [place]. Comment on above: Pattern: Regular 07-26-2017 14:53-0400 Systolic blood pressure 112 mm[Hg] Page Wilsonlisa [employer], [place]. Comment on above: Patient Position: Sitting; Cuff Location : Left Arm; Cuff Size: Standard 07-24-2017 15:41-0400 Body height 160.02 cm Neilee L Vess [employer] 07-24-2017 15:41-0400 Body mass index (BMI) [Ratio] 26.04 kg/m2 Neilee L Vess [employer] 07-24-2017 15:41-0400 Body surface area Derived from formula 1.7 m2 Neilee L Vess [employer], [place]. 07-24-2017 15:41-0400 Body temperature 97.8 [degF] Neilee L Vess [employer], [place]. Comment on above: Method: Tympanic 07-24-2017 15:41-0400 Body weight 66.68 kg Neilee L Vess [employer] 07-24-2017 15:41-0400 Diastolic blood pressure 77 mm[Hg] Neilee L Vess [employer], [place]. Comment on above: Patient Position: Sitting; Cuff Location : Right Arm; Cuff Size: Standard 07-24-2017 15:41-0400 Heart rate 70 /min Neilee L Vess [employer], [place]. Comment on above: Pattern: Regular 07-24-2017 15:41-0400 Systolic blood pressure 114 mm[Hg] Neilee L Vess [employer]. Comment on above: Patient Position: Sitting; Cuff Location : Right Arm; Cuff Size: Standard 06-19-2017 14:02-0400 Body height 160.02 cm Neilee L Xiomara [employer], [place]. 06-19-2017 14:02-0400 Body mass index (BMI) [Ratio] 25.86 kg/m2 Neilee L Vess [employer]. 06-19-2017 14:02-0400 Body surface area Derived from formula 1.69 m2 Neilee L Vess [employer] [place].; [employer]. 06-19-2017 14:02-0400 Body temperature 100.5 [degF] Guess Your Songsilee L Vess [employer] [place].; [employer]. Comment on above: Method: Tympanic 06-19-2017 14:02-0400 Body weight 66.23 kg Magalyse L Xiomara [employer] [place]. 06-19-2017 14:02-0400 Diastolic blood pressure 85 mm[Hg] Neilee L Vess [employer] [place].; [employer]. Comment on above: Patient Position: Sitting; Cuff Location : Left Arm; Cuff Size: Standard 06-19-2017 14:02-0400 Heart rate 106 /min Neclarke L Xiomara [employer]. Comment on above: Pattern: Regular 06-19-2017 14:02-0400 Inhaled oxygen concentration 20 % Neilee L Vess [employer] [place].; [employer]. Comment on above: Room air 06-19-2017 14:02-0400 Inhaled oxygen concentration 21 % Neilee L Vess [employer].; [employer]. Comment on above: Room air 06-19-2017 14:02-0400 SaO2% (BldA) [Mass fraction] 97 % Neilee L Vess [employer] [place]. 06-19-2017 14:02-0400 Systolic blood pressure 125 mm[Hg] Neilee L Vess [employer]. Comment on above: Patient Position: Sitting; Cuff Location : Left Arm; Cuff Size: Standard 11-07-2016 14:45-0500 Body temperature 98.3 [degF] Leslie Mata [employer] 11-07-2016 14:45-0500 Body weight 62.68 kg Leslie Mata [employer] 11-07-2016 14:45-0500 Diastolic blood pressure 72 mm[Hg] Leslie Mata [employer]. Comment on above: Patient Position: Sitting; Cuff Location : Left Arm; Cuff Size: Standard 11-07-2016 14:45-0500 Heart rate 95 /min Leslie Mata [employer]. Comment on above: Pattern: Regular 11-07-2016 14:45-0500 Systolic blood pressure 112 mm[Hg] Leslie Mata [employer]. Comment on above: Patient Position: Sitting; Cuff Location : Left Arm; Cuff Size: Standard 08-28-2016 15:34-0500 Body weight 59.88 kg Neilee L Vess [employer] 08-28-2016 15:34-0500 Diastolic blood pressure 75 mm[Hg] Neilee L Vess [employer] [place]. Comment on above: Patient Position: Sitting; Cuff Location : Left Arm; Cuff Size: Standard 08-28-2016 15:34-0500 Heart rate 79 /min Neilee L Vess [employer] [place]. Comment on above: Pattern: Regular 08-28-2016 15:34-0500 Systolic blood pressure 108 mm[Hg] Neilee L Vess [employer] Comment on above: Patient Position: Sitting; Cuff Location : Left Arm; Cuff Size: Standard 04-10-2016 15:59-0400 Body height 160.02 cm Ysabel Luna RN [employer] [employer]. 04-10-2016 15:59-0400 Body mass index (BMI) [Ratio] 23.19 kg/m2 Ysabel Luna RN [place] [employer]. 04-10-2016 15:59-0400 Body surface area Derived from formula 1.62 m2 Ysabel Luna RN [place] [employer]. 04-10-2016 15:59-0400 Body temperature 98.2 [degF] Ysabel Luna RN [employer]. Comment on above: Method: Tympanic 04-10-2016 15:59-0400 Body weight 59.38 kg Ysabel Luna RN [place] [employer]. 04-10-2016 15:59-0400 Diastolic blood pressure 75 mm[Hg] Ysabel Luna RN [employer]. Comment on above: Patient Position: Sitting; Cuff Location : Left Arm; Cuff Size: Standard 04-10-2016 15:59-0400 Heart rate 61 /min Ysabel Luna RN [employer]. Comment on above: Pattern: Regular 04-10-2016 15:59-0400 Systolic blood pressure 117 mm[Hg] Ysabel Luna RN [employer]. Comment on above: Patient Position: Sitting; Cuff Location : Left Arm; Cuff Size: Standard 10-27-2015 09:25-0500 Body height 160.02 cm Page Mathew LPN [employer]. 10-27-2015 09:25-0500 Body mass index (BMI) [Ratio] 24.71 kg/m2 Page Mathew LPN [employer]. 10-27-2015 09:25-0500 Body surface area Derived from formula 1.66 m2 Page Mathew LPN [employer]. 10-27-2015 09:25-0500 Body temperature 98.6 [degF] Page Wilsonlisa POLLARD [place] [employer] [facility], [employer]. Comment on above: Method: Tympanic 10-27-2015 09:25-0500 Body weight 63.28 kg Page Priyanka POLLARD [place] [employer] [facility] [employer] 10-27-2015 09:25-0500 Diastolic blood pressure 79 mm[Hg] Page Priyanka POLLARD [place] [employer] [facility] [employer], [employer]. Comment on above: Patient Position: Sitting; Cuff Location : Left Arm; Cuff Size: Standard 10-27-2015 09:25-0500 Heart rate 65 /min Page Priyanka POLLARD [place] [employer] [facility], [employer]. Comment on above: Pattern: Regular 10-27-2015 09:25-0500 Systolic blood pressure 121 mm[Hg] Page Wilsonlisa POLLARD [place] [employer] [facility] [employer], [employer]. Comment on above: Patient Position: Sitting; Cuff Location : Left Arm; Cuff Size: Standard 09-27-2015 15:19-0500 Body height 160.02 cm Rebeca Tatum [employer] [place] [employer] [facility] [employer], [place] 09-27-2015 15:19-0500 Body mass index (BMI) [Ratio] 24.8 kg/m2 Rebeca Burrowsuckey [employer] [place] [employer] [facility] [employer] 09-27-2015 15:19-0500 Body surface area Derived from formula 1.66 m2 Rebeca Burrowsfelicita POLLARD [place] [employer] [facility] [employer], [place]. 09-27-2015 15:19-0500 Body temperature 99.3 [degF] Rebeca Tatum [employer] [place] [employer] [facility], [employer]. Comment on above: Method: Tympanic 09-27-2015 15:19-0500 Body weight 63.5 kg Rebeca Tatum LATRICE [place] [employer] [facility] [employer] [place]. 09-27-2015 15:19-0500 Diastolic blood pressure 72 mm[Hg] [facility]atum [facility] [employer]. Comment on above: Patient Position: Sitting; Cuff Location : Left Arm; Cuff Size: Large 09-27-2015 15:19-0500 Heart rate 76 /min Rebeca Tatum [employer] [facility] [employer]. Comment on above: Pattern: Regular 09-27-2015 15:19-0500 Systolic blood pressure 110 mm[Hg] Rebeca [facility]atum [facility] [employer]. Comment on above: Patient Position: Sitting; Cuff Location : Left Arm; Cuff Size: Large 04-15-2015 13:39-0400 Body height 160.02 cm [facility] [employer] [facility], [place]. 04-15-2015 13:39-0400 Body mass index (BMI) [Ratio] 24.45 kg/m2 [facility] [employer] [facility] [employer]. 04-15-2015 13:39-0400 Body surface area Derived from formula 1.65 m2 Nadia [facility] [employer] [facility], [employer]. 04-15-2015 13:39-0400 Body temperature 98.5 [degF] Nadia Linares [facility], [place].; [employer]. Comment on above: Method: Tympanic 04-15-2015 13:39-0400 Body weight 62.6 kg [facility] [employer] [facility], [employer]. 04-15-2015 13:39-0400 Diastolic blood pressure 71 mm[Hg] Nadia Linares [facility] [place]. Comment on above: Patient Position: Sitting; Cuff Location : Right Arm; Cuff Size: Standard 04-15-2015 13:39-0400 Heart rate 84 /min Nadia Jaylabach [facility] [employer] [facility], [employer]. Comment on above: Pattern: Regular 04-15-2015 13:39-0400 Systolic blood pressure 110 mm[Hg] Nadia Milagros Delgado [employer]. Comment on above: Patient Position: Sitting; Cuff Location : Right Arm; Cuff Size: Standard 09-29-2014 10:50-0500 Body temperature 98.2 [degF] Neilee L Vess [employer]. Comment on above: Method: Tympanic 09-29-2014 10:50-0500 Body weight 63.5 kg Neilee L Vess [employer]. 09-29-2014 10:50-0500 Diastolic blood pressure 78 mm[Hg] Neilee L Vess [employer]. Comment on above: Patient Position: Sitting; Cuff Location : Left Arm; Cuff Size: Standard 09-29-2014 10:50-0500 Heart rate 92 /min Neilee L Vess [employer]. Comment on above: Pattern: Regular 09-29-2014 10:50-0500 Systolic blood pressure 114 mm[Hg] Neilee L Vess [employer]. Comment on above: Patient Position: Sitting; Cuff Location : Left Arm; Cuff Size: Standard 09-08-2014 13:10-0500 Body temperature 98.7 [degF] Neilee L Vess [employer]. Comment on above: Method: Tympanic 09-08-2014 13:10-0500 Body weight 63.5 kg Neilee L Vess [employer]. 09-08-2014 13:10-0500 Diastolic blood pressure 72 mm[Hg] Neilee L Vess [employer]. Comment on above: Patient Position: Sitting; Cuff Location : Right Arm; Cuff Size: Standard 09-08-2014 13:10-0500 Heart rate 75 /min Neilee L Vess [employer]. Comment on above: Pattern: Regular 09-08-2014 13:10-0500 Systolic blood pressure 109 mm[Hg] Neilee L Vess [employer] [place], [place]. Comment on above: Patient Position: Sitting; Cuff Location : Right Arm; Cuff Size: Standard 06-16-2014 09:29-0400 Body temperature 98.5 [degF] Neilee L Vess [employer] [place], [place]. Comment on above: Method: Tympanic 06-16-2014 09:290400 Body weight 63.5 kg Neilee L Vess [employer], [place]. 06-16-2014 09:29-0400 Diastolic blood pressure 67 mm[Hg] Neilee L Vess [employer], [employer]. Comment on above: Patient Position: Sitting; Cuff Location : Right Arm; Cuff Size: Standard 06-16-2014 09:29-0400 Heart rate 71 /min Neilee L Vess [employer], [place]. Comment on above: Pattern: Regular 06-16-2014 09:29-0400 Systolic blood pressure 99 mm[Hg] Neilee L Vess [employer] [facility] [place]. Comment on above: Patient Position: Sitting; Cuff Location : Right Arm; Cuff Size: Standard 05-13-2014 10:130400 Body temperature 98 [degF] Page Lexid [employer], [place]. Comment on above: Method: Tympanic 05-13-2014 10:130400 Body weight 64.52 kg Page Elliottd [employer], [employer]. 05-13-2014 10:130400 Diastolic blood pressure 73 mm[Hg] Page Umuerd [employer] [place], [employer], [employer]. Comment on above: Patient Position: Sitting; Cuff Location : Left Arm; Cuff Size: Standard 05-13-2014 10:130400 Heart rate 81 /min Page Umuerd [employer]. Comment on above: Pattern: Regular 05-13-2014 10:13-0400 Systolic blood pressure 104 mm[Hg] Page Mathew LPN [place] [employer]. Comment on above: Patient Position: Sitting; Cuff Location : Left Arm; Cuff Size: Standard 03-09-2014 11:51-0400 Body height 160.02 cm Ysabel Luna RN [place] [employer] [facility] [employer]. 03-09-2014 11:51-0400 Body mass index (BMI) [Ratio] 24.76 kg/m2 Ysabel Luna RN [place] [employer] 03-09-2014 11:51-0400 Body surface area Derived from formula 1.66 m2 Ysabel Luna RN [place] [employer] [facility] [employer]. 03-09-2014 11:51-0400 Body temperature 97.3 [degF] Ysabel Luna RN [place] [employer]. Comment on above: Method: Tympanic 03-09-2014 11:51-0400 Body weight 63.41 kg Ysabel Luna RN [place] [employer]. 03-09-2014 11:51-0400 Diastolic blood pressure 85 mm[Hg] Ysabel Luna RN [place] [employer]. Comment on above: Patient Position: Sitting; Cuff Location : Left Arm; Cuff Size: Standard 03-09-2014 11:51-0400 Heart rate 83 /min Ysabel Luna RN [place] [employer]. Comment on above: Pattern: Regular 03-09-2014 11:51-0400 Systolic blood pressure 122 mm[Hg] Ysabel Luna RN [employer]. Comment on above: Patient Position: Sitting; Cuff Location : Left Arm; Cuff Size: Standard 01-22-2014 09:41-0400 Body height 160.02 cm Rebeca Tatum LATRICE [employer]. 01-22-2014 09:41-0400 Body mass index (BMI) [Ratio] 26.57 kg/m2 Rebeca Tatum [facility].; [employer] [facility] 01-22-2014 09:41-0400 Body surface area Derived from formula 1.71 m2 Rebeca Tatum [facility] [employer] [facility] 01-22-2014 09:41-0400 Body temperature 98.1 [degF] Rebeca Tatum [facility] [employer], [place]. Comment on above: Method: Tympanic 01-22-2014 09:41-0400 Body weight 68.04 kg Rebeca Tatum [facility] [employer] [facility] 01-13-2014 13:11-0400 Body weight 68.04 kg Neilee L Vess [employer] [facility] [employer], [place]. 01-13-2014 13:11-0400 Diastolic blood pressure 72 mm[Hg] Neilee L Vess [employer] [facility] [place], [place]. Comment on above: Patient Position: Sitting; Cuff Location : Left Arm; Cuff Size: Standard 01-13-2014 13:11-0400 Heart rate 59 /min Neilee L Vess [employer] [facility] [employer] Comment on above: Pattern: Regular 01-13-2014 13:11-0400 Systolic blood pressure 110 mm[Hg] Neilee L Vess [employer] [facility] [place], [place]. Comment on above: Patient Position: Sitting; Cuff Location : Left Arm; Cuff Size: Standard 11-25-2013 14:43-0500 Body weight 69.4 kg Neilee L Vess [employer] [facility] [employer], [place]. 11-25-2013 14:43-0500 Diastolic blood pressure 73 mm[Hg] Neilee L Vess [employer] [facility] [place], [place]. Comment on above: Patient Position: Sitting; Cuff Location : Right Arm; Cuff Size: Standard 11-25-2013 14:43-0500 Heart rate 82 /min Neilee L Vess [employer] [facility] [employer]. Comment on above: Pattern: Regular 11-25-2013 14:43-0500 Systolic blood pressure 125 mm[Hg] Neilee L Vess [employer] [place], [place]. Comment on above: Patient Position: Sitting; Cuff Location : Right Arm; Cuff Size: Standard 10-14-2013 09:26-0500 Body temperature 97.6 [degF] Neilee L Vess [employer] [place]. Comment on above: Method: Tympanic 10-14-2013 09:26-0500 Body weight 68.04 kg Neilee L Vess [employer], [employer]. 10-14-2013 09:26-0500 Diastolic blood pressure 74 mm[Hg] Neilee L Vess [employer], [employer]. Comment on above: Patient Position: Sitting; Cuff Location : Left Arm; Cuff Size: Standard 10-14-2013 09:26-0500 Heart rate 102 /min Neilee L Vess [employer] [place], [employer]. Comment on above: Pattern: Regular 10-14-2013 09:26-0500 Systolic blood pressure 111 mm[Hg] Neilee L Vess [employer] [place], [employer]. Comment on above: Patient Position: Sitting; Cuff Location : Left Arm; Cuff Size: Standard Encounters Encounter Date Encounter Type Care Provider Facility Start: 06-10-2025 ambulatory [facility] Facility :[facility] Start: 05-14-2025 End: 05-14-[address] Jr Pacheco MD [facility] Start: 05-14-2025 End: 05-14-2025 ambulatory Rosemarie Olson PA-C Work Phone: [facility] Start: 01-09-2025 End: 03-26-2025 ambulatory JOYCE PAC [facility] Start: 12-18-2024 ambulatory MAT YORK ANA [facility] Start: 12-08-2024 End: 12-08-2024 Patient encounter procedure Joyce Montoya PA-C [facility] Start: 12-04-2024 End: 12-04-2024 ambulatory JOYCE PAC [facility] Start: 11-12-2024 End: 11-12-2024 Orders Joyce Montoya PA-C Work Phone[facility] Start: 10-30-2024 End: 10-30-2024 Medication Joyce Montoya PA-C Work Phone: [facility] [facility] Start: 10-24-2024 End: 10-24-2024 Orders Joyce Mont[facility]-C [facility] Start: 10-02-2024 End: 12-24-2024 ambulatory JOYCE PAC [facility] Start: 09-30-2024 End: 09-30-2024 ambulatory JOYCE PAC [facility] Start: 09-23-2024 End: 09-23-2024 Office outpatient visit 15 minutes Joyce Montoya PA-C Work Phone[facility] Start: 09-23-2024 Review Joyce Montoya P A-C Work Phone: [facility] [facility] Start: 09-22-2024 End: 09-22-2024 Telephone follow-up Joyce Montoya PA-C Work Phone: [facility] [facility] Start: 09-20-2024 End: 09-21-2024 Emergency department patient visit DEON TAYLOR [facility] Start: 07-21-2024 Review Joyce Montoya P A-C [facility]: [facility] Start: 07-20-2024 End: 07-20-2024 ambulatory MANJU ROBERT [facility] Start: 07-16-2024 End: 07-16-2024 Emergency department patient visit VEGA ROSADO [facility] Start: 07-14-2024 End: 07-15-2024 Orders Joyce Montoya PA-C Work Phone: [employer]. Start: 07-08-2024 Review Joyce Montoya P A-C Work Phone: [employer]. Start: 07-08-2024 End: 07-08-2024 Orders Joyce Montoya PA-C Work Phone: [employer]. Start: 07-07-2024 End: 07-07-2024 Orders Joyce Montoya PA-C Work Phone: [employer]. Start: 06-06-2024 ambulatory MANJU ROBERT [facility] Start: 01-15-2024 End: 01-15-2024 Medication Joyce Montoya PA-C Work Phone: [employer]. Start: 08-31-2023 End: 08-31-2023 Medication Joyce Montoya PA-C Work Phone: [employer]. Start: 08-27-2023 End: 08-27-2023 Office outpatient visit 15 minutes Joyce Montoya PA-C Work Phone: [employer]. Start: 08-20-2023 End: 08-20-2023 Office outpatient visit 15 minutes Joyce Montoya PA-C Work Phone: [employer]. Start: 07-17-2023 End: 07-17-2023 Office outpatient visit 15 minutes Joyce Montoya PA-C Work Phone: [employer]. Start: 05-28-2023 End: 05-28-2023 Orders Joyec Montoya PA-C Work Phone: [employer] Start: 05-28-2023 End: 05-28-2023 Telephone follow-up Joyce Montoya PA-C Work Phone: [employer] Start: 05-22-2023 End: 05-22-2023 Orders Joyce Montoya PA-C Work Phone: [employer] Start: 05-14-2023 End: 05-14-2023 Office outpatient visit 15 minutes Joyce Montoya PA-C Work Phone: [employer] Start: 03-14-2023 End: 03-14-2023 Office outpatient visit 15 minutes Joyce Montoya PA-C Work Phone: [employer] Start: 02-23-2023 End: 02-23-2023 Orders Joyce Motnoya PA-C Work Phone: [employer] Start: 02-19-2023 End: 02-19-2023 Orders Joyce Montoya PA-C Work Phone: [employer] Start: 02-12-2023 End: 02-12-2023 Office outpatient visit 15 minutes Joyce Montoya PA-C Work Phone: [employer] Start: 02-05-2023 End: 02-05-2023 Orders Joyce Montoya PA-C Work Phone: [employer] Start: 02-02-2023 End: 02-02-2023 Orders Joyce Montoya PA-C Work Phone: [employer] Start: 01-29-2023 End: 01-30-2023 Orders Joyce Montoya PA-C Work Phone: [employer] Start: 01-26-2023 End: 01-26-2023 Office outpatient visit 15 minutes Joyce Montoya PA-C Work Phone: [employer] Start: 07-10-2022 End: 07-10-2022 Office outpatient visit 25 minutes Joyce Montoya PA-C Work Phone: [employer] Start: 06-29-2022 End: 06-29-2022 Office outpatient visit 10 minutes Joyce Montoya PA-C Work Phone: [employer] Start: 03-23-2022 End: 03-23-2022 Orders Joyce Montoya PA-C Work Phone: [employer] Start: 03-20-2022 End: 03-20-2022 Office outpatient visit 25 minutes Joyce Montoya PA-C Work Phone: [employer]. Start: 11-15-2021 End: 11-15-2021 Patient encounter procedure Joyce Montoya PA-C Work Phone: [employer] Start: 10-20-2021 End: 10-20-2021 Office outpatient visit 15 minutes Joyce Montoya PA-C Work Phone: [employer] Start: 08-31-2021 End: 08-31-2021 Telephone follow-up Joyce Montoya PA-C Work Phone: [employer] Start: 08-24-2021 End: 08-24-2021 Telephone follow-up Joyce Montoya PA-C Work Phone: [employer] Start: 01-17-2021 End: 01-17-2021 Office outpatient visit 10 minutes Joyce Montoya PA-C Work Phone: [employer] Start: 01-12-2021 End: 01-12-2021 Telephone follow-up Joyce Montoya PA-C Work Phone: [employer] Start: 12-30-2020 End: 12-30-2020 Telephone follow-up Joyce Montoya PA-C Work Phone: [employer] Start: 11-02-2020 End: 11-02-2020 Medication Joyce Montoya PA-C Work Phone: [employer] Start: 08-31-2020 End: 08-31-2020 Patient encounter procedure Joyce Montoya PA-C Work Phone: [employer] Start: 08-24-2020 End: 08-24-2020 Patient encounter procedure Joyce Montoya PA-C Work Phone: [employer] Start: 05-18-2020 End: 05-18-2020 Telephone follow-up Joyce Montoya PA-C Work Phone: [employer] Start: 05-12-2020 End: 05-12-2020 Patient encounter procedure Joyce Montoya PA-C Work Phone: [employer] Start: 05-11-2020 End: 05-11-2020 Office outpatient visit 10 minutes Joyce Montoya PA-C Work Phone: [employer] Start: 11-19-2019 End: 11-19-2019 Telephone follow-up Joyce Montoya PA-C Work Phone: [employer] Start: 11-18-2019 End: 11-18-2019 Patient encounter procedure Joyce Montoya PA-C Work Phone: [employer] Start: 07-23-2019 End: 07-23-2019 Telephone follow-up Joyce Montoya PA-C Work Phone: [employer] Start: 07-22-2019 End: 07-22-2019 Patient encounter procedure Joyce Montoya PA-C Work Phone: [employer] Start: 07-15-2019 End: 07-15-2019 Telephone follow-up Joyce Montoya PA-C Work Phone: [employer] Start: 07-14-2019 End: 07-14-2019 Office outpatient visit 40 minutes Joyce Montoya PA-C Work Phone: [employer] Start: 06-04-2019 End: 06-04-2019 Office outpatient visit 25 minutes Joyce Montoya PA-C Work Phone: [employer] Start: 03-17-2019 End: 03-17-2019 Telephone follow-up Joyce Montoya PA-C Work Phone: [employer] Start: 03-03-2019 End: 03-03-2019 Office outpatient visit 15 minutes Joyce Montoya PA-C Work Phone: [employer]. Start: 02-17-2019 End: 02-17-2019 Telephone follow-up Joyce Montoya PA-C Work Phone: [employer]. Start: 10-31-2018 End: 11-04-2018 Orders Joyce Montoya PA-C Work Phone: [employer]. Start: 10-31-2018 End: 10-31-2018 Office outpatient visit 15 minutes Joyce Montoya PA-C Work Phone: [employer] Start: 10-10-2018 End: 10-10-2018 Telephone follow-up Joyce Montoya PA-C Work Phone: [employer] Start: 10-02-2018 End: 10-02-2018 Telephone follow-up Joyce Montoya PA-C Work Phone: [employer] Start: 04-04-2018 End: 04-04-2018 Office outpatient visit 15 minutes Joyce Montoya PA-C Work Phone: [employer] Start: 03-11-2018 End: 03-11-2018 Office outpatient visit 10 minutes Joyce Montoya PA-C Work Phone: [employer] Start: 12-18-2017 End: 12-18-2017 Orders Joyce Montoya PA-C Work Phone: [employer]. Start: 12-17-2017 End: 12-17-2017 Office outpatient visit 10 minutes Joyce Montoya PA-C Work Phone: [employer] Start: 12-10-2017 End: 12-10-2017 Orders Joyce Montoya PA-C Work Phone: [employer] Start: 11-29-2017 End: 11-29-2017 Orders Joyce Montoya PA-C Work Phone: [employer] Start: 09-13-2017 End: 09-13-2017 Patient encounter procedure Joyce Montoya PA-C Work Phone: [employer] Start: 09-11-2017 End: 09-11-2017 Office outpatient visit 10 minutes Joyce Montoya PA-C Work Phone: [employer] Start: 07-26-2017 End: 07-26-2017 Telephone follow-up Joyce Montoya PA-C Work Phone: [employer]. Start: 07-26-2017 End: 07-30-2017 Office outpatient visit 15 minutes Joyce Montoya PA-C Work Phone: [employer] Start: 07-24-2017 End: 07-24-2017 Patient encounter procedure Joyce Montoya PA-C Work Phone: [employer] Start: 06-19-2017 End: 06-19-2017 Patient encounter procedure Joyce Montoya PA-C Work Phone: [employer]. Start: 11-24-2016 End: 11-24-2016 Medication Joyce Montoya PA-C Work Phone: [employer] Start: 11-07-2016 End: 11-07-2016 Patient encounter procedure Joyce Montoya PA-C Work Phone: [employer] Start: 08-28-2016 End: 08-30-2016 Patient encounter procedure Joyce Montoya PA-C Work Phone: [employer]. Start: 08-23-2016 End: 08-23-2016 Orders Joyce Montoya PA-C Work Phone: [employer] Start: 08-22-2016 End: 08-22-2016 Historical Summary Joyce Montoya PA-C Work Phone: [employer] Start: 07-19-2016 End: 07-19-2016 Orders Joyce Montoya PA-C Work Phone: [employer]. Start: 06-06-2016 End: 06-06-2016 Patient encounter procedure Joyce Montoya PA-C Work Phone: [employer]. Start: 04-10-2016 End: 04-10-2016 Patient encounter procedure Joyce Montoya PA-C Work Phone: [employer] Start: 10-27-2015 End: 10-27-2015 Patient encounter procedure Joyce Montoya PA-C Work Phone: [employer] Start: 09-29-2015 End: 09-29-2015 Orders Joyce Montoya PA-C Work Phone: [employer] Start: 09-27-2015 End: 09-27-2015 Office outpatient visit 15 minutes Joyce Montoya PA-C Work Phone: [employer] Start: 04-15-2015 End: 04-15-2015 Patient encounter procedure Joyce Montoya PA-C Work Phone: [employer] Start: 09-29-2014 End: 09-29-2014 Patient encounter procedure Joyce Montoya PA-C Work Phone: [employer] Start: 09-08-2014 End: 09-08-2014 Patient encounter procedure Joyce Montoya PA-C Work Phone: [employer] Start: 06-16-2014 End: 06-16-2014 Patient encounter procedure Joyce Montoya PA-C Work Phone: [employer] Start: 05-13-2014 End: 05-13-2014 Patient encounter procedure Joyce Montoya PA-C Work Phone: [employer] Start: 03-25-2014 End: 03-25-2014 Patient encounter procedure Joyce Montoya PA-C Work Phone: [employer] Start: 03-13-2014 End: 03-13-2014 Orders Joyce Montoya PA-C Work Phone: [facility] [employer] Start: 03-09-2014 End: 03-09-2014 Patient encounter procedure Joyce Montoya PA-C Work Phone: [employer] Start: 01-22-2014 End: 01-22-2014 Patient encounter procedure Joyce Montoya PA-C Work Phone: [employer] Start: 01-13-2014 End: 01-13-2014 Patient encounter procedure Joyce Montoya PA-C Work Phone: [employer]. Start: 12-04-2013 End: 12-04-2013 Orders Joyce Montoya PA-C Work Phone: [employer] Start: 12-03-2013 End: 12-03-2013 Orders Joyce Montoya PA-C Work Phone: [employer] Start: 11-25-2013 End: 11-25-2013 Patient encounter procedure Joyce Montoya PA-C Work Phone: [employer] Start: 10-14-2013 End: 10-14-2013 Patient encounter procedure Joyce Montoya PA-C Work Phone: [employer] Procedures Date Procedure Procedure Detail Performing Clinician Start: 11-12-2024 End: 12-08-2024 Mri any jt upper extremity w/o contrast matrl Joyce J Montoya PA-C Work Phone: Start: 09-20-2024 Urinalysis JOYCE BE AN Comment on above: Result Comment: URIN ALYSIS Performed By: #### [id number] #### [address] [address] Start: 07-16-2024 Urinalysis JOYCE BE AN Comment on above: Result Comment: URIN ALYSIS Performed By: #### [id number] #### [facility],[address] [place], [place] [id number] Start: 10-01-2023 End: 10-01-2023 Ligation of fallopian tube Roro Wai SANTOS Start: 08-20-2023 End: 08-21-2023 Radex shoulder complete minimum 2 views Joyce Duran Montoya PA-C Work Phone: Start: 02-12-2023 End: 02-12-2023 No Known Past Surgical History Roro Carreno MA Start: 07-10-2022 End: 07-10-2022 Shaving skin lesion 1 trunk/arm/leg diam 0.5cm/< Joyce J Montoya PA-C Work Phone: Start: 03-23-2022 End: 10-10-2023 Injection Joyce Duran Montoya PA-C Work Phone: Start: 03-23-2022 End: 10-10-2023 Injection of steroid Joyce Duran Montoya PA-C Work Phone: Start: 08-24-2020 End: 08-31-2020 Radex spine thoracic 2 views Rosemarie Olson PA-C Work Phone: Start: 08-24-2020 End: 08-31-2020 Ct limited/localized follow up study Rosemarie Olson PA-C Work Phone: Start: 05-11-2020 End: 05-12-2020 Radex foot complete minimum 3 views Rosemarie Olson PA-C Work Phone: Start: 06-04-2019 End: 06-04-2019 Pressurized/nonpressurized inhalation treatment Rosemarie Olson PA-C Work Phone: Comment on above: PO RA s/p treatment - 99%Exam s/p treatment - rales cleared, faint ronchi occasionally Start: 10-31-2018 End: 10-31-2018 Radiologic exam knee complete 4/more views Rosemarie Olson PA-C Work Phone: Start: 12-18-2017 End: 12-29-2017 Mri spinal canal lumbar w/o contrast material Rosemarie Olson PA-C Work Phone: Start: 12-17-2017 End: 12-17-2017 Body mass index documented Rosemarie Samuel Hi lls PA-C Work Phone: Start: 09-11-2017 End: 09-12-2017 Radex sacrum & coccyx minimum 2 views Rosemarie Samuel Whitney PA-C Work Phone: Start: 09-11-2017 End: 09-11-2017 Body mass index documented Rosemarie Samuel Hi lls PA-C Work Phone: Start: 07-24-2017 End: 07-24-2017 Body mass index documented Rosemarie Samuel Hi lls PA-C Work Phone: Start: 03-13-2014 End: 03-18-2014 Mri any jt lower extrem w/o contrast matrl Manju Head PA-C Work Phone: Start: 12-03-2013 End: 12-05-2013 Radex orbits complete minimum 4 views Tramaine Ross MD Work Phone: Start: 11-25-2013 End: 12-03-2013 Mri any jt lower extrem w/o contrast matrl Rosemarie Samuel Whitney PA-C Work Phone: Plan of Treatment Date Care Activity Detail Author Start: 05-14-2025 Plain X-ray of shoulder Shoulder min 2 Views [facility] Start: 05-14-2025 XR Shoulder GE 2 Views [facility] Start: 11-12-2024 End: 11-27-2024 Mri any jt upper extremity w/o contrast matrl [employer]. Start: 10-24-2024 Mri any jt upper extremity w/o contrast matrl Shoulder,Right MRI W/O Contrast (78362) Start: 24-Oct-2024 Intent [employer]. Start: 09-23-2024 Patient encounter procedure Medical; EXTENDED RTN - ERFU right shoulder pain, UTI 09/20, RJB [employer]. Start: 23-Sep-2024 08:40-05:00 MIRA Montoya Appointment Request [employer] Start: 07-22-2024 Patient encounter procedure Medical; US OB ULTRASOUND - viability scan [employer]. Start: 22-Jul-2024 16:20-04:00 AUDELIA Carter Appointment Request [employer] Start: 07-14-2024 Nursing evaluation of patient and report Medical; Nurse visit - Quant--CKU [employer]. Start: 14-Jul-2024 13:00-04:00 NURSE, FLOAT Appointment Request [employer] Start: 07-07-2024 Assay of progesterone PROGESTERONE (16090) Start: 07-Jul-2024 Request [employer]; [employer]. Start: 07-07-2024 Gonadotropin chorionic quantitative QUANTITATIVE HCG ([id number]) Start: 07-Jul-2024 Request [employer].; [employer]. Start: 07-07-2024 Nursing evaluation of patient and report Medical; Nurse visit - labs for cku [employer]. Start: 07-Jul-2024 11:10-04:00 NURSE, FLOAT Appointment Request [employer]. Start: 05-22-2023 End: 05-22-2023 Us pelvic nonobstetric real-time image complete Pelvic Ultrasound ([id number]) Date: 22-May-2023 [employer]. Start: 03-23-2022 Dexamethasone sodium phos Dexamethasone sodium (Decadron) injection, 4mg/ml (J1100) Start: 23-Mar-2022 Intent [employer]. Start: 03-23-2022 Triamcinolone acet inj NOS Kenalog injection, 60mg/1.5ml ([id number]) Start: 23-Mar-2022 Intent [employer] Start: 08-24-2020 Radex spine lumbosacral 2/3 views Lumbo Sacral AP/LAT Start: 24-Aug-2020 Intent [employer].; [employer]. Start: 12-10-2017 End: 12-18-2017 Ct pelvis w/o contrast material COMPUTED TOMOGRAPHY OF COCCYX WITHOUT CONTRAST ([id number]) Date: 10-Dec-2017 [employer] Start: 09-27-2015 Provider Instructions for Treatment Saline gargles Indication: Pharyngitis, acute Start: 27-Sep-2015 Instruction Type: Provider Instructions for Treatment [employer]. dexAMETHasone so d phos (bulk) 100 % powder Ordered: 23-Mar-2022 MIRA Montoya [employer] Payers Date Payer Category Payer Private Health Insurance [id number] 2025 Self-pay 1990 Unknown [id number] 651 1990 Unknown [id number]. 651 1990 Unknown [id number] [id number]. 651 1990 Unknown [id number] [id number]. 651 1990 Unknown [id number] 2.16.840.1.464629.3.579.2. 651 1990 Unknown [id number] 2.16.840.1.219086.3.579.2. 651 1990 Unknown [id number] 2.16.840.1.586074.3.579.2. 651 1990 Unknown [id number] 2.16.840.1.859306.3.579.2. 651 1990 Unknown [id number] [id number]. 651 Unknown [facility] Unknown [id number] Unknown [id number] [id number]. 462 Unknown [id number] 2.16.840.1.916255.3.579.2. 462 Unknown [id number]. 462 Social History Date Type Detail Facility Tobacco Use: Tobacco Use: ; C urrent every day smoker. [facility] Start: 1990 Female [facility] Work Phone: Start: 03-16-2021 Tobacco smoking stat [facility] Current Light tobacco smoker [facility] Clinical Note 09-21-2024 Note Date & Type Note Facility 09-21-2024 Note Discharge Instructio ns Discharge Summary [facility] [address] [place] [address] [id number] 09/20/2024 Patient: CANDIE ALCARAZ Sex: Female : 1990 Age: 33y Thank you for visiting [facility]. You have been evaluated today by Deon Juarez D.O. for the following condition(s): Principal Diagnosis Acute urinary tract infection with cystitis. No hematuria. Not associated with indwelling catheter. (right shoulder pain). INSTRUCTIONS No strenuous activity. Warnings: GENERAL WARNINGS: Return or contact your physician immediately if your condition worsens or changes unexpectedly, if not improving as expected, or if other problems arise. Prescription Medications: Bactrim DS 800 mg-160 mg tablet: Take 1 tablet by mouth twice a day for 10 days, dispense 20 tablet. Refills 0. Pharmacy: [facility] [id number] [place] [address]. ketorolac 10 mg tablet: Take 1 tablet by mouth every eight hours as needed for pain for 5 days, dispense 15 tablet. Refills 0. Pharmacy: [facility] [id number] [place] [address]. Understanding of the discharge instructions verbalized by patient. 1 of 3 Discharge Instructions Follow-up with: TERESE Larios, [facility], Phone: [phone], [address] [place] [address]. Follow up in three days even if well. Call for an appointment. Reason for referral: evaluation and treatment. Summary of care provided to patient. Patient Signature Facility Telephone Order Supervisor Date/Time General Instructions with [employer] [address] [place] [address] [id number] 09/20/2024 Patient: CANDIE ALCARAZ Sex: Female : 1990 Age: 33y Thank you for visiting [facility]. You have been evaluated today by Deon Juarez D.O. for the following condition(s): Principal Diagnosis Acute urinary tract infection with cystitis. No hematuria. Not associated with indwelling catheter. (right shoulder pain). INSTRUCTIONS No strenuous activity. Warnings: GENERAL WARNINGS: Return or contact your physician immediately if your condition worsens or changes unexpectedly, if not improving as expected, or if other problems arise. Prescription Medications: 2 of 3 Discharge Instructions Bactrim DS 800 mg-160 mg tablet: Take 1 tablet by mouth twice a day for 10 days, dispense 20 tablet. Refills 0. Pharmacy: [facility] [id number] [place] [address]. ketorolac 10 mg tablet: Take 1 tablet by mouth every eight hours as needed for pain for 5 days, dispense 15 tablet. Refills 0. Pharmacy: [facility] [id number] [place] [address]. Understanding of the discharge instructions verbalized by patient. Follow-up with: TERESE Larios, [facility], [facility], Phone: [phone], [address] [place] [address]. Follow up in three days even if well. Call for an appointment. Reason for referral: evaluation and treatment. Summary of care provided to patient. Activities Restrictions [address] [place] [address] [id number] 09/20/2024 Patient: CANDIE ALCARAZ Sex: Female : 1990 Age: 33y You have been given the following instructions regarding activity, work, and/or school. No strenuous activity. Facility Telephone Order Supervisor 3 of 3 [facility] Clinical Note 07-20-2024 Note Date & Type Note Facility 07-20-2024 Note Discharge Instructio ns Discharge Summary [address] [place] [address] [id number] 07/20/2024 Patient: CANDIE ALCARAZ Sex: Female : 1990 Age: 33y Thank you for visiting [facility]. You have been evaluated today by Harvey Charles D.O. for the following condition(s): Principal Diagnosis Acute nontraumatic pain in the pelvis. Probable ovarian ectopic ; positive test in emergency department. INSTRUCTIONS (to OR for possible ectopic ). You have been given the following additional information: Abdominal Pain and Early Patient Signature Facility Telephone Order Supervisor Date/Time 1 of 6 Discharge Instructions General Instructions with [employer] [address] [address] [phone] 07/20/2024 Patient: CANDIE ALCARAZ Sex: Female : 1990 Age: 33y Thank you for visiting [facility]. You have been evaluated today by Harvey Charles D.O. for the following condition(s): Principal Diagnosis Acute nontraumatic pain in the pelvis. Probable ovarian ectopic ; positive test in emergency department. INSTRUCTIONS (to OR for possible ectopic ). ADDITIONAL INFORMATION Abdominal Pain and Early The tests you had show that you are , but the exact cause of your pain isn't clear. 2 of 6 Discharge Instructions Some pain and bleeding are common early in . Often they stop, and you can go on to have a normal and baby. Other times the pain or bleeding can be signs of a miscarriage or ectopic . An ectopic is a very serious problem. At this time it is unclear if your will continue normally, if you will have a miscarriage, or if you could have an ectopic . Below is some information about this. Miscarriage At this time we don't know whether you will have a miscarriage, or if things will clear up and your will continue normally. We understand that this is emotionally difficult. There is little we can say to change the way you feel. But understand that miscarriages are common. About 1 or 2 out of every [address] Some end even before you know you are . This happens for a number of reasons, and usually we never figure out why. It's important you know that it is not your fault. It didn't happen because you did anything wrong. Having sex or exercising does not cause a miscarriage. These activities are usually safe unless you have pain or bleeding or your healthcare provider tells you to stop. Even minor falls won't cause a miscarriage. Miscarriages happen because things were not developing as they were supposed to. No medicine can prevent a miscarriage. Ectopic In a normal , the fertilized egg attaches to the wall of the womb (uterus). In an ectopic or tubal , the fertilized egg attaches outside the uterus, usually in the fallopian tube. Very rarely, the egg attaches to an ovary or somewhere else in the abdomen. An ectopic is much less common than a miscarriage, but it is very serious. The baby can't survive, and as it grows it can rupture the tube. This can cause internal bleeding and even . Risk factors for an ectopic are: An ectopic in the past Pelvic inflammatory disease (PID) Endometriosis Smoking An IUD 3 of 6 Discharge Instructions Additional tests Because we don't know what's causing your symptoms, you will need more tests to figure out what the problem is. You may need the following. Ultrasound An ultrasound can usually find a normal as early as 4 to 5 weeks along. If the ultrasound does not show the baby inside the uterus, it means one of the following. You have a normal less than 4 weeks along You are having or recently had a miscarriage You have an ectopic Quantitative HCG This test measures the amount of a hormone in your blood. Comparing today's test result to a repeat test in 2 days will show whether you have a normal . Laparoscopy This is a type of surgery. The healthcare provider will put a tube with a light inside your belly (abdomen) to look directly at your pelvic organs. This test is used when it is not safe to wait 2 days for blood test results. Important information If you do have an ectopic , there is a small chance that the growing fetus can tear the fallopian tube. This can cause severe internal bleeding. If this happens, you may have: Sudden severe pain in your lower abdomen Vaginal bleeding Weakness, dizziness, and sometimes fainting If any of these symptoms occur: Call 911or return right away to (more content not included)... [facility] Clinical Note 07-16-2024 Note Date & Type Note Facility 07-16-2024 Note Discharge Instructio ns Discharge Summary [address] [place] [address] [id number] 07/16/2024 Patient: CANDIE ALCARAZ Sex: Female : 1990 Age: 33y Thank you for visiting [facility]. You have been evaluated today by Vega Rosado D.O. for the following condition(s): Principal Diagnosis Vomiting with nausea, dehydration and volume depletion. Moderate hyperemesis gravidarum less than 21 weeks with volume depletion and dehydration. INSTRUCTIONS Follow-up with: Jennie Carter CNM, [facility], [facility], , [address] [place] [address]. Follow up in two days. TERESE Larios, [facility], , [address] [place] [address]. Follow up in five. You have been given the following additional information: Vomiting (Adult) Hyperemesis Gravidarum Patient Signature Facility Telephone Order Supervisor Date/Time 1 of 5 Discharge Instructions General Instructions with [employer] [address] [place] [address] [id number] 07/16/2024 Patient: CANDIE ALCARAZ Sex: Female : 1990 Age: 33y Thank you for visiting [facility]. You have been evaluated today by Vega Rosado D.O. for the following condition(s): Principal Diagnosis Vomiting with nausea, dehydration and volume depletion. Moderate hyperemesis gravidarum less than 21 weeks with volume depletion and dehydration. INSTRUCTIONS Follow-up with: Jennie Carter CNM, [facility], , [address] [place] [address]. Follow up in two days. TERESE Larios, [facility], , [address] [place] [address]. Follow up in five. ADDITIONAL INFORMATION Vomiting (Adult) Vomiting is a common symptom that may be due to different causes. These include gastroenteritis (stomach flu), food poisoning and gastritis. There are other more serious causes of vomiting which may be hard to diagnose early in the illness. Therefore, it is important to watch for the warning signs listed below. The main danger from repeated vomiting is dehydration. This is due to excess loss of water and minerals from the body. When this occurs, your body fluids must be replaced. Home care If symptoms are severe, rest at home for the next 24 hours. 2 of 5 Discharge Instructions Because your symptoms may be from an infection, wash your hands often and well. If soap and water are not available, use alcohol-based vinyl dipper to keep from spreading the infection to others. Wash your hands for at least 20 seconds. Humming the happy birthday song twice while you wash is an easy way to make sure you've washed for 20 seconds. Wash your hands after using the toilet, before and after preparing food, before eating food, after changing a diaper, cleaning a wound, caring for a sick person, and blowing your nose, coughing, or sneezing. You should also wash your hands after caring for someone who is sick, touching pet food, or treats, and touching an animal, or animal waste. You may use acetaminophen or NSAID medicines like ibuprofen or naproxen to control fever, unless another medicine was prescribed. If you have chronic liver or kidney disease or ever had a stomach ulcer or gastrointestinal bleeding, talk with your doctor before using these medicines. Aspirin should never be used in anyone under 18 years of age who is ill with a fever. It may cause severe liver damage. Don't use NSAID medicines if you are already taking one for another condition (like arthritis) or are on aspirin (such as for heart disease, or after a stroke) Don't use tobacco and or drink alcohol, which may worsen your symptoms. If medicines for vomiting were prescribed, take as directed. Once vomiting stops, then follow these guidelines: During the first 12 to 24 hours follow the diet below: Fruit juices. Apple, grape juice, clear fruit drinks, and electrolyte replacement drinks. Beverages. Soft drinks without caffeine; mineral water (plain or flavored), decaffeinated tea and coffee. Soups. Clear broth and bouillon Desserts. Plain gelatin, ice pops, and fruit juice bars. As you feel better, you may add 6 to 8 ounces of yogurt per day. During the next 24 hours you may add the following to the above: Hot cereal, plain toast, bread, rolls, crackers Plain noodles, rice, mashed potatoes, chicken noodle or rice soup Unsweetened canned fruit such as applesauce, bananas (avoid pineapple and citrus) Limit caffeine and chocolate. No spices or seasonings except salt. During the next 24 hours: Gradually resume a normal diet, as you feel better and your symptoms lessen. 3 of 5 Discharge Instruction (more content not included)... [facility] Evaluation note Note Date & Type Note Facility Evaluation note Diagnosis Onset Date Resolution Right shoulder pain acute Augus t 2024 12:50pm [facility] Work Phone: Reason for referral (narrative) Note Date & Type Note Facility Reason for referral (narrative) No reason for referral information available [facility] Work Phone: Summary Purpose Family History No Family History Records FoundNo Family History Records FoundNo Family History Records FoundNo Family History Records Found Advance Directives No Advanced Directives Records FoundNo Advanced Directives Records FoundNo Advanced Directives Records FoundNo Advanced Directives Records Found Chief Complaint and Reason for Visit Chief Complaint Admit Date RIGHT SHOULDER May 14, 2025 12 :50pm Room 1 May 14, 2025 1: 04pm Reason for Visit Admit Date Right shoulder pain May 14, 2025 12 :50pm Additional Source Comments INFORMATION SOURCE (unrecogn ized section and content) DATE CREATED AUTHOR 07/16/2024 [facility] DATE CREATED AUTHOR AUTHOR'S ORGANIZ ATION 07/26/2024 [facility] DATE CREATED AUTHOR AUTHOR'S ORGANIZ ATION 03/27/2025 [facility] DATE CREATED AUTHOR AUTHOR'S ORGANIZ ATION 06/09/2025 [facility] Care Teams (unrecognized sec tion and content) Team Status: Active Member Role/Relationship Status Dates Rosemarie Seville PA, PA-C Family Provider Active Rosemarie Olson PA, PA-C Primary Care Provider Active Team Status: Active Member Role/Relationship Status Dates Rosemarie Olson PA, PA-C Primary Care Provider Active Start: May 14, 2025 Rosemarie Olson PA, PA-C Referring Provider Active Start: May 14, 2025 Tramaine Fuentes MD Attending Provider Active St art: May 14, 2025 Team Status: Inactive Member Role/Relationship Status Dates Rosemarie Olson PA, PA-C Primary Care Provider Active Start: May 14, 2025 End: May 14, 2025 Dr. Jr Pacheco MD Attending Provider Active S tart: May 14, 2025 End: May 14, 2025 Team Status: Inactive Member Role/Relationship Status Dates Rosemarie Olson PA, PA-C Primary Care Provider Active Start: May 14, 2025 End: May 14, 2025 Rosemarie Olson PA, PA-C Referring Provider Active Start: May 14, 2025 End: May 14, 2025 Tramaine Fuentes MD Attending Provider Active St art: May 14, 2025 End: May 14, 2025 Goals (unrecognized section and content) Goals may be documented in a n alternate sectionGoals may be documented in an alternate section FOR RECORDS PERTAINING TO PATIENTS WHO ARE OR HAVE BEEN ENROLLED IN A CHEMICAL DEPENDENCY/SUBSTANCEABUSE PROGRAM, SOME INFORMATION MAY BE OMITTED. This clinical summary was aggregated from multiple sources. Caution should be exercised in using it in the provision of clinical care. This summary normalizes information from multiple sources, and as a consequence, information in this document may materially change the coding, format and clinical context of patient data. In addition, data may be omitted in some cases. CLINICAL DECISIONS SHOULD BE BASED ON THE PRIMARY CLINICAL RECORDS. [facility]. provides no warranty or guarantee of the accuracy or completeness of information in this document.
[2025-06-10] MEDS: Lactated Ringers 1,000 ML 15 ML IV (06:01)
--- NOTE | 2025-06-10 06:58 | PRE.ANES_ITS ---
ASA Classification* ASA Classification ASA Classification: 1 Assessment & Plan Anesthesia* Anesthesia Assessment Anesthesia Assessment: Discussed sedation and/or anesthesia options, risks, benefits, and alternatives with patient/parents/legal guardian/POA. Questions invited. The patient/parents/legal guardian/POA seems to understand and agrees to proceed with anesthesia plan. Reviewed the physical assessment, medical history, allergy history and patient home medications list prior to surgery/procedure/anesthetic and documented any changes. Performed airway and anesthesia risk assessments. 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 When Was Last Pacemaker Check QUESTION #4 FULL TEXT: You/Your Family Experience fever (hyperthermia) with Anesthesia Last Oral Intake Last Oral intake: Last Oral Intake NPO since 00:00 06/10/25 05:57 Meds taken in AM with sips of No 06/10/25 05:57 water? Meds patient instructed to take am of surgery PONV PONV - outdoor advertising leasing agent: PONV - outdoor advertising leasing agent Female Yes 05/27/25 11:15 HX of Motion Sickness Yes 05/27/25 11:15 HX of N/V After Surgery No 05/27/25 11:15 Non-Smoker No 05/27/25 11:15 Duration of Surgery greater Yes 05/27/25 11:15 than 60 minutes Number of Risk Factors 3 05/27/25 11:15 PONV Score Moderate Risk 05/27/25 11:15 Height & Weight Height & Weight: Anesthesia: Height & Weight Height 5 ft 3 in 06/10/25 05:57 Weight: 65 kg 06/10/25 05:57 Body Mass Index (BMI) 25.4 06/10/25 05:57 Respiratory Assessment Respiratory Assessment - outdoor advertising leasing agent: Respiratory Tract Infection Hx - outdoor advertising leasing agent Hx Respiratory Tract Infection No 05/27/25 11:15 STOP Sleep Apnea STOP Sleep Apnea - outdoor advertising leasing agent: STOP Sleep Apnea - outdoor advertising leasing agent Hx Hypertension No 05/27/25 11:15 Hx Sleep Apnea No 05/27/25 11:15 CPAP BIPAP Do you snore loudly (louder No 05/27/25 11:15 than talking or can be heard Do you often feel tired/ No 05/27/25 11:15 fatigued/ sleepy during daytime? Has anyone observed you stop No 05/27/25 11:15 breathing during sleep? STOP Results Negative 05/27/25 11:15 QUESTION #5 FULL TEXT : Do you snore loudly (louder than talking or can be heard through closed doors)? 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 Specify any problems Hx of Preganancy in last 3 No 05/27/25 11:15 Months Nurse Filling Out Transfusion DSCHRIBER 05/27/25 11:15 & Questions: Date: 05/27/25 05/27/25 11:15 Time: 11:16 05/27/25 11:15 Patient unable to answer at this time (ie. confused, unrespo /Reproduction History /Reproductive History - outdoor advertising leasing agent: /Reproductive Hx- outdoor advertising leasing agent Hx Now No 05/27/25 11:15 Gestational Age (in weeks): EDC: Hx Hx Para Hx Section SAB No 05/27/25 11:15 Active Medications Active Medications: Current Medications Generic Name Dose Route Start Last Admin Trade Name Freq PRN Reason Stop Dose Admin Cefazolin Sodium 2 gm/ Sodium 110 mls @ 200 mls/hr 06/10/25 07:30 Chloride IV 06/10/25 08:02 INTRAOP ONE Lactated Ringer's 1,000 mls @ 15 mls/hr 06/10/25 05:45 06/10/25 06:01 IV 15 mls/hr .Q48H JULIANA Administration PFSH Medical History Smoker Right rotator cuff tear Right shoulder pain Home Medications ?Medication ?Instructions ?Recorded ?Last Taken ?Type acetaminophen-pamabrom 500 mg-25 1 tab PO Q6H PRN mens trual pain 05/14/25 Unknown History mg tablet (Midol) Allergy/AdvReac Type Severity Reaction Status Date / Time No Known Allergies Allergy Verified 06/10/25 05:40 Surgical History Surgical history of tubal ligation H/O knee surgery Social History Smoking Status: Light Smoker (<10/day) alcohol intake: never substance use type: does not use caffeine: Yes frequency: 1-2 times per week seatbelt use: never do you feel safe at home: Yes additional social history: Frank- ([facility]) Patient works at [employer] Review of Systems (Anesthesia) ROS Narrative System reviewed and no additional complaints, except as documented.
--- NOTE | 2025-06-10 07:12 | HP.PCM_ITS ---
HPI - General HPI Narrative CANDIE ALCARAZ, is a 34 F who presents for right shoulder arthroscopy, subacromial decompression, rotator cuff repair. no change to h and p. right shoulder marked. rab, post op instructions and narcotic counselling. ok to proceed. plan for a block. no further questions. MR#: [id number] Acct: [id number] Name: CANDIE ALCARAZ Rep #: [id number] : 1990 Provider: Dr. Tramaine Fuentes MD Age/Sex: 34/F Location: [facility] [place] Status: Signed Intake Vital Signs 02/08/2113:20 05/14/2512:57 Height 5 ft 3 in 5 ft 3 in Weight: 147 lb 2 oz BMI 26.0 Intake Visit Reasons: RIGHT SHOULDER Chief Complaint: Right shoulder pain Accompanied by: Self Is patient in pain?: Yes Pain scale (1-10): 8 Allergies No Known Allergies Allergy (Verified 05/14/25 13:00) Medications ?Medication ?Instructions ?Recorded ?Confirmed ?Type acetaminophen-pamabrom 500 mg-25 1 tab PO Q6H PRN 05/14/25 05/14/25 Histo ry mg tablet (Midol) Have you fallen in the past year?: No PFSH Medical History (Updated 05/14/25 @ 13:32 by Tramaine Fuentes MD) Right rotator cuff tear Right shoulder pain Surgical History Surgical history of tubal ligation H/O knee surgery Social History Smoking Status: Light Smoker (<10/day) alcohol intake: never substance use type: does not use caffeine: Yes frequency: 1-2 times per week seatbelt use: never do you feel safe at home: Yes additional social history: Frank- ([facility]) Patient works at [employer] HPI RIGHT SHOULDER Details: This documentation accurately reflects the service provided and the decisions made by me, Dr. Tramaine Fuentes MD 05/14/25 1053. Part of today?s visit was documented by [ ], acting as scribe. CANDIE ALCARAZ is a 34 year old F here today for R shoulder pain, NEED XR. work at [employer]. RHD. anterior / lat pain. loses strength. no numbness. going down the arm. 1 year hx. no injury. going to the back. did 6 weeks of PT at [place] and for the neck as well. POS night time symptoms, never had it before. no surgery on the shoulder. 1/2 PPD smoker. Supplemental Info R shoulder xr 4 view - nil acute. normal GH joint space. MRI of the right shoulder without contrast on 12/04/2024 radiologist conclusion 1. Articular surface tear of the supraspinatus tendon. 2. Interstitial tear of the supraspinatus muscle at the myotendinous junction. 3. 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 I independently reviewed the imaging. Concur with radiologist report. Coding Level of Care Code Off vis,new,level 4 Diagnoses Right shoulder pain M25.511 Right rotator cuff tear M75.101 Assessment and Plan Assessment and Plan (1) Right shoulder pain: Status: Acute Plan: CANDIE ALCARAZ is a 34 year old F here today for R shoulder pain, patient has a small partial articular surface tear of the supraspinatus tendon. This is likely causing her shoulder pain. The patient failed 3 months of physical therapy. Patient is not interested in further conservative management including declining cortisone injections and other continue nonoperative management. Surgery would be in the form of right shoulder arthroscopy, subacromial decompression, rotator cuff repair. This would likely do a takedown and the repair given the articular surface tear has retracted somewhat significantly and would be quite difficult to capture using trans tendon repair techniques. Patient understands is a half pack-a-day smoker that can increase the chance of complications as well as decrease the chance of healing of this tear. Patient understands we will try to quit or cut back and wishes to proceed with the surgery as booked. Pros and cons risks and benefits were discussed with the patient including but not limited to infection, pain, stiffness, bleeding, damage to surrounding structures, neurovascular injury, recurrence or retear, failure or wear of hardware or fixation, instability, fracture, deep vein thrombosis and pulmonary embolism, anesthetic risks, , patient dissatisfaction, need for further surgery and other risks. Patient understood and wished to proceed with surgery, and signed the informed consent documentation. Patient counselled on non-operative and operative means of treating shoulder pain. Conservative options include but not limited to: 1. Rest and Activity Modification: Giving your shoulder time to heal by avoiding movements that cause pain can help. This may involve limiting overhead activities or heavy lifting. 2. Physical Therapy: A physical therapist can guide you through exercises that strengthen the muscles around the shoulder, improve flexibility, and reduce strain on the rotator cuff tendon. 3. Ice and Heat Therapy: Applying ice to the shoulder can help reduce swelling and pain, especially after activity. Heat can be helpful to relax tense muscles and improve blood flow before exercises. 4. Anti-Inflammatory Medications: Sunh-rqy-ahxjnyy medications like ibuprofen or naproxen can help reduce pain and inflammation in the tendon. 5. Corticosteroid Injections: If the pain is more severe, a steroid injection can reduce inflammation in the shoulder and provide relief for a longer period. 6. Platelet-Rich Plasma (PRP) Injection: This treatment involves using your own blood to promote healing in the tendon. The plasma is rich in growth factors that can encourage tissue repair. 7. TENS (Transcutaneous Electrical Nerve Stimulation): This therapy uses a small electrical current to help manage pain and promote healing by stimulating nerves. (2) Right rotator cuff tear: Status: Acute Orders: Orders Shoulder min 2 Views Today M25.511 - Pain in right shoulder Clinical Quality Measures Falls Risk Screening/Assistive Devices Have you fallen in the past year?: No Ortho Exam General General: Yes no acute distress Neurologic: Yes alert and Yes oriented x3 Psychologic: Yes reasonable and appropriate Right Shoulder Skin/Wound: Yes CDI, No ecchymosis, No erythema and No swelling Testing: Positive Hawkin's, Neer's, AROM-Forward Elevation 0-180, AROM-External Rotation at side 0-60, empty can and belly press normal; Negative Speed's, TTP Biceps, TTP AC Joint, Drop Arm, [place], cross arm, lift off or scapular winging SHOULDER: normal motor and sens to ax nerve, and MRU and AIN/PIN. strength full 5 in FE and ER [facility] Medical History Smoker Right rotator cuff tear Right shoulder pain Home Medications ?Medication ?Instructions ?Recorded ?Last Taken ?Type acetaminophen-pamabrom 500 mg-25 1 tab PO Q6H PRN mens trual pain 05/14/25 Unknown History mg tablet (Midol) Allergy/AdvReac Type Severity Reaction Status Date / Time No Known Allergies Allergy Verified 06/10/25 05:40 Surgical History Surgical history of tubal ligation H/O knee surgery Social History Smoking Status: Light Smoker (<10/day) alcohol intake: never substance use type: does not use caffeine: Yes frequency: 1-2 times per week seatbelt use: never do you feel safe at home: Yes additional social history: [employer] ([employer]) Patient works at [employer]s Vital Signs Vital Signs Vital Signs: 06/10/25 05:57 06/10/25 05:57 06/10/25 06:59 Temperature 98 F 98 F Temperature Source Temporal Pulse Rate 84 84 Respiratory Rate 16 16 Respiratory Pattern Normal Blood Pressure 112/85 H 112/85 H Blood Pressure Mean 94 Blood Pressure Source Monitor Blood Pressure Position Semi-Fowlers Blood Pressure Location Right Arm Pulse Ox 98 98 Oxygen Delivery Method Room Air Room Air Weight Weight: 143 lb 4.807 oz Body Mass Index (BMI) 25.4
[2025-06-10] MEDS: Cefazolin 1 GM/5 ML Vial 2 GM IV (07:29)
[2025-06-10] MEDS: Midazolam 2 MG/2 ML Syringe IV (07:29)
[2025-06-10] MEDS: fentaNYL 100 MCG/2 ML Ampul 50 MCG IV (07:35)
[2025-06-10] MEDS: Lidocaine 1% (5 ml sdv) 5 ML Vial IV (07:35)
[2025-06-10] MEDS: Epinephrine (1 mg/ml) 1 MG/ML VIAL (07:50)
--- NOTE | 2025-06-10 08:21 | DCINST_ITS ---
Discharge Instructions Diet Discharge Diet: No restrictions Activity Ice area for (Minutes): 10 Lifting Restrictions: pendulums 4x/day, no lifting over 2 pounds, sling 2 weeks Additional Activity Instructions:: ok for hand wrist elbow ROM gently, ok to remove sling at rest Dressing / Incision Call your doctor if your incision/area has: Continuous Slow Oozing, Sudden Increased Bleeding, Increased Pain/ Swelling, Increased Redness, Foul Smelling Discharge and Swelling at the incision site Call your doctor if you observe: Fever of 101 or Higher, Coldness, Increased Pain and Numbness or Tingling Change Dressing in: 2 days Cleanse incision/area with: Do not get Incision Wet Additional Dressing/Incision Instructions:: keep steris strips on (small tapes), ok to remove large dressing, then replace with smaller dressings Follow Up Care Please Follow Up With: Tramaine Fuentes MD When: within 2 weeks Test Results: Test results from this visit will be discussed in further detail at your follow- up appointment, if applicable. Discharge Plan Admission Attending Provider: Tramaine Fuentes Primary Care Provider: Rosemarie Olson Instructions Patient Instructions: After Shoulder Arthroscopy Print Language: Kinyarwanda Discharge Orders/Prescriptions Prescriptions: New oxycodone-acetaminophen [Percocet] 5-325 mg tablet 1 tab PO Q6H MDD 6 5 Days Qty: 20 0RF No Action Midol 500-25 mg tablet 1 tab PO Q6H PRN (Reason: menstrual pain) Referrals / Follow Up: Tramaine Fuentes MD [Med Staff - Active Staff] - Rosemarie Olson PA-C [Primary Care Provider] - Disposition Disposition (needs filled in before D/C Order can be placed): Home, Self Care
--- NOTE | 2025-06-10 08:25 | OP.PCM_ITS ---
Problems Associated Problem List Diagnoses (1) Right rotator cuff tear: (2) Right shoulder pain: Procedures Musculoskeletal [id number]-29xxx: Other Procedure See Report Operative Report (Standard) Operative Information Date of Procedure: 06/10/25 Pre-Operative Diagnosis: Right impingement syndrome and rotator cuff tear Post-Operative Diagnosis: Same Surgery/Procedure Performed: Right shoulder arthroscopic subacromial decompression and rotator cuff repair fleet coordinator: Yes Squeegee Finisher: starla Tasks completed by assistant professor of mathematics: Retracting Type of Anesthesia: Block,Regional and General RN Documented Start/Stop Times: Operation Date: 06/10/25 07:30 Case Time Into Pre-Op 06/10/25 05:40 Out of Pre-Op 06/10/25 07:28 Anesthesia Start 06/10/25 07:29 Into Room 06/10/25 07:29 Procedure Start 06/10/25 07:51 Procedure Start Time: 07:51 Procedure Stop Time: 08:28 Select all DRAINS/GRAFTS/IMPLANTS that apply: Implanted device Implanted device details: Arthrex 4.75 mm swivel lock anchor bio composite Estimated Blood Loss: 20 Specimen collected: No Description of surgery: Patient brought to the operating room theater. Placed supine on the table. General anesthesia induced. 2 g IV Ancef administered prior to the start of the case. Patient transferred right side up lateral decubitus beanbag positioner. Axillary roll used. SCDs on the legs. All bony prominences padded. Upper extremity prepped and draped in the usual sterile fashion with chlorhexidine- based prep solution allowing over 3 minutes drying time prior to draping. 5 pounds of inline traction with the arm in 45 degrees of abduction was utilized. Preoperative timeout performed to confirm the site patient and the surgery. Began by inserting the arthroscope into the intra-articular portion of the shoulder through a standard posterior arthroscopy portal. Used inside out spinal needle localization to perform an anterior portal through the rotator interval. Did a full diagnostic arthroscopy. Cartilage on the glenoid and humeral head was normal. I probed the biceps the root was stable. The biceps long head appeared normal no subluxation. The glenoid labrum was normal all the way around. Subscapularis was normal. The infraspinatus was normal. No loose bodies. There is a near full-thickness anterior leading edge tear of the supraspinatus tendon. I marked this with a spinal needle from inside the joint. I then removed the arthroscope and then inserted the arthroscope into the subacromial space. I did a lateral based portal at the location of the spinal needle. Identified the tear site. There is hemorrhage and hemorrhagic bursa overlying the tear. I did a complete bursectomy for a moderate amount of bursitis. Identified the anterior leading edge of the acromion very slight downsloping I flatten this using a high-speed brooke instrument to flat margins for about 3 mm. Identified the tear it was about 1 cm from anterior to posterior. It was a near full-thickness high-grade partial-thickness tear. I completed the tear using a 11 blade and then just gently cleaned up the lateral fibers using a shaving instrument. The tear was mobile. I used the Arthrex power pick through a separate superior lateral portal to multiple trephination's at the greater tuberosity footprint site. Placed a 7x7mm canula. I then used Arthrex fiber tape in an inverted horizontal mattress fashion medial to the tear site. This achieved a good purchase in the tendon with a mobile tendon again. I then inserted this into a Arthrex 4.75 mm bio composite swivel lock anchor just off the lateral tuberosity. This achieved good purchase into the bone suture was cut short. I then used the additional stay suture with the knotless mechanism through a small leading edge portion of the tear for additional fixation. Again the tear was very well repaired and compressed down to the tuberosity at that point. Sutures cut short arthroscopy pictures taken and saved onto the system. Arthroscope withdrawn wounds thoroughly irrigated. Portals closed with 3-0 Monocryl suture. Skin cleaned with wet dry dressing followed application of Steri-Strips Adaptic 4 x 4 gauze ABD dressing cloth tape with a abduction pillow sling for the upper extremity. Patient woken up from the general anesthetic transferred off the operating table and taken to postanesthetic care unit in stable condition. All sponge needle instrument counts were correct no complications plan for the patient discharge home according to day surgery criteria pendulum exercises and follow-up in the office within 2 weeks time. CPT 39122, 67625 Surgical Findings: As above Complications Complications: No Admit VTE Documentation VTE Present on Admission: No VTE Mechan Device Prophylaxis: SCD's VTE Pharm Prophylaxis ordered?: No
--- NOTE | 2025-06-10 08:37 | PCM.POST.ANE ---
Anesthesia: Postop Eval I Current Vital Signs Temperature: 97.1 F Pulse Rate: 86 Blood Pressure: 105/69 Respiratory Rate: 16 Pulse Ox: 97 Assessment Airway patent: Yes Spontaneous unlabored respirations: Yes nausea: No Vomiting: No Anesthesia Complication: No Fluid Hydration Crystalloid volume administer (ml): 700 Total IV fluid infused: 700 Progress Note Anesthesia document: Postop Eval 1 completed: Yes
--- NOTE | 2025-06-10 09:47 | POSTOPAN2_ITS ---
Anesthesia Postop Eval I Sum Postop Eval Completion status Anesthesia document: Postop Eval 1 completed: Yes Anesthesia Postop Eval I Summary Anesthesia Postop Eval I Summary: Anesthesia Postop Eval I: Assessment Summary Airway patent Yes 06/10/25 08:37 CUSTOMER MARKETING MANAGER.TNES Spontaneous unlabored Yes 06/10/25 08:37 CUSTOMER MARKETING MANAGER.TNES respirations Mental status nausea No 06/10/25 08:37 CUSTOMER MARKETING MANAGER.TNES Vomiting No 06/10/25 08:37 CUSTOMER MARKETING MANAGER.TNES Anesthesia Postop Eval I: Fluid Summary Crystalloid volume administer 700 06/10/25 08:37 CUSTOMER MARKETING MANAGER.TNES (ml) Colloids volume administered ( ml) Blood Product volume administered (ml) Total IV fluid infused 700 06/10/25 08:37 CUSTOMER MARKETING MANAGER.TNES Anesthesia Postop Eval I: Summary Notes Anesthesia Complication No 06/10/25 08:37 CUSTOMER MARKETING MANAGER.TNES Anesthesia Complication Comment: Post-operative progress note Anesthesia: Postop Eval II Evaluation Mental status: Awake and Calm Pain Level: 1 nausea: No Vomiting: No Complications Anesthesia Complication: No
--- NOTE | 2025-06-10 09:47 | PCM.POSTANE2 ---
Anesthesia Postop Eval I Sum Postop Eval Completion status Anesthesia document: Postop Eval 1 completed: Yes Anesthesia Postop Eval I Summary Anesthesia Postop Eval I Summary: Anesthesia Postop Eval I: Assessment Summary Airway patent Yes 06/10/25 08:37 BUFFING LINE SET UP WORKER.TNES Spontaneous unlabored Yes 06/10/25 08:37 BUFFING LINE SET UP WORKER.TNES respirations Mental status nausea No 06/10/25 08:37 BUFFING LINE SET UP WORKER.TNES Vomiting No 06/10/25 08:37 BUFFING LINE SET UP WORKER.TNES Anesthesia Postop Eval I: Fluid Summary Crystalloid volume administer 700 06/10/25 08:37 BUFFING LINE SET UP WORKER.TNES (ml) Colloids volume administered ( ml) Blood Product volume administered (ml) Total IV fluid infused 700 06/10/25 08:37 BUFFING LINE SET UP WORKER.TNES Anesthesia Postop Eval I: Summary Notes Anesthesia Complication No 06/10/25 08:37 BUFFING LINE SET UP WORKER.TNES Anesthesia Complication Comment: Post-operative progress note Anesthesia: Postop Eval II Evaluation Mental status: Awake and Calm Pain Level: 1 nausea: No Vomiting: No Complications Anesthesia Complication: No
== END 2025-06-10 09:34 | disposition home or self-care (01) ==
LOC: SDC 05:27 → AC 05:28
PROVIDERS: PCP Family Medicine; Referring Provider Orthopaedic Surgery Sports Medicine; Visit Provider Orthopaedic Surgery Sports Medicine
PROC: (CPT 29805; principal; 2025-06-10 07:10)
DX: M75.101 Unspecified rotator cuff tear or rupture of right shoulder, not specified as traumatic (principal); M75.41 Impingement syndrome of right shoulder; F17.200 Nicotine dependence, unspecified, uncomplicated
CPT/HCPCS: 29827; 29826; 01630; 64415; C1713; J2405